=== PATIENT | male | born 1930 | race Caucasian/White ===

== ENCOUNTER → 2017-08-31 | Day surgery (SDC) | payer OTHER ==
[~2017-08-31] VITALS: Ht 167.6 cm; Wt 71.5 kg
[~2017-08-31] MED LIST: *ENALAPRILAT 1.25 MG/ML VIAL PERIprocedural Use ONLY ONE; ACETAMINOPHEN 1000 MG/100 ML 100 ML IV ONE; ASPI81TA23 PO; CEPH-459 PO; CHLORHEXIDINE GLUCONATE 2 % 1 PACK (2 CLOTHS) TOPICAL PRN; DO NOT ADM ANY ANTICOAGULANT DRUGS PRN; LACTATED RINGER'S 1000 ML IV PRN; LISI-515 PO; METF500T PO; METOPROLOL TARTRATE 25 MG TAB PO PRN; ONDANSETRON ODT 4 MG TAB SL PRN; PERC10TA27 PO; PERC5TAB12 PO; POVIDONE IODINE 5% (ANTISEPSIS KIT) 4 APPLICATIONS EACH NARE PRN; SODIUM CHLORID 0.9% 500 ML IV PRN; SODIUM CHLORIDE 0.9% INJ 100 ML ONE; ceFAZolin 2 GM/DEX PREMIX 50 ML IV SCH; ceFAZolin INJ 1,000 MG VIAL ONE; hydrALAZINE HCL 20 MG/ML VIAL IV PUSH ONE; hydrALAZINE HCL 20 MG/ML VIAL ONE; oxyCODONE/ACETAMINOPHEN 5 MG/325 MG TAB PO PRN
[2017-08-31 08:45] LABS: AUTOMATED NEUTROPHIL # 3.8 TH/MM3 (1.8-7.7); BASOPHIL % 0.5 % (0.0-2.0); EOSINOPHIL # 0.1 TH/MM3 (0-0.4); EOSINOPHIL % 1.7 % (0.0-4.0); HEMATOCRIT 42.5 % (39.0-51.0); HEMOGLOBIN 14.5 GM/DL (13.0-17.0); LYMPH % 27.4 % (9.0-44.0); LYMPHOCYTE # 1.6 TH/MM3 (1.0-4.8); MEAN CELL VOLUME 83.8 FL (80.0-100.0); MEAN CORPUSCULAR HEMOGLOBIN 28.6 PG (27.0-34.0); MEAN CORPUSCULAR HGB CONC 34.2 % (32.0-36.0); MEAN PLATELET VOLUME 7.4 FL (7.0-11.0); MONO % 6.6 % (0.0-8.0); MONOCYTE # 0.4 TH/MM3 (0-0.9); NEUT % 63.8 % (16.0-70.0); PLATELET COUNT 183 TH/MM3 (150-450); RED BLOOD COUNT 5.07 MIL/MM3 (4.50-5.90); RED CELL DISTRIBUTION WIDTH 13.5 % (11.6-17.2); WHITE BLOOD COUNT 5.9 TH/MM3 (4.0-11.0)
--- NOTE | 2017-08-31 11:48 | PD.OP ---
Operative Report Date of Surgery: Aug 31, 2017 Preoperative Diagnosis: (1) Bladder mass Postoperative Diagnosis: (1) Bladder mass Procedure: Cystoscopy and transurethral resection of bladder tumor Anesthesia: General Surgeon: Glenroy Bell Ice Handler(s): None Operation and Findings: Indication for procedures: Case of a pleasant 87-year-old gentleman who was recently discovered to have a large tumor mass extending from the dome towards the posterior bladder wall and presents now for transurethral resection. Operative procedure in detail: Patient was brought to the operating room suite and placed supine on the OR table. He was then placed under general anesthesia. He was then repositioned in the dorsolithotomy position and prepped and draped in normal sterile fashion. After an appropriate timeout was undertaken, I proceeded with cystoscopic evaluation utilizing the rigid cystoscope with the 20 Nepalese sheath and the 30 lens. Once again noted was a large tumor mass extending from the bladder dome down the upper posterior wall. The tumor was frondular in appearance. Both right and left ureteral orifice ease were correct anatomic position draining clear yellow urine. I exchanged the rigid cystoscope for the resectoscope with the 24 Nepalese Cutting Loop and proceeded with transurethral resection of this large bladder tumor. The tumor base was greater than 5 cm in size. The tumor itself did appear quite superficial nature. Once the tumor was fully resected the base was fulgurated for hemostasis. A 20 Nepalese 10 cc Floyd catheter was then placed and connected to gravity drainage. The patient tolerated the procedures without complications and was transferred to the PACU in satisfactory condition. Glenroy Bell MD Aug 31, 2017 11:48
[2017-08-31 13:57] VITALS: BP 164/52; PULSE 68; RESP 18; TEMP 97.4; O2SAT 97
--- NOTE | 2017-08-31 22:55 | EKG ---
Date Performed: 08/31/2017 Time Performed: 08:03:37 PTAGE: 87 years EKG: SINUS BRADYCARDIA WITH OCCASIONAL SUPRAVENTRICULAR PREMATURE COMPLEXES RIGHT BUNDLE BRANCH BLOCK ABNORMAL ECG PREVIOUS TRACING : 02/05/2014 12.59 DOCTOR: Nelsy Jules Interpretating Date/Time 08/31/2017 22:52:00
== END | disposition home or self-care (01) ==
LOC: HSDC 07:22
PROVIDERS: ATTEND Urology
DX: D49.4 Neoplasm of unspecified behavior of bladder (principal); I10 Essential (primary) hypertension; E11.9 Type 2 diabetes mellitus without complications; Z79.84 Long term (current) use of oral hypoglycemic drugs; Z79.82 Long term (current) use of aspirin
CPT/HCPCS: 00912; 52240; 85025; 88307; 93005; J0131; J0360; J0690; J3010; J7120

== ENCOUNTER 2017-12-30 13:26 | Inpatient (IN) ==
[2017-12-30] MEDS ORDERED: Morphine Inj 4 MG/ML Vial IV.PUSH ONE (14:29)
--- NOTE | 2017-12-30 14:32 | ED ---
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 He states the pain is currently a 10 out of 10. He denies any fevers, diarrhea, or other symptoms. They do not know of any exacerbating or alleviating factors. He denies any chest pains, shortness of breath, or other symptoms. Related Data Home Medications Medication Instructions Recorded Confirmed lisinopril 2.5 mg PO BID 12/30/17 12/30/17 metformin 1,000 mg PO BID 12/30/17 12/30/17 oxycodone 10 mg PO BID PRN 12/30/17 12/30/17 trazodone 25 mg PO HS 12/30/17 12/30/17 Allergies Allergy/AdvReac Type Severity Reaction Status Date / Time No Known Allergies Allergy Verified 12/30/17 13:38 Review of Systems ROS: all other systems reviewed are negative PMFSH History History Provided By: Patient Medical History Medical History Diabetes (Acute) Hx of bladder cancer (Acute) Hypertension (Acute) Surgical History Surgical History Hx of bladder repair surgery (Acute) Family History Family History Other No pertinent family history Social History Social History Substance History: No History of Abuse Smoking Status: Heavy tobacco smoker Tobacco Type: Cigars How Often Do You Have a Drink Containing Alcohol: Never Recent Travel in [facility] within the Last 8 Weeks: No Recent Out of Country Travel within the Last 8 Weeks: No Exam Narrative Exam Narrative: GENERAL: Well-developed elderly male patient currently in moderate distress. Awake, alert, oriented x3. SKIN: Focused skin assessment warm/dry. HEAD: Atraumatic. Normocephalic. EYES: Pupils equal and round. No scleral icterus. No injection or drainage. ENT: No nasal bleeding or discharge. Mucous membranes pink and moist. NECK: Trachea midline. No JVD. CARDIOVASCULAR: Regular rate and rhythm. No murmur appreciated. RESPIRATORY: No accessory muscle use. Clear to auscultation. Breath sounds equal bilaterally. GASTROINTESTINAL: Abdomen diffuse abdominal tenderness, moderately distended. Hepatic and splenic margins not palpable. MUSCULOSKELETAL: No obvious deformities. No clubbing. No cyanosis. No edema. NEUROLOGICAL: Awake and alert. No obvious cranial nerve deficits. Motor grossly within normal limits. Normal speech. PSYCHIATRIC: Appropriate mood and affect; insight and judgment normal. Course Initial Documented Vital Signs Temperature 97.8 F 12/30/17 13:35 Pulse Rate 92 H 12/30/17 13:35 Respiratory Rate 16 12/30/17 13:35 Blood Pressure 181/83 H 12/30/17 13:35 Pulse Oximetry 95 12/30/17 13:35 Last Documented Vital Signs Temperature 97.8 F 12/30/17 13:35 Pulse Rate 66 12/30/17 17:14 Respiratory Rate 18 12/30/17 17:14 Blood Pressure 208/75 H 12/30/17 17:14 Pulse Oximetry 96 12/30/17 17:14 Medical Decision Making MDM Narrative Medical decision making narrative: Lab work shows elevated BUN and creatinine and CAT scan had to be done without contrast. It shows significant ascites and left pleural effusion. There is also a notable small bowel obstruction. Patient's blood pressure is fairly elevated in the ER, likely secondary to pain. He was given multiple courses of pain medications. He will need to have this issue treated and observed as well. At this point, plan would be to admit the patient for further treatment. Case is discussed with Dr. Felipe for admission. Medical Screen Exam Complete: Yes Emergency Medical Condition: Yes Differential Diagnosis Differential Diagnosis: Obstruction versus perforation versus acute intra- abdominal processes versus gastroenteritis Lab Data Lab results reviewed: Yes I reviewed the patient's lab results. Result diagrams: 12/30/17 14:47 12/30/17 14:47 Lab Results 12/30/17 12/30/17 12/30/17 Range/Units 14:47 14:47 14:47 CBC w Diff Auto diff final WBC 8.9 (4.0-11.0) th/mm3 RBC 5.51 (4.50-5.90) mil/mm3 Hgb 15.7 (13.0-17.0) gm/dL Hct 47.1 (39.0-51.0) % MCV 85.4 (80.0-100.0) fL MCH 28.5 (27.0-34.0) pg MCHC 33.4 (32.0-36.0) % RDW 13.1 (11.6-17.2) % Plt Count 205 (150-450) th/mm3 MPV 7.2 (7.0-11.0) fL Neut % (Auto) 79.7 H (16.0-70.0) % Lymph % (Auto) 10.4 (9.0-44.0) % [place] % (Auto) 9.3 H (0.0-8.0) % Eos % (Auto) 0.2 (0.0-4.0) % Baso % (Auto) 0.4 (0.0-2.0) % Neut # (Auto) 7.2 (1.8-7.7) th/mm3 Lymph # (Auto) 0.9 L (1.0-4.8) th/mm3 [place] # (Auto) 0.8 (0.0-0.9) th/mm3 Eos # (Auto) 0.0 (0.0-0.4) th/mm3 Baso # (Auto) 0.0 (0.0-0.2) th/mm3 WBC Differential . Differential Comment . Sodium 140 (136-145) meq/L Potassium 4.6 (3.5-5.1) meq/L Chloride 103 (98-107) meq/L Carbon Dioxide 30.6 (21.0-32.0) meq/L Anion Gap 6 (5-15) meq/L BUN 40 H (7-18) mg/dL Creatinine 2.00 H (0.60-1.30) mg/dL Estimated GFR 32 L (>89) mL/min POC Glucose (68-110) mg/dl Random Glucose 164 H (74-106) mg/dL Lactic Acid 1.7 (0.4-2.0) mmol/L Calcium 8.8 (8.5-10.1) mg/dL Total Bilirubin 1.0 (0.2-1.0) mg/dL AST 16 (15-37) U/L ALT 12 (12-78) U/L Alkaline Phosphatase 73 (45-117) U/L Total Protein 6.9 (6.4-8.2) g/dL Albumin 2.9 L (3.4-5.0) g/dL Lipase 89 (73-393) U/L Urine Color (Yellw/Straw) Urine Clarity (Clear) Urine pH (5.0-8.5) Ur Specific [place] (1.002-1.035) Urine Protein (Neg-Trace) mg/dL Urine Glucose (UA) (Negative) mg/dL Urine Ketones (Negative) mg/dL Urine Occult Blood (Negative) Urine Nitrate (Negative) Urine Bilirubin (Negative) Urine Urobilinogen (Less than 2) mg/dL Ur Leukocyte Esterase (Negative) Urine RBC (0-3) /hpf Urine WBC (0-5) /hpf Ur Squamous Epith Cells (0-5) /hpf Urine Bacteria (None) /hpf Urine Mucus (Occasional) /lpf Micro UA Comment Ur Microscopic Review Urine Culture Comments 12/30/17 12/30/17 Range/Units 16:00 18:16 CBC w Diff WBC (4.0-11.0) th/mm3 RBC (4.50-5.90) mil/mm3 Hgb (13.0-17.0) gm/dL Hct (39.0-51.0) % MCV (80.0-100.0) fL MCH (27.0-34.0) pg MCHC (32.0-36.0) % RDW (11.6-17.2) % Plt Count (150-450) th/mm3 MPV (7.0-11.0) fL Neut % (Auto) (16.0-70.0) % Lymph % (Auto) (9.0-44.0) % [place] % (Auto) (0.0-8.0) % Eos % (Auto) (0.0-4.0) % Baso % (Auto) (0.0-2.0) % Neut # (Auto) (1.8-7.7) th/mm3 Lymph # (Auto) (1.0-4.8) th/mm3 [place] # (Auto) (0.0-0.9) th/mm3 Eos # (Auto) (0.0-0.4) th/mm3 Baso # (Auto) (0.0-0.2) th/mm3 WBC Differential Differential Comment Sodium (136-145) meq/L Potassium (3.5-5.1) meq/L Chloride (98-107) meq/L Carbon Dioxide (21.0-32.0) meq/L Anion Gap (5-15) meq/L BUN (7-18) mg/dL Creatinine (0.60-1.30) mg/dL Estimated GFR (>89) mL/min POC Glucose 137 H (68-110) mg/dl Random Glucose (74-106) mg/dL Lactic Acid (0.4-2.0) mmol/L Calcium (8.5-10.1) mg/dL Total Bilirubin (0.2-1.0) mg/dL AST (15-37) U/L ALT (12-78) U/L Alkaline Phosphatase (45-117) U/L Total Protein (6.4-8.2) g/dL Albumin (3.4-5.0) g/dL Lipase (73-393) U/L Urine Color Yellow (Yellw/Straw) Urine Clarity Clear (Clear) Urine pH 5.5 (5.0-8.5) Ur Specific [place] Greater/equal 1.030 (1.002-1.035) Urine Protein 100 H (Neg-Trace) mg/dL Urine Glucose (UA) Negative (Negative) mg/dL Urine Ketones Trace H (Negative) mg/dL Urine Occult Blood Large H (Negative) Urine Nitrate Negative (Negative) Urine Bilirubin Negative (Negative) Urine Urobilinogen 1.0 (Less than 2) mg/dL Ur Leukocyte Esterase Negative (Negative) Urine RBC 51-189 H (0-3) /hpf Urine WBC 0-5 (0-5) /hpf Ur Squamous Epith Cells 0-5 (0-5) /hpf Urine Bacteria Few H (None) /hpf Urine Mucus Few H (Occasional) /lpf Micro UA Comment Culture not ind Ur Microscopic Review Microscopic reviewed Urine Culture Comments Culture not ind Imaging Data Attestation: I personally reviewed and interpreted this imaging study as follows : Radiologist's impression: Abdomen/Pelvis CT 12/30/17 14:29 CONCLUSION: 1. Left lower lobe consolidation and left pleural effusion. 2. Ascites. 3. Atherosclerosis. 4. Severe diverticulosis. 5. Abnormal dilated loops of small intestine are identified with transition point in the central abdomen, imaging features characteristic of small bowel obstruction. ECG Data Attestation: I personally reviewed and interpreted this ECG as follows: Interpretation: EKG shows normal sinus rhythm with a rate of 76 bpm, there is a right bundle branch block pattern. No signs of acute ST elevations or depressions. Discharge Plan Discharge Disposition Patient Disposition: 30 Still Patient Discharge Condition Condition: Stable Discharge Details Anticipated Discharge Date: 12/30/17 Diagnosis: Small bowel obstruction Physicians Team ED Provider: Marie Javier Primary Care Provider: UNKNOWN, Attending Provider: Andres Wellington Other Providers: Stu Salazar Discharge Interventions Interventions: ED Discharge Assessment Last Done: 12/30/17 17:50 Vital Signs Last Done: 12/30/17 17:14 Status ED Status: Left Department Discharge Information Discharge Date/Time: 12/30/17 17:45
[2017-12-30 14:55] LABS: Baso % (Auto) 0.4 % (0.0-2.0); Eos % (Auto) 0.2 % (0.0-4.0); Hematocrit 47.1 % (39.0-51.0); Hemoglobin 15.7 gm/dL (13.0-17.0); Lymph # (Auto) 0.9 th/mm3 (1.0-4.8); Lymph % (Auto) 10.4 % (9.0-44.0); Mean Corpuscular HGB Conc 33.4 % (32.0-36.0); Mean Corpuscular Hemoglobin 28.5 pg (27.0-34.0); Mean Corpuscular Volume 85.4 fL (80.0-100.0); Mean Platelet Volume 7.2 fL (7.0-11.0); Mono # (Auto) 0.8 th/mm3 (0.0-0.9); Mono % (Auto) 9.3 % (0.0-8.0); Neut # (Auto) 7.2 th/mm3 (1.8-7.7); Neut % (Auto) 79.7 % (16.0-70.0); Platelet Count 205 th/mm3 (150-450); Red Blood Count 5.51 mil/mm3 (4.50-5.90); Red Cell Distribution Width 13.1 % (11.6-17.2); White Blood Count 8.9 th/mm3 (4.0-11.0)
[2017-12-30 15:21] LABS: Chloride 103 meq/L (98-107); Potassium 4.6 meq/L (3.5-5.1); Sodium 140 meq/L (136-145)
[2017-12-30 15:24] LABS: Calcium 8.8 mg/dL (8.5-10.1)
[2017-12-30 15:25] LABS: Albumin 2.9 g/dL (3.4-5.0); Anion Gap 6 meq/L (5-15); Blood Urea Nitrogen 40 mg/dL (7-18); Carbon Dioxide 30.6 meq/L (21.0-32.0); Glucose,Random 164 mg/dL (74-106); Lipase 89 U/L (73-393)
[2017-12-30 15:28] LABS: Alanine Aminotransferase 12 U/L (12-78); Aspartate Aminotransferase 16 U/L (15-37); Glomerular Filtration Rate 32 mL/min (>89)
[2017-12-30 15:30] LABS: Total Protein 6.9 g/dL (6.4-8.2)
[2017-12-30 15:31] LABS: Alkaline Phosphatase 73 U/L (45-117)
[2017-12-30 16:07] LABS: Bilirubin,Urine Negative (Negative); Clarity,Urine Clear (Clear); Color,Urine Yellow (Yellw/Straw); Glucose,Urine (UA) Negative (Negative); Leukocyte Esterase,Urine Negative (Negative); Nitrite,Urine Negative (Negative); PH,Urine 5.5 (5.0-8.5); Specific Gravity,Urine Greater/Equal 1.030 (1.002-1.035)
--- NOTE | 2017-12-30 16:13 | CT ---
EXAM DATE: 12/30/2017 2:29 PM EDT AGE/SEX: 87 years / Male INDICATIONS: Abdominal pain. Bloating. Nausea. Vomiting. CLINICAL DATA: This is the patient's initial encounter. Patient reports that signs and symptoms have been present for 1 day and indicates a pain score of 10/10. MEDICAL/SURGICAL HISTORY: Carcinoma, bladder. Diabetes. Hypertension. None. RADIATION DOSE: 20.72 CTDI (mGy) COMPARISON: POI, CT ABDOMEN AND PELVIS W/ CONTRAST, 03/12/2017. . TECHNIQUE: Multiple contiguous axial images were obtained through the abdomen. Images were obtained using multiple row detector helical technique. Using automated exposure control and adjustment of the mA and/or kV according to patient size, radiation dose was kept as low as reasonably achievable to o btain optimal diagnostic quality images. DICOM format image data is available electronically for rev iew and comparison. FINDINGS: There is a large left effusion and left lower lobe airspace disease. Atherosclerotic calcification of the aorta and coronary arteries noted. There is ascites identified greatest in the perihepatic regio n. There is severe diverticulosis of the sigmoid colon and descending colon identified without eviden ce of diverticulitis. The appendix is normal. Distal ileal loops are decompressed. There is a transit ion point in the central abdomen proximal to which there are moderately dilated loops of fluid and ai r-filled small bowel. Calcified splenic granulomas are noted. There are pancreatic calcifications alana racteristic of chronic pancreatitis. Adrenals are unremarkable. Bilateral renal vascular calcificatio ns are noted. There is mild distention of the gallbladder. There are degenerative changes of the spin e noted. 2 mm nonobstructing left lower pole renal calculus. CONCLUSION: 1. Left lower lobe consolidation and left pleural effusion. 2. Ascites. 3. Atherosclerosis. 4. Severe diverticulosis. 5. Abnormal dilated loops of small intestine are identified with transition point in the central abd omen, imaging features characteristic of small bowel obstruction. Electronically signed by: Rah Moore MD 12/30/2017 4:11 PM EDT
[2017-12-30] MEDS ORDERED: Morphine Sulfate Inj 2 MG/ML Vial IV.PUSH ONE (16:16)
[2017-12-30 16:17] LABS: Bacteria,Urine Few /hpf; Mucus,Urine Few /lpf (Occasional); RBC,Urine 51-189 /hpf (0-3); Squamous Epithelial Cell,Urine 0-5 /hpf (0-5); WBC,Urine 0-5 /hpf (0-5)
[2017-12-30] MEDS ORDERED: Dextrose 50% in Water 50 ML Vial IV.PUSH PRN (17:24)
--- NOTE | 2017-12-30 17:33 | P.HPIM ---
History of Present Illness Primary Care Physician: UNKNOWN Chief Complaint: abdominal pain History of Present Illness: patient is a 87 y/o male with history of bladder cancer,hypertension and diabetes who presented to ER with abdominal pain. he says that the pain started two days ago. pain is more or less generalized with no radiation. pain is moderate in intensity. pain was associated with nausea, emesis and some loose bowel movements yesterday. he denies any sob, cough or fever. Inpatient Certification: I certify that the inpatient services were ordered in accordance with Medicare regulations governing the order. This includes certification that hospital inpatient services are reasonable and necessary and in the case of services not specified as inpatient-only under 42 CFR 419.22(n), that they are appropriately provided as inpatient services in accordance to with the 2-midnight benchmark under 43 CFR 412.3(e) Estimated Total Length of Stay (Days): 2 Plans for Post Hospital Care: Home Review of Systems All other systems reviewed negative except as stated in HPI PMFSH - History History Provided By: Patient - Medical History Medical History: Medical History (Last Reviewed 12/30/17 @ 17:29 by Andres Wellington MD) Diabetes Hx of bladder cancer Hypertension - Surgical History Surgical History: Surgical History (Last Reviewed 12/30/17 @ 17:29 by Andres Wellington MD) Hx of bladder repair surgery - Family History Family History: Family History (Last Updated 12/30/17 @ 17:28 by Andres Wellington MD) Other No pertinent family history - Tobacco History Tobacco Use In Past 30 Days: Yes Smoking Status: Heavy tobacco smoker Tobacco Type: Cigars - Alcohol History How Often Do You Have a Drink Containing Alcohol: Never - Substance Use History Substance History: No History of Abuse - Travel History Recent Travel in the [place] Within the Last 8 Weeks: No Recent Travel Out of the Country Within the Last 8 Weeks: No - Immunization History Tetanus Immunization: Unsure Medications and Allergies Active Medications: Active Medications Sodium Chloride (Ns Flush) 2 ml IV.FLUSH PRN PRN PRN Reason: FLUSH AFTER USING IV ACCESS Last Admin: 12/30/17 14:53 Dose: 2 ml Allergies Allergy/AdvReac Type Severity Reaction Status Date / Time No Known Allergies Allergy Verified 12/30/17 13:38 Home Medications Medication Instructions Recorded Confirmed Type lisinopril 2.5 mg PO BID 12/30/17 12/30/17 History metformin 1,000 mg PO BID 12/30/17 12/30/17 History oxycodone 10 mg PO BID PRN 12/30/17 12/30/17 History trazodone 25 mg PO HS 12/30/17 12/30/17 History Exam Vital signs: Vital Signs 12/30/17 13:35 12/30/17 15:20 12/30/17 17:14 Temperature 97.8 F Pulse Rate 92 H 72 66 Respiratory Rate 18 Blood Pressure 181/83 H 200/77 H 208/75 H Pulse Oximetry 95 96 96 Intake & Output 12/29/17 12/30/17 12/30/17 18:59 06:59 18:59 Weight 74 kg - Constitutional no acute distress - Routine HEENT Exam Eye: Present: PERRL - Routine Neck Exam Present: supple - Routine Respiratory Exam Present: CTA bilaterally - Routine Cardiovascular Exam Present: RRR - Routine Abdominal Exam Present: soft, tenderness (mild generalized tenderness.), distended - Routine Extremities Exam Comments: mild bilateral pedal edema. - Routine Neurological Exam Present: alert, oriented X3 Results - Labs CBC & Chem 7: 12/30/17 14:47 12/30/17 14:47 Labs: Short CBC 12/30/17 Range/Units 14:47 WBC 8.9 (4.0-11.0) th/mm3 Hgb 15.7 (13.0-17.0) gm/dL Hct 47.1 (39.0-51.0) % Plt Count 205 (150-450) th/mm3 BMP 12/30/17 14:47 Sodium 140 Potassium 4.6 Chloride 103 Carbon Dioxide 30.6 BUN 40 H Creatinine 2.00 H Calcium 8.8 Liver Function 12/30/17 Range/Units 14:47 Total Bilirubin 1.0 (0.2-1.0) mg/dL AST 16 (15-37) U/L ALT 12 (12-78) U/L Alkaline Phosphatase 73 (45-117) U/L Albumin 2.9 L (3.4-5.0) g/dL Urine 12/30/17 Range/Units 16:00 Urine Color Yellow (Yellw/Straw) Urine Clarity Clear (Clear) Urine pH 5.5 (5.0-8.5) Ur Specific [place] Greater/equal 1.030 (1.002-1.035) Urine Protein 100 H (Neg-Trace) mg/dL Urine Glucose (UA) Negative (Negative) mg/dL - Imaging Impressions Abdomen/Pelvis CT 12/30/17 14:29 CONCLUSION: 1. Left lower lobe consolidation and left pleural effusion. 2. Ascites. 3. Atherosclerosis. 4. Severe diverticulosis. 5. Abnormal dilated loops of small intestine are identified with transition point in the central abdomen, imaging features characteristic of small bowel obstruction. Caprini VTE Risk Assessment Caprini VTE Risk Assessment: Moderate/High Risk (score >= 2) Caprini Risk Assessment Model: Point Value = 1 Point Value = 2 Point Value = 3 Point Value = 5 Age 41-60 Minor surgery BMI > 25 kg/m2 Swollen legs Varicose veins or History of unexplained or recurrent spontaneous Oral contraceptives or hormone replacement Sepsis (< 1 month) Serious lung disease, including pneumonia (< 1 month) Abnormal pulmonary function Acute myocardial infarction Congestive heart failure (< 1 month) History of inflammatory bowel disease Medical patient at bed rest Age 61-74 Arthroscopic surgery Major open surgery (> 45 min) Laparoscopic surgery (> 45 min) Malignancy Confined to bed (> 72 hours) Immobilizing plaster cast Central venous access Age >= 75 History of VTE Family history of VTE Factor V Leiden Prothrombin [id number] Lupus anticoagulant Anticardiolipin antibodies Elevated serum homocysteine Heparin-induced thrombocytopenia Other congenital or acquired thrombophilia Stroke (< 1 month) Elective arthroplasty Hip, pelvis, or leg fracture Acute spinal cord injury (< 1 month) Prophylaxis Regimen: Total Risk Factor Score Risk Level Prophylaxis Regimen 0-1 Low Early ambulation 2 Moderate Order ONE of the following: *Sequential Compression Device (SCD) *Heparin 5000 units SQ BID 3-4 Higher Order ONE of the following medications: *Heparin 5000 units SQ TID *Enoxaparin/Lovenox 40 mg SQ daily (WT < 150 kg, CrCl > 30 mL/min) *Enoxaparin/Lovenox 30 mg SQ daily (WT < 150 kg, CrCl > 10-29 mL/min) *Enoxaparin/Lovenox 30 mg SQ BID (WT < 150 kg, CrCl > 30 mL/min) AND/OR *Sequential Compression Device (SCD) 5 or more Highest Order ONE of the following medications: *Heparin 5000 units SQ TID (Preferred with Epidurals) *Enoxaparin/Lovenox 40 mg SQ daily (WT < 150 kg, CrCl > 30 mL/min) *Enoxaparin/Lovenox 30 mg SQ daily (WT < 150 kg, CrCl > 10-29 mL/min) *Enoxaparin/Lovenox 30 mg SQ BID (WT < 150 kg, CrCl > 30 mL/min) AND *Sequential Compression Device (SCD) Assessment and Plan - Plan A/P - small bowel obstruction keep NPO for now and continue with supportive care with IV fluid, pain control and antiemetics- KUB tomorrow and consult general surgery. -diabetes mellitus; start on accu-check with SSI -hypertension- IV Vasotec prn for now- continue to monitor and adjust the regimen as needed. -renal insufficiency with unknown duration- continue with IV fluid and monitor the renal function. -Ascites; check abdominal sonogram -left pleural effusion on abdominal CT; will check CXR -history of bladder cancer. -DVT prophylaxis with SCD's Discussed Condition With: ER physician and the patient.
--- NOTE | 2017-12-30 18:18 | P.CONGS ---
[facility] Gen Surgery Consult Note Consult date: 12/30/17 Reason for consult: abdominal pain Requesting physician: Andres Wellington Narrative: This is an 87 year old male with a past medical history of hypertension and bladder cancer s/p resection about [address] Bell. The patient states he was in his usual state of health until Thursday evening when he developed abdominal pain with associated nausea and vomiting. The patient does state that he has had loose bowel movements. A CT abdomen/pelvis was obtained which shows dilated loops of small bowel. The patient states he last had a vomiting episode yesterday. After talking with his daughter, she states that they just traveled back from [place] on Thursday to visit his terminally ill daughter. A family member at the bedside reports similar symptoms as patient that she developed yesterday. A General Surgery consultation has been requested. Review of Systems All other systems reviewed negative except as stated in [facility] PMF[facility] - History History Provided By: Patient - Medical History Medical History: Medical History (Last Reviewed 12/30/17 @ 18:27 by ASHLEY Gross) Diabetes Hx of bladder cancer Hypertension - Surgical History Surgical History: Surgical History (Last Reviewed 12/30/17 @ 18:27 by ASHLEY Gross) Hx of bladder repair surgery - Family History Family History: Family History (Last Updated 12/30/17 @ 17:28 by Andres Wellington MD) Other No pertinent family history - Tobacco History Tobacco Use In Past 30 Days: Yes Smoking Status: Heavy tobacco smoker Tobacco Type: Cigars - Alcohol History How Often Do You Have a Drink Containing Alcohol: Never - Substance Use History Substance History: No History of Abuse - Travel History Recent Travel in the [facility] Within the Last 8 Weeks: No Recent Travel Out of the Country Within the Last 8 Weeks: No - Immunization History Tetanus Immunization: Unsure Medications and Allergies Allergies Allergy/AdvReac Type Severity Reaction Status Date / Time No Known Allergies Allergy Verified 12/30/17 13:38 Home Medications Medication Instructions Recorded Confirmed Type metformin 1,000 mg PO BID 12/30/17 12/30/17 History oxycodone 10 mg PO BID PRN 12/30/17 12/30/17 History trazodone 25 mg PO HS 12/30/17 12/30/17 History lisinopril 20 mg PO BID 01/02/18 01/02/18 History Active Medications: Active Medications Dextrose (D50w Vial) 50 ml IV.PUSH UNSCH PRN PRN Reason: PER HYPOGLYCEMIA PROTOCOL Enalaprilat (Vasotec Inj) 2.5 mg IV.PUSH Q8H PRN PRN Reason: SBP > 180 or DBP > 100 Glucagon (Glucagon Inj) 1 mg OTHER PRN PRN PRN Reason: for Hypoglycemia Protocol Sodium Chloride (Ns Inj) 1,000 mls @ 84 mls/hr IV.CONT .[id number] OMID Insulin Aspart (Novolog Insulin Correctional Sugar Inj) 0 unit SQ ACHS OMID; Protocol Morphine Sulfate (Morphine Inj) 2 mg IV.PUSH Q4H PRN PRN Reason: acute pain Ondansetron HCl (Zofran Inj) 4 mg IV.PUSH Q8H PRN PRN Reason: nausea Sodium Chloride (Ns Flush) 2 ml IV.FLUSH PRN PRN PRN Reason: FLUSH AFTER USING IV ACCESS Last Admin: 12/30/17 14:53 Dose: 2 ml Exam Vital signs: Laboratory Results CBC w Diff Auto diff final 12/30/17 14:47 WBC 8.9 th/mm3 (4.0-11.0) 12/30/17 14:47 RBC 5.51 mil/mm3 (4.50-5.90) 12/30/17 14:47 Hgb 15.7 gm/dL (13.0-17.0) 12/30/17 14:47 Hct 47.1 % (39.0-51.0) 12/30/17 14:47 MCV 85.4 fL (80.0-100.0) 12/30/17 14:47 MCH 28.5 pg (27.0-34.0) 12/30/17 14:47 MCHC 33.4 % (32.0-36.0) 12/30/17 14:47 RDW 13.1 % (11.6-17.2) 12/30/17 14:47 Plt Count 205 th/mm3 (150-450) 12/30/17 14:47 MPV 7.2 fL (7.0-11.0) 12/30/17 14:47 Neut % (Auto) 79.7 % (16.0-70.0) H 12/30/17 14:47 Lymph % (Auto) 10.4 % (9.0-44.0) 12/30/17 14:47 Robeson % (Auto) 9.3 % (0.0-8.0) H 12/30/17 14:47 Eos % (Auto) 0.2 % (0.0-4.0) 12/30/17 14:47 Baso % (Auto) 0.4 % (0.0-2.0) 12/30/17 14:47 Neut # (Auto) 7.2 th/mm3 (1.8-7.7) 12/30/17 14:47 Lymph # (Auto) 0.9 th/mm3 (1.0-4.8) L 12/30/17 14:47 Robeson # (Auto) 0.8 th/mm3 (0.0-0.9) 12/30/17 14:47 Eos # (Auto) 0.0 th/mm3 (0.0-0.4) 12/30/17 14:47 Baso # (Auto) 0.0 th/mm3 (0.0-0.2) 12/30/17 14:47 WBC Differential . 12/30/17 14:47 Differential Comment . 12/30/17 14:47 Sodium 140 meq/L (136-145) 12/30/17 14:47 Potassium 4.6 meq/L (3.5-5.1) 12/30/17 14:47 Chloride 103 meq/L (98-107) 12/30/17 14:47 Carbon Dioxide 30.6 meq/L (21.0-32.0) 12/30/17 14:47 Anion Gap 6 meq/L (5-15) 12/30/17 14:47 BUN 40 mg/dL (7-18) H 12/30/17 14:47 Creatinine 2.00 mg/dL (0.60-1.30) H 12/30/17 14:47 Estimated GFR 32 mL/min (>89) L 12/30/17 14:47 POC Glucose 137 mg/dl (68-110) H 12/30/17 18:16 Random Glucose 164 mg/dL (74-106) H 12/30/17 14:47 Lactic Acid 1.7 mmol/L (0.4-2.0) 12/30/17 14:47 Calcium 8.8 mg/dL (8.5-10.1) 12/30/17 14:47 Total Bilirubin 1.0 mg/dL (0.2-1.0) 12/30/17 14:47 AST 16 U/L (15-37) 12/30/17 14:47 ALT 12 U/L (12-78) 12/30/17 14:47 Alkaline Phosphatase 73 U/L (45-117) 12/30/17 14:47 Total Protein 6.9 g/dL (6.4-8.2) 12/30/17 14:47 Albumin 2.9 g/dL (3.4-5.0) L 12/30/17 14:47 Lipase 89 U/L (73-393) 12/30/17 14:47 Urine Color Yellow (Yellw/Straw) 12/30/17 16:00 Urine Clarity Clear (Clear) 12/30/17 16:00 Urine pH 5.5 (5.0-8.5) 12/30/17 16:00 Ur Specific Curtis Greater/equal 1.030 (1.002-1.035) 12/30/17 16:00 Urine Protein 100 mg/dL (Neg-Trace) H 12/30/17 16:00 Urine Glucose (UA) Negative mg/dL (Negative) 12/30/17 16:00 Urine Ketones Trace mg/dL (Negative) H 12/30/17 16:00 Urine Occult Blood Large (Negative) H 12/30/17 16:00 Urine Nitrate Negative (Negative) 12/30/17 16:00 Urine Bilirubin Negative (Negative) 12/30/17 16:00 Urine Urobilinogen 1.0 mg/dL (Less than 2) 12/30/17 16:00 Ur Leukocyte Esterase Negative (Negative) 12/30/17 16:00 Urine RBC 51-189 /hpf (0-3) H 12/30/17 16:00 Urine WBC 0-5 /hpf (0-5) 12/30/17 16:00 Ur Squamous Epith Cells 0-5 /hpf (0-5) 12/30/17 16:00 Urine Bacteria Few /hpf (None) H 12/30/17 16:00 Urine Mucus Few /lpf (Occasional) H 12/30/17 16:00 Micro UA Comment Culture not ind 12/30/17 16:00 Ur Microscopic Review Microscopic reviewed 12/30/17 16:00 Urine Culture Comments Culture not ind 12/30/17 16:00 Impressions Abdomen/Pelvis CT 12/30/17 14:29 CONCLUSION: 1. Left lower lobe consolidation and left pleural effusion. 2. Ascites. 3. Atherosclerosis. 4. Severe diverticulosis. 5. Abnormal dilated loops of small intestine are identified with transition point in the central abdomen, imaging features characteristic of small bowel obstruction. Narrative: GENERAL: 87 year old male resting in bed is mild acute distress secondary to abdominal discomfort. SKIN: Warm and dry. HEAD: Atraumatic. Normocephalic. EYES: Pupils equal and round. No scleral icterus. No injection or drainage. ENT: No nasal bleeding or discharge. Mucous membranes pink and moist. NECK: Trachea midline. CARDIOVASCULAR: Regular rate and rhythm. RESPIRATORY: No accessory muscle use. Clear to auscultation. Breath sounds equal bilaterally. GASTROINTESTINAL: Abdomen soft, distended. Tender throughout abdomen. Faint hypoactive BS. No visible scars on abdomen. MUSCULOSKELETAL: Extremities without clubbing, cyanosis, or edema. No obvious deformities. NEUROLOGICAL: Awake and alert. No obvious cranial nerve deficits. Motor grossly within normal limits. Five out of 5 muscle strength in the arms and legs. Normal speech. PSYCHIATRIC: Appropriate mood and affect; insight and judgment normal. Results - Labs 01/05/18 04:50 01/05/18 04:50 Laboratory Results - last 24 hr 12/30/17 12/30/17 12/30/17 14:47 14:47 14:47 CBC w Diff Auto diff final WBC 8.9 RBC 5.51 Hgb 15.7 Hct 47.1 MCV 85.4 MCH 28.5 MCHC 33.4 RDW 13.1 Plt Count 205 MPV 7.2 Neut % (Auto) 79.7 H Lymph % (Auto) 10.4 Robeson % (Auto) 9.3 H Eos % (Auto) 0.2 Baso % (Auto) 0.4 Neut # (Auto) 7.2 Lymph # (Auto) 0.9 L Robeson # (Auto) 0.8 Eos # (Auto) 0.0 Baso # (Auto) 0.0 WBC Differential . Differential Comment . Sodium 140 Potassium 4.6 Chloride 103 Carbon Dioxide 30.6 Anion Gap 6 BUN 40 H Creatinine 2.00 H Estimated GFR 32 L Random Glucose 164 H Lactic Acid 1.7 Calcium 8.8 Total Bilirubin 1.0 AST 16 ALT 12 Alkaline Phosphatase 73 Total Protein 6.9 Albumin 2.9 L Lipase 89 Urine Color Urine Clarity Urine pH Ur Specific Curtis Urine Protein Urine Glucose (UA) Urine Ketones Urine Occult Blood Urine Nitrate Urine Bilirubin Urine Urobilinogen Ur Leukocyte Esterase Urine RBC Urine WBC Ur Squamous Epith Cells Urine Bacteria Urine Mucus Micro UA Comment Ur Microscopic Review Urine Culture Comments 12/30/17 16:00 CBC w Diff WBC RBC Hgb Hct MCV MCH MCHC RDW Plt Count MPV Neut % (Auto) Lymph % (Auto) Robeson % (Auto) Eos % (Auto) Baso % (Auto) Neut # (Auto) Lymph # (Auto) Robeson # (Auto) Eos # (Auto) Baso # (Auto) WBC Differential Differential Comment Sodium Potassium Chloride Carbon Dioxide Anion Gap BUN Creatinine Estimated GFR Random Glucose Lactic Acid Calcium Total Bilirubin AST ALT Alkaline Phosphatase Total Protein Albumin Lipase Urine Color Yellow Urine Clarity Clear Urine pH 5.5 Ur Specific Curtis Greater/equal 1.030 Urine Protein 100 H Urine Glucose (UA) Negative Urine Ketones Trace H Urine Occult Blood Large H Urine Nitrate Negative Urine Bilirubin Negative Urine Urobilinogen 1.0 Ur Leukocyte Esterase Negative Urine RBC 51-189 H Urine WBC 0-5 Ur Squamous Epith Cells 0-5 Urine Bacteria Few H Urine Mucus Few H Micro UA Comment Culture not ind Ur Microscopic Review Microscopic reviewed Urine Culture Comments Culture not ind - Imaging Imaging: ITS Impressions Abdomen/Pelvis CT 12/30/17 14:29 CONCLUSION: 1. Left lower lobe consolidation and left pleural effusion. 2. Ascites. 3. Atherosclerosis. 4. Severe diverticulosis. 5. Abnormal dilated loops of small intestine are identified with transition point in the central abdomen, imaging features characteristic of small bowel obstruction. CT scan - abdomen: image reviewed Assessment and Plan - Assessment (1) Small bowel obstruction Code(s): K56.609 - Unspecified intestinal obstruction, unspecified as to partial versus complete obstruction Status: Acute Plan: 87 year old male with abdominal pain; SBO -Plan for KUB in AM -IVF -NPO -Recommend inserting NGT if nausea/vomiting occur -Discussed management of SBO with operative vs non operative measures with both the patient and his daughter -Thank you for this consult; We will continue to follow - Plan Discussed Condition With: Dr. Wilfrid Oglesby RN Mr. Fraire and Natacha (daughter) at bedside - Attending Attestation patient seen at bedside sbo no hx of abdominal surgery prior The exam, history, and the medical decision-making described in the above note were completed with the assistance of the mid-level provider. I reviewed and agree with the findings presented. I attest that I had a [id number] encounter with the patient on the same day, and personally performed and documented my assessment and findings in the medical record. bowel obstruction await radiologic work up will likely need ng correct lytes transfer to main if no improvement in 24 hours
[2017-12-30] MEDS: Sod Chloride 0.9% Inj 1,000 ML IV.CONT SCH (18:26)
[2017-12-30] MEDS: Morphine Sulfate Inj 2 MG/ML Vial IV.PUSH PRN (18:26)
--- NOTE | 2017-12-30 18:45 | XR ---
EXAM DATE: 12/30/2017 12:00 AM EDT AGE/SEX: 87 years / Male INDICATIONS: Pleural effusion. CLINICAL DATA: This is the patient's initial encounter. Patient reports that signs and symptoms have been present for 1 day and indicates a pain score of 0/10. MEDICAL/SURGICAL HISTORY: Carcinoma, bladder. Diabetes. Hypertension. None. COMPARISON: [facility], CT ABDOMEN & PELVIS W/O CONTRAST, 12/30/2017. . FINDINGS: Compare June 2015. Development of left effusion with left basilar airspace disease. Right lung relat ively clear. No pneumothorax. Tortuous aorta. No acute bony abnormality. Peribronchial thickening. Mo derate osteoarthritis of the shoulders with calcified loose body in the left axillary recess. CONCLUSION: Small to moderate left pleural effusion with left basilar airspace disease. Right lung relatively vandana ar. Electronically signed by: Reinaldo Morrison MD 12/30/2017 6:44 PM EDT
[2017-12-30] MEDS: Insulin NovoLOG Aspart Correctional Sugar Inj SQ SCH (21:51)
[2017-12-30] MEDS ORDERED: hydrALAZINE HCl Inj 20 MG/ML Vial IV.PUSH ONE (22:00)
[2017-12-31] MEDS ORDERED: hydrALAZINE HCl Inj 20 MG/ML Vial IV.PUSH ONE (04:39)
[2017-12-31] MEDS ORDERED: Sodium Chloride 0.9% 2 ML Flush PRN IV.FLUSH (04:52)
[2017-12-31] MEDS: Sod Chloride 0.9% Inj 1,000 ML IV.CONT SCH ×2 (06:11→20:28)
--- NOTE | 2017-12-31 06:34 | XR ---
EXAM DATE: 12/31/2017 12:00 AM EDT AGE/SEX: 87 years / Male INDICATIONS: Obstruction. CLINICAL DATA: This is the patient's subsequent encounter. Patient reports that signs and symptoms h ave been present for 3 days and indicates a pain score of 0/10. MEDICAL/SURGICAL HISTORY: Carcinoma, bladder. Diabetes. Hypertension. None. COMPARISON: No prior exams available for comparison. FINDINGS: There is distention of small bowel loops centrally in the abdomen suspicious for obstruction. No cindy e air is identified. No organomegaly is evident. Osseous structures the lumbar spine are consistent with ankylosing spondylitis CONCLUSION: Findings suspicious for small bowel obstruction. CT scan is recommended if clinically indicated. Electronically signed by: Stu Armenta MD 12/31/2017 6:32 AM EDT
--- NOTE | 2017-12-31 07:05 | P.PNGS ---
Subjective Interval history: Had uneventful night Pain better Daughter at bedside Physical Exam Vital signs: Vital Signs 12/30/17 13:35 12/30/17 15:20 12/30/17 17:14 Temperature 97.8 F Pulse Rate 92 H 72 66 Respiratory Rate 16 18 18 Blood Pressure 181/83 H 200/77 H 208/75 H Pulse Oximetry 95 96 96 12/30/17 18:00 12/30/17 18:28 12/30/17 18:39 Temperature Pulse Rate 66 64 64 Respiratory Rate 33 H 33 H Blood Pressure 203/78 H 200/76 H Pulse Oximetry 92 L 90 L 12/30/17 18:42 12/30/17 19:00 12/30/17 20:00 Temperature Pulse Rate 66 64 58 L Respiratory Rate 30 H 31 H Blood Pressure 220/77 H Pulse Oximetry 93 L 12/30/17 20:17 12/30/17 22:00 12/30/17 22:17 Temperature 98 F Pulse Rate 62 60 Respiratory Rate 22 26 H Blood Pressure 185/64 H 200/67 H Pulse Oximetry 91 L 97 12/30/17 22:24 12/30/17 23:00 12/30/17 23:45 Temperature Pulse Rate 64 Respiratory Rate 57 H Blood Pressure 168/55 H Pulse Oximetry 97 96 12/31/17 00:00 12/31/17 02:24 12/31/17 04:00 Temperature 98 F Pulse Rate 70 78 64 Respiratory Rate 24 24 20 Blood Pressure 192/84 H Pulse Oximetry 95 12/31/17 04:21 12/31/17 05:00 12/31/17 06:00 Temperature 98 F Pulse Rate 62 60 70 Respiratory Rate 24 24 24 Blood Pressure 204/75 H 199/76 H 179/63 H Pulse Oximetry Intake & Output 12/30/17 12/31/17 12/31/17 18:59 06:59 18:59 Intake Total 1000 / 1000 Output Total 850 / 850 Balance 150 / 150 Weight 74 kg 68.9 kg Intake: IV 1000 / 1000 NS Inj 1,000 ML @ 84 mls/hr IV. 1000 / 1000 CONT .[id number] OMID Rx#: [id number] Output: Urine 850 / 850 Other: # Voids 1 Date of Last Bowel Movement 12/28/17 Weight On Admission 63.7 kg Narrative: Alert and awake Abd: non tender; soft; mildly distended Results - Labs 10/23/18 04:50 01/05/18 04:50 Laboratory Results - last 24 hr 12/30/17 12/30/17 12/30/17 14:47 14:47 14:47 CBC w Diff Auto diff final WBC 8.9 RBC 5.51 Hgb 15.7 Hct 47.1 MCV 85.4 MCH 28.5 MCHC 33.4 RDW 13.1 Plt Count 205 MPV 7.2 Neut % (Auto) 79.7 H Lymph % (Auto) 10.4 Mcdowell % (Auto) 9.3 H Eos % (Auto) 0.2 Baso % (Auto) 0.4 Neut # (Auto) 7.2 Lymph # (Auto) 0.9 L Mcdowell # (Auto) 0.8 Eos # (Auto) 0.0 Baso # (Auto) 0.0 WBC Differential . Differential Comment . Sodium 140 Potassium 4.6 Chloride 103 Carbon Dioxide 30.6 Anion Gap 6 BUN 40 H Creatinine 2.00 H Estimated GFR 32 L POC Glucose Random Glucose 164 H Lactic Acid 1.7 Calcium 8.8 Total Bilirubin 1.0 AST 16 ALT 12 Alkaline Phosphatase 73 Total Protein 6.9 Albumin 2.9 L Lipase 89 Urine Color Urine Clarity Urine pH Ur Specific [place] Urine Protein Urine Glucose (UA) Urine Ketones Urine Occult Blood Urine Nitrate Urine Bilirubin Urine Urobilinogen Ur Leukocyte Esterase Urine RBC Urine WBC Ur Squamous Epith Cells Urine Bacteria Urine Mucus Micro UA Comment Ur Microscopic Review Urine Culture Comments 12/30/17 12/30/17 12/30/17 16:00 18:16 21:51 CBC w Diff WBC RBC Hgb Hct MCV MCH MCHC RDW Plt Count MPV Neut % (Auto) Lymph % (Auto) Mcdowell % (Auto) Eos % (Auto) Baso % (Auto) Neut # (Auto) Lymph # (Auto) Mcdowell # (Auto) Eos # (Auto) Baso # (Auto) WBC Differential Differential Comment Sodium Potassium Chloride Carbon Dioxide Anion Gap BUN Creatinine Estimated GFR POC Glucose 137 H 128 H Random Glucose Lactic Acid Calcium Total Bilirubin AST ALT Alkaline Phosphatase Total Protein Albumin Lipase Urine Color Yellow Urine Clarity Clear Urine pH 5.5 Ur Specific [place] Greater/equal 1.030 Urine Protein 100 H Urine Glucose (UA) Negative Urine Ketones Trace H Urine Occult Blood Large H Urine Nitrate Negative Urine Bilirubin Negative Urine Urobilinogen 1.0 Ur Leukocyte Esterase Negative Urine RBC 51-189 H Urine WBC 0-5 Ur Squamous Epith Cells 0-5 Urine Bacteria Few H Urine Mucus Few H Micro UA Comment Culture not ind Ur Microscopic Review Microscopic reviewed Urine Culture Comments Culture not ind - Imaging Imaging: ITS Impressions Chest X-Ray 12/30/17 00:00 CONCLUSION: Small to moderate left pleural effusion with left basilar airspace disease. Right lung relatively clear. Abdomen/Pelvis CT 12/30/17 14:29 CONCLUSION: 1. Left lower lobe consolidation and left pleural effusion. 2. Ascites. 3. Atherosclerosis. 4. Severe diverticulosis. 5. Abnormal dilated loops of small intestine are identified with transition point in the central abdomen, imaging features characteristic of small bowel obstruction. Abdomen X-Ray 12/31/17 00:00 CONCLUSION: Findings suspicious for small bowel obstruction. CT scan is recommended if clinically indicated. Abdominal x-ray: image reviewed Assessment and Plan - Assessment (1) Small bowel obstruction Code(s): K56.609 - Unspecified intestinal obstruction, unspecified as to partial versus complete obstruction Status: Acute Plan: 87 year old male with abdominal pain; SBO -KUB continues to show dilated small bowel -Exam improved -Okay for some ice chips -SBFT today -Recommend inserting NGT if nausea/vomiting occur -Continue non operative treatment - Attending Attestation patient seen at bedside severe distension contrast not passing place ng transfer to [place] main surgical planning The exam, history, and the medical decision-making described in the above note were completed with the assistance of the mid-level provider. I reviewed and agree with the findings presented. I attest that I had a [id number] encounter with the patient on the same day, and personally performed and documented my assessment and findings in the medical record.
[2017-12-31] MEDS ORDERED: Diatrizoate Meglum/Diatrizoate Sod Liq 120 ML Bottle (for RAD diag) PO ONE (09:30)
[2017-12-31] MEDS: Insulin NovoLOG Aspart Correctional Sugar Inj SQ SCH ×5 (10:32→20:32)
[2017-12-31] MEDS: Sodium Chloride 0.9% 2 ML Flush BID IV.FLUSH SCH ×2 (10:33→20:33)
--- NOTE | 2017-12-31 11:25 | US ---
EXAM DATE: 12/31/2017 12:00 AM EDT AGE/SEX: 87 years / Male INDICATIONS: Abdominal pain. Ascites. CLINICAL DATA: This is the patient's initial encounter. Patient reports that signs and symptoms have been present for 1 day and indicates a pain score of 0/10. MEDICAL/SURGICAL HISTORY: Diabetes. Carcinoma, bladder. Hypertension. . Bladder repair surger y. COMPARISON: [facility], CT ABDOMEN & PELVIS W/O CONTRAST, 12/30/2017. . MEASUREMENTS: Liver:__ 17.8 cm. Common Bile Duct:__ 4mm. Right Kidney:__ 10.4 x 4.5 x 5.0 cm. FINDINGS: Liver: Increased echotexture without focal lesion or ductal dilation. Trace ascites with fluid primar catina in the right upper quadrant along the hepatic margin. Portal Vein: Hepatopedal flow seen in portal vein. Common Duct: No intraluminal mass or stone visualized. Gallbladder: Mildly distended with echogenic sludge. Borderline wall thickness measuring up to 3 mm. Pancreas: Not well visualized. Right Kidney: Increased echotexture. No mass or hydronephrosis. Other: Spleen is enlarged measuring up to 15.4 cm. Left pleural effusion. Dilated fluid-filled bowel loops in the lower abdomen. CONCLUSION: 1. Gallbladder sludge without definitive sonographic findings for acute cholecystitis. 2. Increased hepatic echogenicity and hepatosplenomegaly with trace ascites. 3. Redemonstration of dilated fluid-filled loops of small bowel in the lower abdomen similar to CT e xam. 4. Left pleural effusion. 5. Echogenic right kidney consistent with medical renal disease. Electronically signed by: Jonatan Farr MD 12/31/2017 11:23 AM EDT
--- NOTE | 2017-12-31 11:27 | P.PNIM ---
Subjective Interval history: f/u; small bowel obstruction in no acute distress. but uncomfortable with abdominal pain. has some nausea but with no emesis. no BM. d/w the RN at the bedside. Physical Exam Vital signs: Vital Signs 12/30/17 13:35 12/30/17 15:20 12/30/17 17:14 Temperature 97.8 F Pulse Rate 92 H 72 66 Respiratory Rate 16 18 18 Blood Pressure 181/83 H 200/77 H 208/75 H Pulse Oximetry 95 96 96 12/30/17 18:00 12/30/17 18:28 12/30/17 18:39 Temperature Pulse Rate 66 64 64 Respiratory Rate 33 H 33 H Blood Pressure 203/78 H 200/76 H Pulse Oximetry 92 L 90 L 12/30/17 18:42 12/30/17 19:00 12/30/17 20:00 Temperature Pulse Rate 66 64 58 L Respiratory Rate 30 H 31 H Blood Pressure 220/77 H Pulse Oximetry 93 L 12/30/17 20:17 12/30/17 22:00 12/30/17 22:17 Temperature 98 F Pulse Rate 62 60 Respiratory Rate 22 26 H Blood Pressure 185/64 H 200/67 H Pulse Oximetry 91 L 97 12/30/17 22:24 12/30/17 23:00 12/30/17 23:45 Temperature Pulse Rate 64 Respiratory Rate 57 H Blood Pressure 168/55 H Pulse Oximetry 97 96 12/31/17 00:00 12/31/17 02:24 12/31/17 04:00 Temperature 98 F Pulse Rate 70 78 64 Respiratory Rate 24 24 20 Blood Pressure 192/84 H Pulse Oximetry 95 12/31/17 04:21 12/31/17 05:00 12/31/17 06:00 Temperature 98 F Pulse Rate 62 60 70 Respiratory Rate 24 24 24 Blood Pressure 204/75 H 199/76 H 179/63 H Pulse Oximetry 12/31/17 08:00 Temperature Pulse Rate Respiratory Rate Blood Pressure Pulse Oximetry 92 L Intake & Output 12/30/17 12/31/17 12/31/17 18:59 06:59 18:59 Intake Total 1000 / 1000 Output Total 850 / 850 Balance 150 / 150 Weight 74 kg 68.9 kg Intake: IV 1000 / 1000 NS Inj 1,000 ML @ 84 mls/hr IV. 1000 / 1000 CONT .[id number] [facility] Rx#: [id number] Output: Urine 850 / 850 Other: # Voids 1 Date of Last Bowel Movement 12/28/17 Weight On Admission 63.7 kg - Constitutional no acute distress - Routine Respiratory Exam Present: CTA bilaterally - Routine Cardiovascular Exam Present: RRR - Routine Abdominal Exam Present: soft, tenderness (generalized tenderness.), distended - Routine Extremities Exam Comments: no pedal edema. - Routine Neurological Exam Present: alert, oriented X3 Results - Labs CBC & Chem 7: 12/30/17 14:47 12/30/17 14:47 Laboratory Results - last 24 hr 12/30/17 12/30/17 12/30/17 14:47 14:47 14:47 CBC w Diff Auto diff final WBC 8.9 RBC 5.51 Hgb 15.7 Hct 47.1 MCV 85.4 MCH 28.5 MCHC 33.4 RDW 13.1 Plt Count 205 MPV 7.2 Neut % (Auto) 79.7 H Lymph % (Auto) 10.4 Dolores % (Auto) 9.3 H Eos % (Auto) 0.2 Baso % (Auto) 0.4 Neut # (Auto) 7.2 Lymph # (Auto) 0.9 L Dolores # (Auto) 0.8 Eos # (Auto) 0.0 Baso # (Auto) 0.0 WBC Differential . Differential Comment . Sodium 140 Potassium 4.6 Chloride 103 Carbon Dioxide 30.6 Anion Gap 6 BUN 40 H Creatinine 2.00 H Estimated GFR 32 L POC Glucose Random Glucose 164 H Lactic Acid 1.7 Calcium 8.8 Total Bilirubin 1.0 AST 16 ALT 12 Alkaline Phosphatase 73 Total Protein 6.9 Albumin 2.9 L Lipase 89 Urine Color Urine Clarity Urine pH Ur Specific [place] Urine Protein Urine Glucose (UA) Urine Ketones Urine Occult Blood Urine Nitrate Urine Bilirubin Urine Urobilinogen Ur Leukocyte Esterase Urine RBC Urine WBC Ur Squamous Epith Cells Urine Bacteria Urine Mucus Micro UA Comment Ur Microscopic Review Urine Culture Comments 12/30/17 12/30/17 12/30/17 16:00 18:16 21:51 CBC w Diff WBC RBC Hgb Hct MCV MCH MCHC RDW Plt Count MPV Neut % (Auto) Lymph % (Auto) Dolores % (Auto) Eos % (Auto) Baso % (Auto) Neut # (Auto) Lymph # (Auto) Dolores # (Auto) Eos # (Auto) Baso # (Auto) WBC Differential Differential Comment Sodium Potassium Chloride Carbon Dioxide Anion Gap BUN Creatinine Estimated GFR POC Glucose 137 H 128 H Random Glucose Lactic Acid Calcium Total Bilirubin AST ALT Alkaline Phosphatase Total Protein Albumin Lipase Urine Color Yellow Urine Clarity Clear Urine pH 5.5 Ur Specific [place] Greater/equal 1.030 Urine Protein 100 H Urine Glucose (UA) Negative Urine Ketones Trace H Urine Occult Blood Large H Urine Nitrate Negative Urine Bilirubin Negative Urine Urobilinogen 1.0 Ur Leukocyte Esterase Negative Urine RBC 51-189 H Urine WBC 0-5 Ur Squamous Epith Cells 0-5 Urine Bacteria Few H Urine Mucus Few H Micro UA Comment Culture not ind Ur Microscopic Review Microscopic reviewed Urine Culture Comments Culture not ind 12/31/17 08:09 CBC w Diff WBC RBC Hgb Hct MCV MCH MCHC RDW Plt Count MPV Neut % (Auto) Lymph % (Auto) Dolores % (Auto) Eos % (Auto) Baso % (Auto) Neut # (Auto) Lymph # (Auto) Dolores # (Auto) Eos # (Auto) Baso # (Auto) WBC Differential Differential Comment Sodium Potassium Chloride Carbon Dioxide Anion Gap BUN Creatinine Estimated GFR POC Glucose 141 H Random Glucose Lactic Acid Calcium Total Bilirubin AST ALT Alkaline Phosphatase Total Protein Albumin Lipase Urine Color Urine Clarity Urine pH Ur Specific [place] Urine Protein Urine Glucose (UA) Urine Ketones Urine Occult Blood Urine Nitrate Urine Bilirubin Urine Urobilinogen Ur Leukocyte Esterase Urine RBC Urine WBC Ur Squamous Epith Cells Urine Bacteria Urine Mucus Micro UA Comment Ur Microscopic Review Urine Culture Comments - Imaging Impressions Chest X-Ray 12/30/17 00:00 CONCLUSION: Small to moderate left pleural effusion with left basilar airspace disease. Right lung relatively clear. Abdomen/Pelvis CT 12/30/17 14:29 CONCLUSION: 1. Left lower lobe consolidation and left pleural effusion. 2. Ascites. 3. Atherosclerosis. 4. Severe diverticulosis. 5. Abnormal dilated loops of small intestine are identified with transition point in the central abdomen, imaging features characteristic of small bowel obstruction. Abdomen X-Ray 12/31/17 00:00 CONCLUSION: Findings suspicious for small bowel obstruction. CT scan is recommended if clinically indicated. Assessment and Plan - Plan A/P - small bowel obstruction keep NPO for now and continue with supportive care with IV fluid, pain control and antiemetics- general surgery consulted- conservative treatment at this point. -diabetes mellitus; start on accu-check with SSI -hypertension- IV Vasotec prn for now- continue to monitor and adjust the regimen as needed. -renal insufficiency with unknown duration- continue with IV fluid and monitor the renal function. -Ascites; abdominal sonogram pending. -possible LLL pneumonia with pleural effusion- start on antibiotic and neb treatment as needed. -history of bladder cancer. -DVT prophylaxis with SCD's Discharge Planning: not ready for discharge.
[2017-12-31] MEDS: Morphine Sulfate Inj 2 MG/ML Vial IV.PUSH PRN (11:28)
[2017-12-31] MEDS ORDERED: Levofloxacin 500 mg Premix Inj 500 MG/100 ML PIGGYBACK IV.SIG SCH (12:00)
[2017-12-31] MEDS: hydrALAZINE HCl Inj 20 MG/ML Vial IV.PUSH PRN ×2 (13:25→23:45)
[2017-12-31 13:38] LABS: Calcium 8.9 mg/dL (8.5-10.1)
[2017-12-31 13:39] LABS: Carbon Dioxide 30.5 meq/L (21.0-32.0)
[2017-12-31] MEDS: Morphine Inj 4 MG/ML Vial IV.PUSH PRN ×2 (14:12→18:13)
--- NOTE | 2017-12-31 14:37 | FL ---
EXAM DATE: 12/31/2017 12:00 AM EDT AGE/SEX: 87 years / Male INDICATIONS: Small bowel obstruction, nausea, vomiting, abdominal pain. CLINICAL DATA: This is the patient's subsequent encounter. Patient reports that signs and symptoms h ave been present for 2 days and indicates a pain score of 10/10. MEDICAL/SURGICAL HISTORY: Diabetes. Hypertension. Carcinoma, bladder. . Bladder repair sx. COMPARISON: [facility], ABDOMEN 1V KUB, 12/31/2017. . FLUORO TIME: 0 IMAGE COUNT: 18 CONTRAST: Gastrografin FINDINGS: Preliminary film shows grossly dilated loops of gas-filled small bowel throughout the abdomen. No angel ss pneumoperitoneum.. The patient had a very difficult time ingesting the Gastrografin. He was only able to ingest a small volume. The stomach is grossly unremarkable. Examination of the small bowel demonstrate a normal caliber duodenum. The jejunum and ileum are gross ly dilated. Despite delayed imaging out to 3 1/2 hours there is limited opacification of the dilated loops. The delusional affect the Gastrografin limits the opacification of these loops that do contain Gastrografin. No focal transition point is able to be identified. CONCLUSION: Findings consistent with distal small bowel obstruction. There is very limited opacification of the b owel loops due to the obstruction. No focal transition point is able to be identified. Electronically signed by: Bradly Rascon MD 12/31/2017 2:36 PM EDT
--- NOTE | 2017-12-31 18:48 | XR ---
EXAM DATE: 12/31/2017 5:43 PM EDT AGE/SEX: 87 years / Male INDICATIONS: Post NG tube placement. CLINICAL DATA: This is the patient's subsequent encounter. Patient reports that signs and symptoms h ave been present for 1 day and indicates a pain score of 5/10. MEDICAL/SURGICAL HISTORY: . Diabetes. Hypertension. Carcinoma, bladder. . Bladder repair sx. COMPARISON: [facility], SMALL BOWEL W GASTROGRAFIN, 12/31/2017. . FINDINGS: There is diffuse gaseous distention of small bowel which is similar to exam performed earlier today. There is some residual contrast present. NG tip is in the distal stomach. CONCLUSION: Persistent diffuse gaseous distention of small bowel similar to the earlier examination. Small left e ffusion. Electronically signed by: Reinaldo Morrison MD 12/31/2017 6:47 PM EDT
--- NOTE | 2017-12-31 20:34 | ECG ---
Date Performed: 12/30/2017 Time Performed: 14:39:33 PTAGE: 87 years EKG: Sinus rhythm RIGHT BUNDLE BRANCH BLOCK ABNORMAL ECG PREVIOUS TRACING : 08/31/2017 08.03 Since the previous tracing, no significant change noted DOCTOR: Rosas Dey Interpretating Date/Time 12/31/2017 20:33:25
[2018-01-01 04:57] LABS: Potassium 4.4 meq/L (3.5-5.1)
[2018-01-01 04:58] LABS: INR 1.1 Ratio; Prothrombin Time 10.9 sec (9.8-11.6)
[2018-01-01 04:59] LABS: Calcium 8.5 mg/dL (8.5-10.1)
--- NOTE | 2018-01-01 06:13 | XR ---
EXAM DATE: 01/01/2018 6:00 AM EDT AGE/SEX: 87 years / Male INDICATIONS: Abdomen distention. Follow up small bowel obstruction. CLINICAL DATA: This is the patient's subsequent encounter. Patient reports that signs and symptoms h ave been present for 2 days and indicates a pain score of 0/10. MEDICAL/SURGICAL HISTORY: . Diabetes. Hypertension. Carcinoma, bladder. . Bladder repair sx. COMPARISON: [facility], ABDOMEN 1V KUB, 12/31/2017. . FINDINGS: There is dilatation of the small bowel in the upper and mid abdomen. The colon is not distended. Pelon e air is not seen. There is increased density at the left base with silhouetting the left hemidiaphra gm. CONCLUSION: Dilated small bowel concerning for some degree of obstruction. Electronically signed by: Bobby Munguia MD 01/01/2018 6:11 AM EDT
[2018-01-01] MEDS: Sod Chloride 0.9% Inj 1,000 ML IV.CONT SCH ×3 (06:48→17:33)
[2018-01-01] MEDS: Insulin NovoLOG Aspart Correctional Sugar Inj SQ SCH ×4 (08:16→22:06)
[2018-01-01] MEDS: hydrALAZINE HCl Inj 20 MG/ML Vial IV.PUSH PRN ×2 (08:17→19:30)
--- NOTE | 2018-01-01 08:28 | P.PNGS ---
Subjective Patient reports: pain is less (ng placed 2500 out from tube, no flatus) Physical Exam Vital signs: Vital Signs 12/31/17 11:15 12/31/17 11:57 12/31/17 12:00 Temperature 97.6 F Pulse Rate 92 H 84 Respiratory Rate 25 H 25 H 17 Blood Pressure 211/92 H 229/141 H Pulse Oximetry 95 12/31/17 12:29 12/31/17 13:20 12/31/17 13:22 Temperature Pulse Rate 84 98 H 96 H Respiratory Rate 20 36 H 41 H Blood Pressure 206/90 H 198/88 H 198/88 H Pulse Oximetry 12/31/17 13:45 12/31/17 14:00 12/31/17 14:01 Temperature Pulse Rate 102 H 102 H 104 H Respiratory Rate 32 H 44 H Blood Pressure 205/92 H Pulse Oximetry 12/31/17 14:48 12/31/17 15:00 12/31/17 16:00 Temperature 98.2 F Pulse Rate 92 H 90 Respiratory Rate 26 H 32 H 34 H Blood Pressure 181/78 H 207/84 H Pulse Oximetry 12/31/17 17:29 12/31/17 18:00 12/31/17 19:20 Temperature Pulse Rate 94 H 86 Respiratory Rate 31 H 34 H Blood Pressure 179/84 H 186/78 H Pulse Oximetry 92 L 12/31/17 20:00 12/31/17 23:44 01/01/18 00:12 Temperature 97.6 F Pulse Rate 80 72 72 Respiratory Rate 22 24 24 Blood Pressure 159/61 H 217/81 H 151/48 H Pulse Oximetry 92 L 92 L 01/01/18 04:00 Temperature 97.7 F Pulse Rate 68 Respiratory Rate 24 Blood Pressure 180/58 H Pulse Oximetry Intake & Output 12/31/17 01/01/18 01/01/18 18:59 06:59 18:59 Intake Total 1100 / 1100 1000 / 1000 Output Total 1450 / 1450 1700 / 1700 Balance -350 / -350 -700 / -700 Weight 67.9 kg Intake: IV 1100 / 1100 1000 / 1000 NS Inj 1,000 ML @ 84 mls/hr IV. 1000 / 1000 1000 / 1000 CONT .[id number] [facility] Rx#: [id number] Levaquin 500 mg Premix Inj 500 100 / 100 mg In 100 ml @ 100 mls/hr IV. SIG Q24H [facility] Rx#:[id number] Output: Urine 300 / 300 200 / 200 Emesis 150 / 150 Gastric Drainage 1000 / 1000 1500 / 1500 Right Nare Nasogastric Tube 1000 / 1000 1500 / 1500 Other: # Incontinent Voids 1 # Bowel Movements 0 - Routine HEENT Exam Head: Present: normocephalic - Routine Respiratory Exam Present: CTA bilaterally - Routine Cardiovascular Exam Present: RRR - Routine Abdominal Exam Present: soft, distended Results - Labs 12/30/17 14:47 01/01/18 04:05 Laboratory Results - last 24 hr 12/31/17 12/31/17 12/31/17 11:52 13:20 17:36 PT INR Sodium 144 Potassium 4.0 Chloride 106 Carbon Dioxide 30.5 Anion Gap 8 BUN 38 H Creatinine 1.70 H Estimated GFR 38 L POC Glucose 163 H 173 H Random Glucose 191 H Calcium 8.9 12/31/17 01/01/18 01/01/18 20:32 04:05 04:05 PT 10.9 INR 1.1 Sodium 148 H Potassium 4.4 Chloride 108 H Carbon Dioxide 32.0 Anion Gap 8 BUN 43 H Creatinine 1.60 H Estimated GFR 41 L POC Glucose 155 H Random Glucose 138 H Calcium 8.5 - Imaging Imaging: ITS Impressions Chest X-Ray 12/30/17 00:00 CONCLUSION: Small to moderate left pleural effusion with left basilar airspace disease. Right lung relatively clear. Abdomen/Pelvis CT 12/30/17 14:29 CONCLUSION: 1. Left lower lobe consolidation and left pleural effusion. 2. Ascites. 3. Atherosclerosis. 4. Severe diverticulosis. 5. Abnormal dilated loops of small intestine are identified with transition point in the central abdomen, imaging features characteristic of small bowel obstruction. Liver Ultrasound 12/31/17 00:00 CONCLUSION: 1. Gallbladder sludge without definitive sonographic findings for acute cholecystitis. 2. Increased hepatic echogenicity and hepatosplenomegaly with trace ascites. 3. Redemonstration of dilated fluid-filled loops of small bowel in the lower abdomen similar to CT exam. 4. Left pleural effusion. 5. Echogenic right kidney consistent with medical renal disease. Small Bowel X-Ray 12/31/17 00:00 CONCLUSION: Findings consistent with distal small bowel obstruction. There is very limited opacification of the bowel loops due to the obstruction. No focal transition point is able to be identified. Abdomen X-Ray 01/01/18 06:00 CONCLUSION: Dilated small bowel concerning for some degree of obstruction. Assessment and Plan - Assessment (1) Small bowel obstruction Code(s): K56.609 - Unspecified intestinal obstruction, unspecified as to partial versus complete obstruction Status: Acute Plan: 87 year old male with abdominal pain; SBO0- persistent obstruction -KUB continues to show dilated small bowel -Exam similar to yesterday -transfer to main - plan for dx lap LUPE,possible bowel resection
[2018-01-01] MEDS: Sodium Chloride 0.9% 2 ML Flush BID IV.FLUSH SCH ×2 (10:18→20:03)
--- NOTE | 2018-01-01 10:30 | P.PNIM ---
Subjective Interval history: f/u ; small bowel obstruction in no acute distress. NG tube in place. abdominal pain is better. no nausea. still with no BM/ and abdominal distention. daughter at the bedside. d/w the RN. Physical Exam Vital signs: Vital Signs 12/31/17 11:15 12/31/17 11:57 12/31/17 12:00 Temperature 97.6 F Pulse Rate 92 H 84 Respiratory Rate 25 H 25 H 17 Blood Pressure 211/92 H 229/141 H Pulse Oximetry 95 12/31/17 12:29 12/31/17 13:20 12/31/17 13:22 Temperature Pulse Rate 84 98 H 96 H Respiratory Rate 20 36 H 41 H Blood Pressure 206/90 H 198/88 H 198/88 H Pulse Oximetry 12/31/17 13:45 12/31/17 14:00 12/31/17 14:01 Temperature Pulse Rate 102 H 102 H 104 H Respiratory Rate 32 H 44 H Blood Pressure 205/92 H Pulse Oximetry 12/31/17 14:48 12/31/17 15:00 12/31/17 16:00 Temperature 98.2 F Pulse Rate 92 H 90 Respiratory Rate 26 H 32 H 34 H Blood Pressure 181/78 H 207/84 H Pulse Oximetry 12/31/17 17:29 12/31/17 18:00 12/31/17 19:20 Temperature Pulse Rate 94 H 86 Respiratory Rate 31 H 34 H Blood Pressure 179/84 H 186/78 H Pulse Oximetry 92 L 12/31/17 20:00 12/31/17 23:44 01/01/18 00:12 Temperature 97.6 F Pulse Rate 80 72 72 Respiratory Rate 22 24 24 Blood Pressure 159/61 H 217/81 H 151/48 H Pulse Oximetry 92 L 92 L 01/01/18 04:00 01/01/18 07:47 01/01/18 08:00 Temperature 97.7 F Pulse Rate 68 76 72 Respiratory Rate 24 33 H 26 H Blood Pressure 180/58 H 224/69 H 215/73 H Pulse Oximetry 92 L 01/01/18 10:00 Temperature Pulse Rate 80 Respiratory Rate 36 H Blood Pressure 204/71 H Pulse Oximetry Intake & Output 12/31/17 01/01/18 01/01/18 18:59 06:59 18:59 Intake Total 1100 / 1100 1000 / 1000 Output Total 1450 / 1450 1700 / 1700 Balance -350 / -350 -700 / -700 Weight 67.9 kg Intake: IV 1100 / 1100 1000 / 1000 NS Inj 1,000 ML @ 84 mls/hr IV. 1000 / 1000 1000 / 1000 CONT .[id number] [facility] Rx#: [id number] Levaquin 500 mg Premix Inj 500 100 / 100 mg In 100 ml @ 100 mls/hr IV. SIG Q24H [facility] Rx#:[id number] Output: Urine 300 / 300 200 / 200 Emesis 150 / 150 Gastric Drainage 1000 / 1000 1500 / 1500 Right Nare Nasogastric Tube 1000 / 1000 1500 / 1500 Other: # Incontinent Voids 1 # Bowel Movements 0 - Constitutional no acute distress - Routine Respiratory Exam Present: CTA bilaterally - Routine Cardiovascular Exam Present: RRR - Routine Abdominal Exam Present: soft, distended - Routine Extremities Exam Comments: no pedal edema. - Routine Neurological Exam Present: alert, oriented X3 Results - Labs CBC & Chem 7: 12/30/17 14:47 01/01/18 04:05 Laboratory Results - last 24 hr 12/31/17 12/31/17 12/31/17 11:52 13:20 17:36 PT INR Sodium 144 Potassium 4.0 Chloride 106 Carbon Dioxide 30.5 Anion Gap 8 BUN 38 H Creatinine 1.70 H Estimated GFR 38 L POC Glucose 163 H 173 H Random Glucose 191 H Calcium 8.9 12/31/17 01/01/18 01/01/18 20:32 04:05 04:05 PT 10.9 INR 1.1 Sodium 148 H Potassium 4.4 Chloride 108 H Carbon Dioxide 32.0 Anion Gap 8 BUN 43 H Creatinine 1.60 H Estimated GFR 41 L POC Glucose 155 H Random Glucose 138 H Calcium 8.5 01/01/18 08:16 PT INR Sodium Potassium Chloride Carbon Dioxide Anion Gap BUN Creatinine Estimated GFR POC Glucose 133 H Random Glucose Calcium - Imaging Impressions Liver Ultrasound 12/31/17 00:00 CONCLUSION: 1. Gallbladder sludge without definitive sonographic findings for acute cholecystitis. 2. Increased hepatic echogenicity and hepatosplenomegaly with trace ascites. 3. Redemonstration of dilated fluid-filled loops of small bowel in the lower abdomen similar to CT exam. 4. Left pleural effusion. 5. Echogenic right kidney consistent with medical renal disease. Small Bowel X-Ray 12/31/17 00:00 CONCLUSION: Findings consistent with distal small bowel obstruction. There is very limited opacification of the bowel loops due to the obstruction. No focal transition point is able to be identified. Abdomen X-Ray 12/31/17 17:43 CONCLUSION: Persistent diffuse gaseous distention of small bowel similar to the earlier examination. Small left effusion. Abdomen X-Ray 01/01/18 06:00 CONCLUSION: Dilated small bowel concerning for some degree of obstruction. Assessment and Plan - Plan A/P - small bowel obstruction keep NPO for now and continue with supportive care with IV fluid, pain control and antiemetics- NG tube in place. general surgery consulted- d/w today and the plan for OR- possible bowel resection. -diabetes mellitus; started on accu-check with SSI -hypertension- IV Vasotec/Hydralazine prn for now- continue to monitor and adjust the regimen as needed. -renal insufficiency with unknown duration- continue with IV fluid and monitor the renal function. -Ascites; abdominal sonogram with trace ascites. -possible LLL pneumonia with pleural effusion- started on antibiotic and neb treatment as needed. -history of bladder cancer. -DVT prophylaxis with SCD's Discussed Condition With: the patient and his daughter- RN and . Discharge Planning: for transfer to [facility] for surgical intervention.
[2018-01-01] MEDS ORDERED: hydrALAZINE HCl Inj 20 MG/ML Vial IV.PUSH ONE ×2 (10:45→21:03)
[2018-01-01] MEDS: Levofloxacin 250 mg Premix Inj 250 MG/50 ML PIGGYBACK IV.SIG SCH (13:13)
[2018-01-01] MEDS ORDERED: Bupivacaine/Epinephrine Inj 0.25% 50 ML Vial ONE (14:52)
[2018-01-01] MEDS ORDERED: Succinylcholine Inj 100 MG/5 ML Syringe IV.PUSH ONE (15:29)
[2018-01-01] MEDS ORDERED: Lidocaine PF 1% Inj 5 ML Syringe OTHER ONE (15:29)
[2018-01-01] MEDS ORDERED: Phenylephrine/NS 1000 MCG/10ML Syringe IV.PUSH ONE (15:29)
[2018-01-01] MEDS ORDERED: Normosol-R pH 7.4 Inj 1,000 ML IV.CONT ONE (15:29)
--- NOTE | 2018-01-01 15:51 | P.OP ---
- Preoperative Diagnosis (1) Small bowel obstruction - Postoperative Diagnosis (1) Small bowel obstruction Date of procedure: 01/01/18 Procedure: dx lap, lap ruthy Anesthesia: GETA Surgeon: Niranjan Yuen MD Tourniquet time (min): 5 Pathology: none sent Operation and Findings: dilated small bowel, bowel obstruction
[2018-01-01] MEDS ORDERED: Sugammadex Inj 200 MG/2 ML Vial IV.PUSH ONE (16:31)
[2018-01-01] MEDS ORDERED: *Labetalol HCl Inj 100 MG/20 ML Vial PERIprocedural Use ONLY IV.PUSH ONE (17:04)
[2018-01-01] MEDS ORDERED: *Enalaprilat Inj 1.25 MG/ML Vial IV.PUSH ONE (17:12)
[2018-01-01] MEDS ORDERED: *morphine SULFATE 4 MG/ML PERIprocedure ONLY ONE ×2 (17:28→17:48)
--- NOTE | 2018-01-01 18:52 | MP ---
cc: Niranjan Yuen MD DATE OF OPERATION: 01/01/2018 PREOPERATIVE DIAGNOSIS: Bowel obstruction. POSTOPERATIVE DIAGNOSES: Bowel obstruction, adhesions. PROCEDURE PERFORMED: 1. Diagnostic laparoscopy. 2. Laparoscopic lysis of adhesions. SURGEON: Niranjan Yuen MD SENIOR ANALYTIC CONSULTANT: Radha ANESTHESIA: GETA. INTRAVENOUS FLUIDS: Per anesthesia. ESTIMATED BLOOD LOSS: 5 mL. DRAINS: None. COMPLICATIONS: None. WOUND CLASSIFICATION: Clean. SPECIMENS: None. FINDINGS: Adhesive omental band crossing the distal portion of small bowel with decompressed loops of distal small bowel and dilated proximal bowel. INDICATIONS FOR PROCEDURE: The patient is an 87-year-old male who presents with an acute onset of abdominal pain, nausea and vomiting. He had CT scan findings with a concern for a small-bowel obstruction. An NG tube was placed with 2.5 liters output. The patient did not improve after a small bowel series. A decision was made for operative intervention including a diagnostic laparoscopy. DETAILS OF PROCEDURE: The patient was taken to the operating suite, placed in supine position and he was prepped and draped in the usual sterile fashion after induction of general endotracheal anesthesia. A brief timeout was done, stating correct patient, procedure and surgical site. We were all in agreement with this. Attention was first directed to the left upper quadrant where a small stab ariana incision was made after injection of local anesthetic. The 5 mm Optiview Visiport was done to enter the abdomen safely. The abdomen was insufflated to 15 mm pneumoperitoneum. On cursory inspection, no evidence of injury. There was noted to be very severely dilated small bowel loops with hyperemia without evidence of necrosis. Three other ports were placed with 1 in the left lower quadrant, 1 in the left mid quadrant and 1 in the umbilicus. The terminal ileum was identified and the ileum was grasped and noted to be completely decompressed. It was locked proximally until a point of obstruction was noted. There was an adhesive band that was noted to be across the small bowel causing an acute obstruction and significant proximal dilation. A small little necrosis of mesenteric fat was also noted too. Harmonic scalpel was used to transect the adhesive band. After doing this, the rest of the bowel was run to the ligament of Treitz. This was done very gently as, again, the bowel was noted to be very dilated and somewhat hyperemic. No evidence of further mass, lesion or issue. The patient was then placed back flat and the pneumoperitoneum was removed. The ports were removed. The patient tolerated the procedure well. The ports were closed with 4-0 Monocryl and sterile dressings including Mastisol and Steri-Strips were placed. No intraoperative complications. All lap and instrument counts were correct at the end of procedure. The patient was extubated and taken stable to the PACU. MD GIOVANY Marcos/tammie , 05:09 PM , 05:18 PM
[2018-01-01] MEDS: Morphine Inj 4 MG/ML Vial IV.PUSH PRN ×2 (20:38→23:17)
[2018-01-02] MEDS: Morphine Inj 4 MG/ML Vial IV.PUSH PRN (02:05)
[2018-01-02] MEDS ORDERED: hydrALAZINE HCl Inj 20 MG/ML Vial IV.PUSH ONE (02:42)
[2018-01-02] MEDS: Sod Chloride 0.9% Inj 1,000 ML IV.CONT SCH ×2 (04:56→17:21)
[2018-01-02 05:09] LABS: Baso % (Auto) 0.1 % (0.0-2.0); Eos % (Auto) 0.1 % (0.0-4.0); Hemoglobin 14.6 gm/dL (13.0-17.0); Lymph # (Auto) 0.8 th/mm3 (1.0-4.8); Lymph % (Auto) 13.1 % (9.0-44.0); Mean Corpuscular HGB Conc 33.2 % (32.0-36.0); Mean Corpuscular Hemoglobin 28.5 pg (27.0-34.0); Mean Platelet Volume 7.8 fL (7.0-11.0); Mono # (Auto) 0.6 th/mm3 (0.0-0.9); Mono % (Auto) 9.6 % (0.0-8.0); Neut # (Auto) 4.6 th/mm3 (1.8-7.7); Neut % (Auto) 77.1 % (16.0-70.0); Platelet Count 169 th/mm3 (150-450); Red Blood Count 5.12 mil/mm3 (4.50-5.90); Red Cell Distribution Width 14.4 % (11.6-17.2)
[2018-01-02 05:32] LABS: Albumin 2.6 g/dL (3.4-5.0); Anion Gap 8 meq/L (5-15); Aspartate Aminotransferase 13 U/L (15-37); Blood Urea Nitrogen 44 mg/dL (7-18); Calcium 8.2 mg/dL (8.5-10.1); Carbon Dioxide 33.8 meq/L (21.0-32.0); Chloride 111 meq/L (98-107); Glomerular Filtration Rate 48 mL/min (>89); Glucose,Random 125 mg/dL (74-106); Potassium 3.8 meq/L (3.5-5.1); Sodium 153 meq/L (136-145)
[2018-01-02 05:33] LABS: Alanine Aminotransferase 9 U/L (12-78)
[2018-01-02 05:35] LABS: Alkaline Phosphatase 62 U/L (45-117); Total Protein 6.2 g/dL (6.4-8.2)
[2018-01-02] MEDS: Insulin NovoLOG Aspart Correctional Sugar Inj SQ SCH ×4 (09:04→20:15)
[2018-01-02] MEDS: Sodium Chloride 0.9% 2 ML Flush BID IV.FLUSH SCH ×2 (09:06→20:15)
--- NOTE | 2018-01-02 09:22 | P.PNGS ---
Subjective Patient reports: feels better (HTN this), flatus Physical Exam Vital signs: Vital Signs 01/01/18 10:00 01/01/18 12:00 01/01/18 13:00 Temperature 97.6 F Pulse Rate 80 82 84 Respiratory Rate 36 H 31 H 32 H Blood Pressure 204/71 H 196/65 H 196/65 H Pulse Oximetry 91 L 01/01/18 14:59 01/01/18 15:28 01/01/18 16:47 Temperature 98.3 F 98.3 F 96.3 F L Pulse Rate 80 80 81 Respiratory Rate 18 18 24 Blood Pressure 214/90 H 214/90 H Pulse Oximetry 92 L 92 L 100 01/01/18 16:48 01/01/18 16:49 01/01/18 16:50 Temperature Pulse Rate 77 77 81 Respiratory Rate 12 15 21 Blood Pressure 201/81 H 183/123 H 209/82 H Pulse Oximetry 100 99 99 01/01/18 16:55 01/01/18 17:00 01/01/18 17:10 Temperature Pulse Rate 79 78 67 Respiratory Rate 22 18 Blood Pressure 187/75 H 209/84 H 202/81 H Pulse Oximetry 94 L 99 96 01/01/18 17:15 01/01/18 17:20 01/01/18 17:30 Temperature Pulse Rate 66 66 68 Respiratory Rate 24 20 18 Blood Pressure 200/83 H 196/84 H Pulse Oximetry 96 98 97 01/01/18 17:40 01/01/18 17:45 01/01/18 17:50 Temperature Pulse Rate 70 72 61 Respiratory Rate 22 28 H 26 H Blood Pressure 179/77 H 201/85 H Pulse Oximetry 96 96 96 01/01/18 17:59 01/01/18 18:00 01/01/18 18:10 Temperature 97.6 F Pulse Rate 63 63 64 Respiratory Rate 22 22 18 Blood Pressure 172/73 H Pulse Oximetry 96 96 96 01/01/18 18:19 01/01/18 18:27 01/01/18 18:28 Temperature Pulse Rate 65 Respiratory Rate Blood Pressure 182/76 H 194/79 H Pulse Oximetry 96 01/01/18 18:30 01/01/18 19:00 01/01/18 20:00 Temperature 98.2 F 98.6 F Pulse Rate 68 70 74 Respiratory Rate 29 H 33 H Blood Pressure 180/77 H 175/77 H Pulse Oximetry 93 L 96 01/01/18 23:29 01/02/18 00:00 01/02/18 04:00 Temperature 98.9 F 98.7 F Pulse Rate 69 79 Respiratory Rate 24 19 Blood Pressure 194/77 H 177/94 H Pulse Oximetry 96 91 L 96 01/02/18 08:00 01/02/18 08:17 Temperature 96.6 F L Pulse Rate 75 Respiratory Rate 21 Blood Pressure 210/84 H Pulse Oximetry 93 L 94 L Intake & Output 01/01/18 01/02/18 01/02/18 18:59 06:59 18:59 Intake Total 2365 / 2365 Output Total 1735 / 1735 1390 / 1390 Balance 630 / 630 -1390 / -1390 Weight 71.2 kg Intake: IV 765 / 765 NS Inj 1,000 ML @ 84 mls/hr IV. 715 / 715 CONT .[id number] [facility] Rx#: [id number] Levaquin 250 mg Premix Inj 250 50 / 50 mg In 50 ml @ 100 mls/hr IV.SIG Q24H [facility] Rx#:[id number] Anesthesia Amount 1600 / 1600 Output: Urine 650 / 650 Estimated Blood Loss 5 / 5 5 / 5 Urine Amount (Catheter) 80 / 80 585 / 585 Indwelling Urethral Catheter 80 / 80 585 / 585 Gastric Drainage 1000 / 1000 800 / 800 Right Nare Nasogastric Tube 1000 / 1000 800 / 800 Other: Date of Last Bowel Movement 12/28/17 12/28/17 # Bowel Movements 0 - Routine Respiratory Exam Present: CTA bilaterally - Routine Cardiovascular Exam Present: RRR - Routine Abdominal Exam Present: soft (mild distension, incisional tenderness) - Urinary Catheter Management Indwelling Urethral Catheter Cath placed during this visit: yes Reason for continuing: Hourly intake/output Insertion date: 01/01/18 Results - Labs 01/02/18 02:39 01/02/18 02:39 Laboratory Results - last 24 hr 01/01/18 01/01/18 01/01/18 12:07 12:38 17:25 WBC RBC Hgb Hct MCV MCH MCHC RDW Plt Count MPV Neut % (Auto) Lymph % (Auto) [place] % (Auto) Eos % (Auto) Baso % (Auto) Neut # (Auto) Lymph # (Auto) [place] # (Auto) Eos # (Auto) Baso # (Auto) WBC Differential Differential Comment Sodium Potassium Chloride Carbon Dioxide Anion Gap BUN Creatinine Estimated GFR POC Glucose 139 H 133 H Random Glucose Calcium Total Bilirubin AST ALT Alkaline Phosphatase Total Protein Albumin Nasal Screen MRSA (PCR) Not detected 01/01/18 01/02/18 01/02/18 22:00 02:39 02:39 WBC 6.0 RBC 5.12 Hgb 14.6 Hct 44.0 MCV 86.0 MCH 28.5 MCHC 33.2 RDW 14.4 Plt Count 169 MPV 7.8 Neut % (Auto) 77.1 H Lymph % (Auto) 13.1 [place] % (Auto) 9.6 H Eos % (Auto) 0.1 Baso % (Auto) 0.1 Neut # (Auto) 4.6 Lymph # (Auto) 0.8 L [place] # (Auto) 0.6 Eos # (Auto) 0.0 Baso # (Auto) 0.0 WBC Differential . Differential Comment Auto diff final Sodium 153 H Potassium 3.8 Chloride 111 H Carbon Dioxide 33.8 H Anion Gap 8 BUN 44 H Creatinine 1.41 H Estimated GFR 48 L POC Glucose 159 H Random Glucose 125 H Calcium 8.2 L Total Bilirubin 0.6 AST 13 L ALT 9 L Alkaline Phosphatase 62 Total Protein 6.2 L D Albumin 2.6 L Nasal Screen MRSA (PCR) 01/02/18 08:17 WBC RBC Hgb Hct MCV MCH MCHC RDW Plt Count MPV Neut % (Auto) Lymph % (Auto) [place] % (Auto) Eos % (Auto) Baso % (Auto) Neut # (Auto) Lymph # (Auto) [place] # (Auto) Eos # (Auto) Baso # (Auto) WBC Differential Differential Comment Sodium Potassium Chloride Carbon Dioxide Anion Gap BUN Creatinine Estimated GFR POC Glucose 129 H Random Glucose Calcium Total Bilirubin AST ALT Alkaline Phosphatase Total Protein Albumin Nasal Screen MRSA (PCR) - Imaging Imaging: ITS Impressions Chest X-Ray 12/30/17 00:00 CONCLUSION: Small to moderate left pleural effusion with left basilar airspace disease. Right lung relatively clear. Abdomen/Pelvis CT 12/30/17 14:29 CONCLUSION: 1. Left lower lobe consolidation and left pleural effusion. 2. Ascites. 3. Atherosclerosis. 4. Severe diverticulosis. 5. Abnormal dilated loops of small intestine are identified with transition point in the central abdomen, imaging features characteristic of small bowel obstruction. Liver Ultrasound 12/31/17 00:00 CONCLUSION: 1. Gallbladder sludge without definitive sonographic findings for acute cholecystitis. 2. Increased hepatic echogenicity and hepatosplenomegaly with trace ascites. 3. Redemonstration of dilated fluid-filled loops of small bowel in the lower abdomen similar to CT exam. 4. Left pleural effusion. 5. Echogenic right kidney consistent with medical renal disease. Small Bowel X-Ray 12/31/17 00:00 CONCLUSION: Findings consistent with distal small bowel obstruction. There is very limited opacification of the bowel loops due to the obstruction. No focal transition point is able to be identified. Abdomen X-Ray 01/01/18 06:00 CONCLUSION: Dilated small bowel concerning for some degree of obstruction. Assessment and Plan - Assessment (1) Small bowel obstruction Code(s): K56.609 - Unspecified intestinal obstruction, unspecified as to partial versus complete obstruction Status: Acute Plan: 87 year old male with abdominal pain; SBO0- POD 1 Dx lap lap ruthy+bowel sounds and flatus -dc ng - npo execpt ice chips and sips and po meds - encourage ambulation - lovenox tomorrow - IS - defer to medicine for aggressive bp control - keep in icu
[2018-01-02] MEDS: niCARdipine Inj 25 MG in Sodium Chlor 0.9% Inj 240 ML IV.CONT PRN ×6 (09:58→23:29)
--- NOTE | 2018-01-02 11:49 | P.PN ---
Subjective Interval history: Follow-up small bowel obstruction status post ex lap with LUPE/benign labile hypertension January 02, 2018-patient seen and examined, denies any significant abdominal pain; NG tube overnight with 800 cc however none since this morning. Labile BP. Physical Exam Vital signs: Vital Signs 01/01/18 12:00 01/01/18 13:00 01/01/18 14:59 Temperature 97.6 F 98.3 F Pulse Rate 82 84 80 Respiratory Rate 31 H 32 H 18 Blood Pressure 196/65 H 196/65 H 214/90 H Pulse Oximetry 91 L 92 L 01/01/18 15:28 01/01/18 16:47 01/01/18 16:48 Temperature 98.3 F 96.3 F L Pulse Rate 80 81 77 Respiratory Rate 18 24 12 Blood Pressure 214/90 H 201/81 H Pulse Oximetry 92 L 100 100 01/01/18 16:49 01/01/18 16:50 01/01/18 16:55 Temperature Pulse Rate 77 81 79 Respiratory Rate 15 21 22 Blood Pressure 183/123 H 209/82 H 187/75 H Pulse Oximetry 99 99 94 L 01/01/18 17:00 01/01/18 17:10 01/01/18 17:15 Temperature Pulse Rate 78 67 66 Respiratory Rate 18 24 Blood Pressure 209/84 H 202/81 H 200/83 H Pulse Oximetry 99 96 96 01/01/18 17:20 01/01/18 17:30 01/01/18 17:40 Temperature Pulse Rate 66 68 70 Respiratory Rate 20 18 22 Blood Pressure 196/84 H 179/77 H Pulse Oximetry 98 97 96 01/01/18 17:45 01/01/18 17:50 01/01/18 17:59 Temperature Pulse Rate 72 61 63 Respiratory Rate 28 H 26 H 22 Blood Pressure 201/85 H 172/73 H Pulse Oximetry 96 96 96 01/01/18 18:00 01/01/18 18:10 01/01/18 18:19 Temperature 97.6 F Pulse Rate 63 64 65 Respiratory Rate 22 18 Blood Pressure Pulse Oximetry 96 96 96 01/01/18 18:27 01/01/18 18:28 01/01/18 18:30 Temperature 98.2 F Pulse Rate 68 Respiratory Rate 29 H Blood Pressure 182/76 H 194/79 H 180/77 H Pulse Oximetry 93 L 01/01/18 19:00 01/01/18 20:00 01/01/18 23:29 Temperature 98.6 F Pulse Rate 70 74 Respiratory Rate 33 H Blood Pressure 175/77 H Pulse Oximetry 96 96 01/02/18 00:00 01/02/18 04:00 01/02/18 08:00 Temperature 98.9 F 98.7 F 96.6 F L Pulse Rate 69 79 75 Respiratory Rate 24 19 21 Blood Pressure 194/77 H 177/94 H 210/84 H Pulse Oximetry 91 L 96 93 L 01/02/18 08:17 Temperature Pulse Rate Respiratory Rate Blood Pressure Pulse Oximetry 94 L Intake & Output 01/01/18 01/02/18 01/02/18 18:59 06:59 18:59 Intake Total 2365 / 2365 950 / 950 Output Total 1735 / 1735 1390 / 1390 Balance 630 / 630 -1390 / -1390 950 / 950 Weight 71.2 kg Intake: IV 765 / 765 950 / 950 NS Inj 1,000 ML @ 80 mls/hr IV. 715 / 715 950 / 950 CONT .[id number] [facility] Rx#: [id number] Levaquin 250 mg Premix Inj 250 50 / 50 mg In 50 ml @ 100 mls/hr IV.SIG Q24H [facility] Rx#:[id number] Anesthesia Amount 1600 / 1600 Output: Urine 650 / 650 Estimated Blood Loss 5 / 5 5 / 5 Urine Amount (Catheter) 80 / 80 585 / 585 Indwelling Urethral Catheter 80 / 80 585 / 585 Gastric Drainage 1000 / 1000 800 / 800 Right Nare Nasogastric Tube 1000 / 1000 800 / 800 Other: Date of Last Bowel Movement 12/28/17 12/28/17 # Bowel Movements 0 Narrative: GENERAL: NAD SKIN: Warm and dry. HEAD: Normocephalic. EYES: No scleral icterus. No injection or drainage. NECK: Supple, trachea midline. No JVD or lymphadenopathy. CARDIOVASCULAR: Regular rate and rhythm without murmurs, gallops, or rubs. RESPIRATORY: Breath sounds equal bilaterally. No accessory muscle use. GASTROINTESTINAL: Abdomen soft, non-tender, nondistended. Abdominal binder in place MUSCULOSKELETAL: No cyanosis, or edema. BACK: Nontender without obvious deformity. No CVA tenderness. - Urinary Catheter Management Indwelling Urethral Catheter Cath placed during this visit: yes Reason for continuing: Hourly intake/output Insertion date: 01/01/18 Results - Labs CBC & Chem 7: 01/02/18 02:39 01/02/18 02:39 Laboratory Results - last 24 hr 01/01/18 01/01/18 01/01/18 12:07 12:38 17:25 WBC RBC Hgb Hct MCV MCH MCHC RDW Plt Count MPV Neut % (Auto) Lymph % (Auto) [place] % (Auto) Eos % (Auto) Baso % (Auto) Neut # (Auto) Lymph # (Auto) [place] # (Auto) Eos # (Auto) Baso # (Auto) WBC Differential Differential Comment Sodium Potassium Chloride Carbon Dioxide Anion Gap BUN Creatinine Estimated GFR POC Glucose 139 H 133 H Random Glucose Calcium Total Bilirubin AST ALT Alkaline Phosphatase Total Protein Albumin Nasal Screen MRSA (PCR) Not detected 01/01/18 01/02/18 01/02/18 22:00 02:39 02:39 WBC 6.0 RBC 5.12 Hgb 14.6 Hct 44.0 MCV 86.0 MCH 28.5 MCHC 33.2 RDW 14.4 Plt Count 169 MPV 7.8 Neut % (Auto) 77.1 H Lymph % (Auto) 13.1 [place] % (Auto) 9.6 H Eos % (Auto) 0.1 Baso % (Auto) 0.1 Neut # (Auto) 4.6 Lymph # (Auto) 0.8 L [place] # (Auto) 0.6 Eos # (Auto) 0.0 Baso # (Auto) 0.0 WBC Differential . Differential Comment Auto diff final Sodium 153 H Potassium 3.8 Chloride 111 H Carbon Dioxide 33.8 H Anion Gap 8 BUN 44 H Creatinine 1.41 H Estimated GFR 48 L POC Glucose 159 H Random Glucose 125 H Calcium 8.2 L Total Bilirubin 0.6 AST 13 L ALT 9 L Alkaline Phosphatase 62 Total Protein 6.2 L D Albumin 2.6 L Nasal Screen MRSA (PCR) 01/02/18 08:17 WBC RBC Hgb Hct MCV MCH MCHC RDW Plt Count MPV Neut % (Auto) Lymph % (Auto) [place] % (Auto) Eos % (Auto) Baso % (Auto) Neut # (Auto) Lymph # (Auto) [place] # (Auto) Eos # (Auto) Baso # (Auto) WBC Differential Differential Comment Sodium Potassium Chloride Carbon Dioxide Anion Gap BUN Creatinine Estimated GFR POC Glucose 129 H Random Glucose Calcium Total Bilirubin AST ALT Alkaline Phosphatase Total Protein Albumin Nasal Screen MRSA (PCR) - Procedures s/p Ex lap with LUPE January 01, 2018 Assessment and Plan - Assessment (1) Small bowel obstruction Code(s): K56.609 - Unspecified intestinal obstruction, unspecified as to partial versus complete obstruction Status: Acute - Plan 87-year-old man with - Small bowel obstruction Status post ex lap with LUPE Management per general surgery, continue with NG tube, n.p.o., IV fluid hydration and pain management accordingly - Diabetes mellitus on accu-check with SSI -Hypertension Labile BP Start Cardene drip and resume oral antihypertensive agents accordingly -Renal insufficiency with unknown duration- continue with IV fluid and monitor the renal function. -Ascites abdominal sonogram with trace ascites. -Possible LLL pneumonia with pleural effusion- Currently on IV Levaquin and neb treatment as needed. -History of bladder cancer. -DVT prophylaxis with SCD's
[2018-01-02] MEDS: Levofloxacin 250 mg Premix Inj 250 MG/50 ML PIGGYBACK IV.SIG SCH (13:22)
[2018-01-02] MEDS: Lisinopril 20 MG Tablet PO SCH (17:17)
[2018-01-03] MEDS: niCARdipine Inj 50 MG in Sodium Chlor 0.9% Inj 480 ML IV.CONT PRN ×6 (01:28→22:54)
[2018-01-03] MEDS: Lisinopril 20 MG Tablet PO SCH ×2 (05:19→17:14)
[2018-01-03] MEDS: Sod Chloride 0.9% Inj 1,000 ML IV.CONT SCH ×2 (05:20→17:46)
[2018-01-03 06:22] LABS: Albumin 2.5 g/dL (3.4-5.0); Anion Gap 12 meq/L (5-15); Aspartate Aminotransferase 11 U/L (15-37); Blood Urea Nitrogen 45 mg/dL (7-18); Calcium 7.6 mg/dL (8.5-10.1); Carbon Dioxide 25.4 meq/L (21.0-32.0); Chloride 111 meq/L (98-107); Glomerular Filtration Rate 50 mL/min (>89); Glucose,Random 137 mg/dL (74-106); Potassium 3.2 meq/L (3.5-5.1); Sodium 148 meq/L (136-145)
[2018-01-03 06:24] LABS: Alanine Aminotransferase 11 U/L (12-78)
[2018-01-03 06:26] LABS: Alkaline Phosphatase 62 U/L (45-117); Total Protein 5.9 g/dL (6.4-8.2)
[2018-01-03] MEDS: Sodium Chloride 0.9% 2 ML Flush BID IV.FLUSH SCH ×2 (08:02→20:18)
[2018-01-03] MEDS: Insulin NovoLOG Aspart Correctional Sugar Inj SQ SCH ×4 (08:02→20:15)
--- NOTE | 2018-01-03 08:47 | P.PN ---
Subjective Interval history: This is a patient with Follow-up small bowel obstruction status post ex lap with LUPE/benign labile hypertension 01/03: Seen in his bedroom, discussed with patient and his nurse in the room Miss Hough, giving flatus but no bowel movements, recommended by General Surgery for Liquid diet, encourage ambulation, Lovenox, continue Intensive Care management, no nausea or vomit. Physical Exam Vital signs: Vital Signs 01/02/18 12:00 01/02/18 16:00 01/02/18 20:00 Temperature 98.5 F 96.6 F L 97.9 F Pulse Rate 82 78 70 Respiratory Rate 33 H 28 H Blood Pressure 164/69 H 158/68 H 156/69 H Pulse Oximetry 93 L 93 L 93 L 01/03/18 00:00 01/03/18 04:00 01/03/18 07:51 Temperature 98.4 F 98.5 F Pulse Rate 73 76 Respiratory Rate 21 27 H Blood Pressure 155/70 H 174/76 H Pulse Oximetry 92 L 94 L Intake & Output 01/02/18 01/03/18 01/03/18 18:59 06:59 18:59 Intake Total 1600 / 1600 3460 / 3460 Output Total 350 / 350 380 / 380 Balance 1250 / 1250 3080 / 3080 Weight 71.2 kg Intake: IV 1250 / 1250 2500 / 2500 NS Inj 1,000 ML @ 80 mls/hr IV. 950 / 950 1000 / 1000 CONT .[id number] [facility] Rx#: [id number] Cardene Inj 50 MG In NS Inj 480 250 / 250 1500 / 1500 ML @ 5 MG/HR 50 mls/hr IV.CONT TITRATE PRN Rx#:[id number] Levaquin 250 mg Premix Inj 250 50 / 50 mg In 50 ml @ 100 mls/hr IV.SIG Q24H [facility] Rx#:[id number] Oral 350 / 350 960 / 960 Output: Urine Amount (Catheter) 350 / 350 380 / 380 Indwelling Urethral Catheter 350 / 350 380 / 380 Other: Date of Last Bowel Movement 12/28/17 12/28/17 # Bowel Movements 0 Narrative: GENERAL: NAD SKIN: Warm and dry. HEAD: Normocephalic. EYES: No scleral icterus. No injection or drainage. NECK: Supple, trachea midline. No JVD or lymphadenopathy. CARDIOVASCULAR: Regular rate and rhythm, Systolic murmur RESPIRATORY: Breath sounds equal bilaterally. No accessory muscle use. GASTROINTESTINAL: Abdomen soft, non-tender, nondistended. Abdominal binder in place MUSCULOSKELETAL: No cyanosis, or edema. BACK: Nontender without obvious deformity. No CVA tenderness. - Urinary Catheter Management Indwelling Urethral Catheter Cath placed during this visit: yes Reason for continuing: Hourly intake/output Insertion date: 01/01/18 Results - Labs CBC & Chem 7: 01/02/18 02:39 01/03/18 05:20 Laboratory Results - last 24 hr 01/02/18 01/02/18 01/02/18 13:28 14:00 16:36 Sodium Potassium Chloride Carbon Dioxide Anion Gap BUN Creatinine Estimated GFR POC Glucose 147 H 159 H 155 H Random Glucose Calcium Total Bilirubin AST ALT Alkaline Phosphatase Total Protein Albumin 01/02/18 01/03/18 01/03/18 20:14 05:20 08:00 Sodium 148 H Potassium 3.2 L Chloride 111 H Carbon Dioxide 25.4 Anion Gap 12 BUN 45 H Creatinine 1.36 H Estimated GFR 50 L POC Glucose 126 H 132 H Random Glucose 137 H Calcium 7.6 L Total Bilirubin 0.7 AST 11 L ALT 11 L Alkaline Phosphatase 62 Total Protein 5.9 L Albumin 2.5 L - Procedures s/p Ex lap with LUPE January 01, 2018 Assessment and Plan - Assessment (1) Small bowel obstruction Code(s): K56.609 - Unspecified intestinal obstruction, unspecified as to partial versus complete obstruction Status: Acute - Plan 87-year-old man with - Small bowel obstruction Status post ex lap with LUPE Management per general surgery, at this time giving flatus, started on liquid diet and encourage ambulation - Diabetes mellitus on accu-check with SSI -Hypertension Labile BP Start Cardene drip, added Amlodipine 10 mg daily and following. -Renal insufficiency with unknown duration- Improving. Today's Creatinine 1.36 continue with IV fluid and monitor the renal function. -Ascites abdominal sonogram with trace ascites. -Possible LLL pneumonia with pleural effusion- Currently on IV Levaquin and neb treatment as needed. -History of bladder cancer. -Hypokalemia replaced and following. -DVT prophylaxis with SCD's and heparin Subcutaneous Code Status: Full code. Discussed Condition With: Patient and Nurse Miss Hough. Discharge Planning: Once cleared by General Surgery.
[2018-01-03] MEDS ORDERED: amLODIPine 5 MG Tablet PO SCH (09:00)
[2018-01-03] MEDS: Levofloxacin 250 mg Premix Inj 250 MG/50 ML PIGGYBACK IV.SIG SCH (11:29)
[2018-01-03] MEDS ORDERED: amLODIPine 5 MG Tablet PO ONE (12:00)
--- NOTE | 2018-01-03 14:06 | P.PNGS ---
Subjective Patient reports: no new complaints, feels better, flatus Physical Exam Vital signs: Vital Signs 01/02/18 16:00 01/02/18 20:00 01/03/18 00:00 Temperature 96.6 F L 97.9 F 98.4 F Pulse Rate 78 70 73 Respiratory Rate 28 H 21 Blood Pressure 158/68 H 156/69 H 155/70 H Pulse Oximetry 93 L 93 L 92 L 01/03/18 04:00 01/03/18 07:51 01/03/18 08:00 Temperature 98.5 F 98.1 F Pulse Rate 76 73 Respiratory Rate 27 H 23 Blood Pressure 174/76 H 140/62 Pulse Oximetry 94 L Intake & Output 01/02/18 01/03/18 01/03/18 18:59 06:59 18:59 Intake Total 1600 / 1600 3460 / 3460 550 / 550 Output Total 350 / 350 380 / 380 Balance 1250 / 1250 3080 / 3080 550 / 550 Weight 71.2 kg Intake: IV 1250 / 1250 2500 / 2500 550 / 550 NS Inj 1,000 ML @ 80 mls/hr IV. 950 / 950 1000 / [id number] [facility] Rx#: [id number] Cardene Inj 50 MG In NS Inj 480 250 / 250 1500 / 1500 ML @ 5 MG/HR 50 mls/hr IV.CONT TITRATE PRN Rx#:[id number] Cardene Inj 50 MG In NS Inj 480 500 / 500 ML @ 5 MG/HR 50 mls/hr IV.CONT TITRATE PRN Rx#:[id number] Levaquin 250 mg Premix Inj 250 50 / 50 50 / 50 mg In 50 ml @ 100 mls/hr IV.SIG Q24H [facility] Rx#:[id number] Oral 350 / 350 960 / 960 Output: Urine Amount (Catheter) 350 / 350 380 / 380 Indwelling Urethral Catheter 350 / 350 380 / 380 Other: Date of Last Bowel Movement 12/28/17 12/28/17 12/28/17 # Bowel Movements 0 - Routine Abdominal Exam Present: soft (non tender, incision c/d/i) - Urinary Catheter Management Indwelling Urethral Catheter Cath placed during this visit: yes Reason for continuing: Hourly intake/output Insertion date: 01/01/18 Results - Labs 01/02/18 02:39 01/03/18 05:20 Laboratory Results - last 24 hr 01/02/18 01/02/18 01/03/18 16:36 20:14 05:20 Sodium 148 H Potassium 3.2 L Chloride 111 H Carbon Dioxide 25.4 Anion Gap 12 BUN 45 H Creatinine 1.36 H Estimated GFR 50 L POC Glucose 155 H 126 H Random Glucose 137 H Calcium 7.6 L Total Bilirubin 0.7 AST 11 L ALT 11 L Alkaline Phosphatase 62 Total Protein 5.9 L Albumin 2.5 L 01/03/18 01/03/18 08:00 11:34 Sodium Potassium Chloride Carbon Dioxide Anion Gap BUN Creatinine Estimated GFR POC Glucose 132 H 129 H Random Glucose Calcium Total Bilirubin AST ALT Alkaline Phosphatase Total Protein Albumin - Imaging Imaging: ITS Impressions Chest X-Ray 12/30/17 00:00 CONCLUSION: Small to moderate left pleural effusion with left basilar airspace disease. Right lung relatively clear. Abdomen/Pelvis CT 12/30/17 14:29 CONCLUSION: 1. Left lower lobe consolidation and left pleural effusion. 2. Ascites. 3. Atherosclerosis. 4. Severe diverticulosis. 5. Abnormal dilated loops of small intestine are identified with transition point in the central abdomen, imaging features characteristic of small bowel obstruction. Liver Ultrasound 12/31/17 00:00 CONCLUSION: 1. Gallbladder sludge without definitive sonographic findings for acute cholecystitis. 2. Increased hepatic echogenicity and hepatosplenomegaly with trace ascites. 3. Redemonstration of dilated fluid-filled loops of small bowel in the lower abdomen similar to CT exam. 4. Left pleural effusion. 5. Echogenic right kidney consistent with medical renal disease. Small Bowel X-Ray 12/31/17 00:00 CONCLUSION: Findings consistent with distal small bowel obstruction. There is very limited opacification of the bowel loops due to the obstruction. No focal transition point is able to be identified. Abdomen X-Ray 01/01/18 06:00 CONCLUSION: Dilated small bowel concerning for some degree of obstruction. Assessment and Plan - Assessment (1) Small bowel obstruction Code(s): K56.609 - Unspecified intestinal obstruction, unspecified as to partial versus complete obstruction Status: Acute Plan: 87 year old male with abdominal pain; SBO0- POD 2 Dx lap lap ruthy+bowel sounds and flatus -full liq diet - encourage ambulation - lovenox - IS - defer to medicine for aggressive bp control, - keep in icu
[2018-01-03] MEDS: Heparin - SQ 10,000 UNITS/ML Vial SQ SCH (20:11)
[2018-01-04] MEDS: Sod Chloride 0.9% Inj 1,000 ML IV.CONT SCH ×3 (03:44→21:05)
[2018-01-04] MEDS: niCARdipine Inj 50 MG in Sodium Chlor 0.9% Inj 480 ML IV.CONT PRN ×2 (03:44→08:38)
[2018-01-04 05:06] LABS: Hematocrit 39.8 % (39.0-51.0); Hemoglobin 13.2 gm/dL (13.0-17.0); Mean Corpuscular HGB Conc 33.3 % (32.0-36.0); Mean Corpuscular Hemoglobin 28.6 pg (27.0-34.0); Mean Platelet Volume 7.8 fL (7.0-11.0); Platelet Count 178 th/mm3 (150-450); Red Blood Count 4.62 mil/mm3 (4.50-5.90); Red Cell Distribution Width 13.9 % (11.6-17.2)
[2018-01-04 05:35] LABS: Calcium 7.2 mg/dL (8.5-10.1); Carbon Dioxide 22.8 meq/L (21.0-32.0)
[2018-01-04] MEDS: Lisinopril 20 MG Tablet PO SCH ×2 (05:58→17:05)
[2018-01-04 06:01] LABS: Total Protein 5.3 g/dL (6.4-8.2)
[2018-01-04] MEDS: Heparin - SQ 10,000 UNITS/ML Vial SQ SCH ×2 (09:06→21:04)
[2018-01-04] MEDS: amLODIPine 10 MG Tablet PO SCH (09:06)
[2018-01-04] MEDS: Sodium Chloride 0.9% 2 ML Flush BID IV.FLUSH SCH ×2 (09:06→21:11)
[2018-01-04] MEDS: Insulin NovoLOG Aspart Correctional Sugar Inj SQ SCH ×4 (09:28→21:11)
--- NOTE | 2018-01-04 10:54 | P.PNGS ---
Subjective Patient reports: no new complaints, feels better, flatus Physical Exam Vital signs: Vital Signs 01/03/18 12:00 01/03/18 16:00 01/03/18 20:00 Temperature 98.1 F 98.7 F Pulse Rate 64 68 75 Respiratory Rate 28 H 30 H 25 H Blood Pressure 147/64 H 157/70 H 170/72 H Pulse Oximetry 91 L 91 L 87 L 01/03/18 23:52 01/04/18 00:00 01/04/18 04:00 Temperature 98.4 F 98.4 F Pulse Rate 74 72 Respiratory Rate 22 26 H Blood Pressure 139/65 159/67 H Pulse Oximetry 94 L 91 L 90 L 01/04/18 08:40 Temperature Pulse Rate Respiratory Rate Blood Pressure Pulse Oximetry 91 L Intake & Output 01/03/18 01/04/18 01/04/18 18:59 06:59 18:59 Intake Total 2480 / 2480 2800 / 2800 500 / 500 Output Total 150 / 150 480 / 480 Balance 2330 / 2330 2320 / 2320 500 / 500 Weight 71.2 kg Intake: IV 2000 / 2000 2000 / 2000 500 / 500 NS Inj 1,000 ML @ 80 mls/hr IV. 950 / 950 1000 / 1000 CONT .[id number] [facility] Rx#: [id number] Cardene Inj 50 MG In NS Inj 480 1000 / 1000 1000 / 1000 500 / 500 ML @ 5 MG/HR 50 mls/hr IV.CONT TITRATE PRN Rx#:[id number] Levaquin 250 mg Premix Inj 250 50 / 50 mg In 50 ml @ 100 mls/hr IV.SIG Q24H [facility] Rx#:[id number] Oral 480 / 480 800 / 800 Output: Urine 0 / 0 480 / 480 Urine Amount (Catheter) 150 / 150 Indwelling Urethral Catheter 150 / 150 Other: # Voids 2 Date of Last Bowel Movement 12/28/17 12/28/17 # Bowel Movements 0 - Routine Abdominal Exam Present: soft (non tender, non distended) - Urinary Catheter Management Indwelling Urethral Catheter Cath placed during this visit: yes Reason for continuing: Hourly intake/output Insertion date: 01/01/18 Results - Labs 01/04/18 04:11 01/04/18 04:11 Laboratory Results - last 24 hr 01/03/18 01/03/18 01/03/18 11:34 17:06 20:14 WBC RBC Hgb Hct MCV MCH MCHC RDW Plt Count MPV Sodium Potassium Chloride Carbon Dioxide Anion Gap BUN Creatinine Estimated GFR POC Glucose 129 H 175 H 160 H Random Glucose Calcium Prot Corrected Calcium Phosphorus Magnesium Total Protein 01/04/18 01/04/18 01/04/18 04:11 04:11 09:17 WBC 9.0 RBC 4.62 Hgb 13.2 Hct 39.8 MCV 86.0 MCH 28.6 MCHC 33.3 RDW 13.9 Plt Count 178 MPV 7.8 Sodium 147 H Potassium 4.0 D Chloride 116 H Carbon Dioxide 22.8 Anion Gap 8 BUN 45 H Creatinine 1.28 Estimated GFR 53 L POC Glucose 154 H Random Glucose 141 H Calcium 7.2 L* Prot Corrected Calcium 8.2 L Phosphorus 2.0 L Magnesium 2.0 Total Protein 5.3 L D - Imaging Imaging: ITS Impressions Chest X-Ray 12/30/17 00:00 CONCLUSION: Small to moderate left pleural effusion with left basilar airspace disease. Right lung relatively clear. Abdomen/Pelvis CT 12/30/17 14:29 CONCLUSION: 1. Left lower lobe consolidation and left pleural effusion. 2. Ascites. 3. Atherosclerosis. 4. Severe diverticulosis. 5. Abnormal dilated loops of small intestine are identified with transition point in the central abdomen, imaging features characteristic of small bowel obstruction. Liver Ultrasound 12/31/17 00:00 CONCLUSION: 1. Gallbladder sludge without definitive sonographic findings for acute cholecystitis. 2. Increased hepatic echogenicity and hepatosplenomegaly with trace ascites. 3. Redemonstration of dilated fluid-filled loops of small bowel in the lower abdomen similar to CT exam. 4. Left pleural effusion. 5. Echogenic right kidney consistent with medical renal disease. Small Bowel X-Ray 12/31/17 00:00 CONCLUSION: Findings consistent with distal small bowel obstruction. There is very limited opacification of the bowel loops due to the obstruction. No focal transition point is able to be identified. Abdomen X-Ray 01/01/18 06:00 CONCLUSION: Dilated small bowel concerning for some degree of obstruction. Assessment and Plan - Assessment (1) Small bowel obstruction Code(s): K56.609 - Unspecified intestinal obstruction, unspecified as to partial versus complete obstruction Status: Acute Plan: 87 year old male with abdominal pain; SBO0- s/p Dx lap lap ruthy+bowel sounds and flatus -reg diet - encourage ambulation, PT - lovenox - IS - defer to medicine for aggressive bp control, - RUE us
--- NOTE | 2018-01-04 13:55 | P.PNIM ---
Subjective Interval history: Chief Complaint: abdominal pain History of Present Illness: patient is a 87 y/o male with history of bladder cancer,hypertension and diabetes who presented to ER with abdominal pain. he says that the pain started two days ago. pain is more or less generalized with no radiation. pain is moderate in intensity. pain was associated with nausea, emesis and some loose bowel movements yesterday. he denies any sob, cough or fever. 10- f/u; small bowel obstruction in no acute distress. but uncomfortable with abdominal pain. has some nausea but with no emesis. no BM. d/w the RN at the bedside. 01-01 f/u ; small bowel obstruction in no acute distress. NG tube in place. abdominal pain is better. no nausea. still with no BM/ and abdominal distention. daughter at the bedside. d/w the RN. 01-02 Follow-up small bowel obstruction status post ex lap with LUPE/benign labile hypertension January 02, 2018-patient seen and examined, denies any significant abdominal pain; NG tube overnight with 800 cc however none since this morning. Labile BP. 01-03 This is a patient with Follow-up small bowel obstruction status post ex lap with LUPE/benign labile hypertension 01/03: Seen in his bedroom, discussed with patient and his nurse in the room Miss Hough, giving flatus but no bowel movements, recommended by General Surgery for Liquid diet, encourage ambulation, Lovenox, continue Intensive Care management, no nausea or vomit. 01-04 DIET BEING ADVANCED BY SURGERY TAKING PO MEDS HAVING BM/DIARRHEA TODAY DW RN AND PT PT AND OT AM LABS TRY TO WEAN OFF CARDENE DRIP Physical Exam Vital signs: Vital Signs 01/03/18 16:00 01/03/18 20:00 01/03/18 23:52 Temperature 98.7 F Pulse Rate 68 75 Respiratory Rate 30 H 25 H Blood Pressure 157/70 H 170/72 H Pulse Oximetry 91 L 87 L 94 L 01/04/18 00:00 01/04/18 04:00 01/04/18 08:40 Temperature 98.4 F 98.4 F Pulse Rate 74 72 Respiratory Rate 22 26 H Blood Pressure 139/65 159/67 H Pulse Oximetry 91 L 90 L 91 L Intake & Output 01/03/18 01/04/18 01/04/18 18:59 06:59 18:59 Intake Total 2480 / 2480 2800 / 2800 500 / 500 Output Total 150 / 150 480 / 480 Balance 2330 / 2330 2320 / 2320 500 / 500 Weight 71.2 kg Intake: IV 1999 / 1999 1999 / 1999 500 / 500 NS Inj 1,000 ML @ 80 mls/hr IV. 950 / 950 1000 / 1000 CONT .[id number] [facility] Rx#: [id number] Cardene Inj 50 MG In NS Inj 480 1000 / 1000 1000 / 1000 500 / 500 ML @ 5 MG/HR 50 mls/hr IV.CONT TITRATE PRN Rx#:[id number] Levaquin 250 mg Premix Inj 250 50 / 50 mg In 50 ml @ 100 mls/hr IV.SIG Q24H [facility] Rx#:[id number] Oral 480 / 480 800 / 800 Output: Urine 0 / 0 480 / 480 Urine Amount (Catheter) 150 / 150 Indwelling Urethral Catheter 150 / 150 Other: # Voids 2 Date of Last Bowel Movement 12/28/17 12/28/17 12/28/17 # Bowel Movements 0 Narrative: GENERAL: NAD SKIN: Warm and dry. HEAD: Normocephalic. EYES: No scleral icterus. No injection or drainage. NECK: Supple, trachea midline. No JVD or lymphadenopathy. CARDIOVASCULAR: Regular rate and rhythm, Systolic murmur RESPIRATORY: Breath sounds equal bilaterally. No accessory muscle use. GASTROINTESTINAL: Abdomen soft, non-tender, nondistended. Abdominal binder in place MUSCULOSKELETAL: No cyanosis, or edema. BACK: Nontender without obvious deformity. No CVA tenderness. - Urinary Catheter Management Indwelling Urethral Catheter Cath placed during this visit: yes Reason for continuing: Hourly intake/output Insertion date: 01/01/18 Results - Labs CBC & Chem 7: 01/04/18 04:11 01/04/18 04:11 Laboratory Results - last 24 hr 01/03/18 01/03/18 01/04/18 17:06 20:14 04:11 WBC RBC Hgb Hct MCV MCH MCHC RDW Plt Count MPV Sodium 147 H Potassium 4.0 D Chloride 116 H Carbon Dioxide 22.8 Anion Gap 8 BUN 45 H Creatinine 1.28 Estimated GFR 53 L POC Glucose 175 H 160 H Random Glucose 141 H Calcium 7.2 L* Prot Corrected Calcium 8.2 L Phosphorus 2.0 L Magnesium 2.0 Total Protein 5.3 L D 01/04/18 01/04/18 04:11 09:17 WBC 9.0 RBC 4.62 Hgb 13.2 Hct 39.8 MCV 86.0 MCH 28.6 MCHC 33.3 RDW 13.9 Plt Count 178 MPV 7.8 Sodium Potassium Chloride Carbon Dioxide Anion Gap BUN Creatinine Estimated GFR POC Glucose 154 H Random Glucose Calcium Prot Corrected Calcium Phosphorus Magnesium Total Protein - Imaging ITS Impressions Chest X-Ray 12/30/17 00:00 CONCLUSION: Small to moderate left pleural effusion with left basilar airspace disease. Right lung relatively clear. Abdomen/Pelvis CT 12/30/17 14:29 CONCLUSION: 1. Left lower lobe consolidation and left pleural effusion. 2. Ascites. 3. Atherosclerosis. 4. Severe diverticulosis. 5. Abnormal dilated loops of small intestine are identified with transition point in the central abdomen, imaging features characteristic of small bowel obstruction. Liver Ultrasound 12/31/17 00:00 CONCLUSION: 1. Gallbladder sludge without definitive sonographic findings for acute cholecystitis. 2. Increased hepatic echogenicity and hepatosplenomegaly with trace ascites. 3. Redemonstration of dilated fluid-filled loops of small bowel in the lower abdomen similar to CT exam. 4. Left pleural effusion. 5. Echogenic right kidney consistent with medical renal disease. Small Bowel X-Ray 12/31/17 00:00 CONCLUSION: Findings consistent with distal small bowel obstruction. There is very limited opacification of the bowel loops due to the obstruction. No focal transition point is able to be identified. Abdomen X-Ray 01/01/18 06:00 CONCLUSION: Dilated small bowel concerning for some degree of obstruction. - Procedures s/p Ex lap with LUPE January 01, 2018 Assessment and Plan - Assessment (1) Small bowel obstruction Code(s): K56.609 - Unspecified intestinal obstruction, unspecified as to partial versus complete obstruction Status: Acute - Plan 87-year-old man with - Small bowel obstruction Status post ex lap with LUPE Management per general surgery, at this time giving flatus, started on liquid diet and encourage ambulation - Diabetes mellitus on accu-check with SSI -Hypertension Labile BP Start Cardene drip, added Amlodipine 10 mg daily and following. LISINOPRIL 20MG PO BID ADD HYDRALAZINE 25MG PO TID PRN CATAPRES 0.1MG PO Q6H PRN -Renal insufficiency with unknown duration- Improving. Today's Creatinine 1.36 continue with IV fluid and monitor the renal function. -Ascites abdominal sonogram with trace ascites. -Possible LLL pneumonia with pleural effusion- Currently on IV Levaquin and neb treatment as needed. -History of bladder cancer. -Hypokalemia replaced and following. -DVT prophylaxis with SCD's and heparin Subcutaneous Code Status: FULL CODE Discussed Condition With: RN AND PT Discharge Planning: PENDING TOLERATING A DIET AND BLOOD PRESSURE UNDER CONTROL
[2018-01-04] MEDS: hydrALAZINE 25 MG Tablet PO SCH ×2 (14:38→17:05)
[2018-01-04] MEDS: guaiFENesin 600 MG ER Tablet PO SCH ×2 (14:38→21:04)
[2018-01-04] MEDS: Levofloxacin 250 mg Premix Inj 250 MG/50 ML PIGGYBACK IV.SIG SCH ×3 (14:38→16:20)
[2018-01-04] MEDS: Senna/Docusate Sodium 8.6/50 MG Tablet PO SCH ×2 (14:39→21:12)
--- NOTE | 2018-01-04 15:39 | US ---
EXAM DATE: 01/04/2018 12:00 AM EDT AGE/SEX: 87 years / Male INDICATIONS: Right arm swelling. CLINICAL DATA: This is the patient's initial encounter. Patient reports that signs and symptoms have been present for 1 day and indicates a pain score of 0/10. MEDICAL/SURGICAL HISTORY: Diabetes. Hypertension. Bladder cancer. Small bowel obstruction. . Bladder surgery. Urethral catheter. COMPARISON: No prior exams available for comparison. FINDINGS: The vessels are compressible and augmentation response is documented. No filling defects a re seen. The flow is phasic with respiration. Other: None. CONCLUSION: 1. No sonographic evidence for right upper extremity DVT. Electronically signed by: Jonatan Farr MD 01/04/2018 3:37 PM EDT
--- NOTE | 2018-01-04 18:52 | ECHRPT ---
Indication: hypertensive heart disease CONCLUSIONS Normal left ventricular size. Mild concentric left ventricular hypertrophy. The left ventricular systolic function is low normal with an estimated ejection fraction in the rang e of 50- 55%. Trileaflet valve with partially fused commissure. Mild to moderate aortic valve stenosis. Mean gradient 23 mmhg. The estimated pulmonary arterial pressure is 40 mmHg. There is mild tricuspid valve regurgitation. Mild pulmonary valve stenosis, peak gradient 35 mmHg. A moderate left sided pleural effusion is noted. BP: / HR: Rhythm: MEASUREMENTS (Male / Female) Normal Values Technical Quality: 2D ECHO LV Diastolic Diameter PLAX 4.2 cm 4.2 - 5.9 / 3.9 - 5.3 cm LV Systolic Diameter PLAX 2.8 cm IVS Diastolic Thickness 1.3 cm 0.6 - 1.0 / 0.6 - 0.9 cm LVPW Diastolic Thickness 1.2 cm 0.6 - 1.0 / 0.6 - 0.9 cm LV Relative Wall Thickness 0.6 RV Internal Dim ED PLAX 3.3 cm LVOT Diameter 1.8 cm Aortic Root Diameter 3.1 cm LA Systolic Diameter LX 4.0 cm 3.0 - 4.0 / 2.7 - 3.8 cm LV Ejection Fraction MOD 4C 50.0 % LV Ejection Fraction 4C AL 54.4 % M-MODE Aortic Root Diameter MM 2.6 cm LA Systolic Diameter MM 5.1 cm LA Ao Ratio MM 2.0 AV Cusp Separation MM 1.5 cm DOPPLER AV Peak Velocity 206.6 cm/s AV Peak Gradient 17.1 mmHg AV Mean Gradient 23.3 mmHg AV Velocity Time Integral 79.1 cm LVOT Peak Velocity 143.0 cm/s LVOT Peak Gradient 8.2 mmHg LVOT Velocity Time Integral 38.5 cm AV Area Cont Eq vti 1.3 cm AV Area Cont Eq pk 1.9 cm Mitral E Point Velocity 72.0 cm/s Mitral A Point Velocity 74.7 cm/s Mitral E to A Ratio 1.0 TR Peak Velocity 273.0 cm/s TR Peak Gradient 29.8 mmHg Right Atrial Pressure 10.0 mmHg Pulmonary Artery Systolic Pressu 39.8 mmHg Right Ventricular Systolic Press 39.8 mmHg PV Peak Velocity 228.3 cm/s PV Peak Gradient 20.8 mmHg FINDINGS LEFT VENTRICLE Normal left ventricular size. Mild concentric left ventricular hypertrophy. The left ventricular systolic function is low normal with an estimated ejection fraction in the rang e of 50- 55%. RIGHT VENTRICLE Normal right ventricular size and systolic function. LEFT ATRIUM The left atrial size is normal. RIGHT ATRIUM The right atrial size is normal. ATRIAL SEPTUM Normal atrial septal thickness without atrial level shunting by limited color doppler interrogation. AORTA The aortic root and proximal ascending aorta are normal in size on limited imaging. MITRAL VALVE Structurally normal mitral valve. No mitral valve stenosis or regurgitation. AORTIC VALVE trileaflet valve with partially fused commissure. Mild to moderate aortic valve stenosis. Mean gradient 23 mmhg. Aortic valve area is 1.3 cm. TRICUSPID VALVE The estimated pulmonary arterial pressure is 40 mmHg. There is mild tricuspid valve regurgitation. PULMONARY VALVE Mild pulmonary valve stenosis, peak gradient 35 mmHg. VESSELS The inferior vena cava is normal in size. PERICARDIUM A moderate left sided pleural effusion is noted. Carlitos Prasad MD, FACC (Electronically Signed) Final Date:04 January 2018 18:49
[2018-01-04] MEDS: Budesonide-Formoterol 160/4.5 MCG 6 GM Inhaler INH SCH (21:05)
[2018-01-05] MEDS: Lisinopril 20 MG Tablet PO SCH ×2 (05:00→18:10)
[2018-01-05 05:43] LABS: Baso % (Auto) 0.2 % (0.0-2.0); Eos # (Auto) 0.1 th/mm3 (0.0-0.4); Eos % (Auto) 1.3 % (0.0-4.0); Hematocrit 42.5 % (39.0-51.0); Hemoglobin 14.5 gm/dL (13.0-17.0); Lymph % (Auto) 11.7 % (9.0-44.0); Mean Corpuscular Hemoglobin 28.8 pg (27.0-34.0); Mean Corpuscular Volume 84.6 fL (80.0-100.0); Mean Platelet Volume 7.9 fL (7.0-11.0); Mono # (Auto) 0.7 th/mm3 (0.0-0.9); Mono % (Auto) 7.3 % (0.0-8.0); Neut # (Auto) 7.1 th/mm3 (1.8-7.7); Neut % (Auto) 79.5 % (16.0-70.0); Platelet Count 172 th/mm3 (150-450); Red Blood Count 5.02 mil/mm3 (4.50-5.90); Red Cell Distribution Width 13.9 % (11.6-17.2); White Blood Count 8.9 th/mm3 (4.0-11.0)
[2018-01-05 06:09] LABS: Albumin 2.3 g/dL (3.4-5.0); Anion Gap 11 meq/L (5-15); Blood Urea Nitrogen 35 mg/dL (7-18); Calcium 7.8 mg/dL (8.5-10.1); Chloride 117 meq/L (98-107); Glomerular Filtration Rate 63 mL/min (>89); Glucose,Random 126 mg/dL (74-106); Magnesium 2.1 mg/dL (1.5-2.5); Potassium 4.1 meq/L (3.5-5.1); Sodium 150 meq/L (136-145)
[2018-01-05 06:10] LABS: Aspartate Aminotransferase 17 U/L (15-37)
[2018-01-05 06:20] LABS: Alanine Aminotransferase 11 U/L (12-78); Alkaline Phosphatase 59 U/L (45-117); Free T4 (Free Thyroxine) 1.23 ng/dL (0.76-1.46); Phosphorus 2.3 mg/dL (2.5-4.9); Thyroid Stimulating Hormone 0.777 uIU/mL (0.358-3.740); Total Protein 5.7 g/dL (6.4-8.2)
[2018-01-05] MEDS: Budesonide-Formoterol 160/4.5 MCG 6 GM Inhaler INH SCH ×2 (08:51→23:05)
[2018-01-05] MEDS: amLODIPine 10 MG Tablet PO SCH (08:51)
[2018-01-05] MEDS: guaiFENesin 600 MG ER Tablet PO SCH ×2 (08:51→23:06)
[2018-01-05] MEDS: hydrALAZINE 25 MG Tablet PO SCH ×4 (08:51→18:10)
[2018-01-05] MEDS: Heparin - SQ 10,000 UNITS/ML Vial SQ SCH ×2 (08:51→23:06)
[2018-01-05] MEDS: Sodium Chloride 0.9% 2 ML Flush BID IV.FLUSH SCH ×2 (08:52→23:06)
[2018-01-05] MEDS: Sod Chloride 0.9% Inj 1,000 ML IV.CONT SCH ×2 (08:52→23:05)
[2018-01-05] MEDS: Senna/Docusate Sodium 8.6/50 MG Tablet PO SCH ×2 (08:53→23:06)
[2018-01-05] MEDS: Insulin NovoLOG Aspart Correctional Sugar Inj SQ SCH ×4 (09:41→23:06)
[2018-01-05] MEDS: Levofloxacin 250 mg Premix Inj 250 MG/50 ML PIGGYBACK IV.SIG SCH (12:03)
--- NOTE | 2018-01-05 12:58 | P.PNIM ---
Subjective Interval history: Chief Complaint: abdominal pain History of Present Illness: patient is a 87 y/o male with history of bladder cancer,hypertension and diabetes who presented to ER with abdominal pain. he says that the pain started two days ago. pain is more or less generalized with no radiation. pain is moderate in intensity. pain was associated with nausea, emesis and some loose bowel movements yesterday. he denies any sob, cough or fever. 10 f/u; small bowel obstruction in no acute distress. but uncomfortable with abdominal pain. has some nausea but with no emesis. no BM. d/w the RN at the bedside. 01-01 f/u ; small bowel obstruction in no acute distress. NG tube in place. abdominal pain is better. no nausea. still with no BM/ and abdominal distention. daughter at the bedside. d/w the RN. 01-02 Follow-up small bowel obstruction status post ex lap with LUPE/benign labile hypertension January 02, 2018-patient seen and examined, denies any significant abdominal pain; NG tube overnight with 800 cc however none since this morning. Labile BP. 01-03 This is a patient with Follow-up small bowel obstruction status post ex lap with LUPE/benign labile hypertension 01/03: Seen in his bedroom, discussed with patient and his nurse in the room Miss Hough, giving flatus but no bowel movements, recommended by General Surgery for Liquid diet, encourage ambulation, Lovenox, continue Intensive Care management, no nausea or vomit. 01-04 DIET BEING ADVANCED BY SURGERY TAKING PO MEDS HAVING BM/DIARRHEA TODAY DW RN AND PT PT AND OT AM LABS TRY TO WEAN OFF CARDENE DRIP 01-05 INCREASE BLOOD PRESSURE MEDS INCREASE HYDRALAZINE DW RN AND PT OFF CARDENE DRIP AM LABS PT AND OT Physical Exam Vital signs: Vital Signs 01/04/18 16:00 01/04/18 20:00 01/04/18 20:25 Temperature 98.8 F 98.3 F Pulse Rate 90 71 74 Respiratory Rate 30 H 27 H 18 Blood Pressure 149/65 H Pulse Oximetry 90 L 90 L 92 L 01/05/18 00:00 01/05/18 04:00 01/05/18 08:00 Temperature 98.4 F 99.0 F 97.7 F Pulse Rate 76 76 64 Respiratory Rate 23 23 20 Blood Pressure 146/62 H 170/74 H 188/79 H Pulse Oximetry 90 L 90 L 93 L 01/05/18 08:02 01/05/18 12:11 Temperature Pulse Rate 75 67 Respiratory Rate 19 18 Blood Pressure Pulse Oximetry 94 L Intake & Output 01/04/18 01/05/18 01/05/18 18:59 06:59 18:59 Intake Total 1030 / 1030 1000 / 1000 600 / 600 Output Total 675 / 675 Balance 1030 / 1030 325 / 325 600 / 600 Weight 71.2 kg Intake: IV 550 / 550 600 / 600 NS Inj 1,000 ML @ 80 mls/hr IV. 600 / 600 CONT .[id number] [facility] Rx#: [id number] Cardene Inj 50 MG In NS Inj 480 500 / 500 ML @ 5 MG/HR 50 mls/hr IV.CONT TITRATE PRN Rx#:[id number] Levaquin 250 mg Premix Inj 250 50 / 50 mg In 50 ml @ 100 mls/hr IV.SIG Q24H [facility] Rx#:[id number] Oral 480 / 480 1000 / 1000 Output: Urine 675 / 675 Other: # Voids 3 4 Date of Last Bowel Movement 01/04/18 01/05/18 # Bowel Movements 2 2 Narrative: GENERAL: NAD SKIN: Warm and dry. HEAD: Normocephalic. EYES: No scleral icterus. No injection or drainage. NECK: Supple, trachea midline. No JVD or lymphadenopathy. CARDIOVASCULAR: Regular rate and rhythm, Systolic murmur RESPIRATORY: Breath sounds equal bilaterally. No accessory muscle use. GASTROINTESTINAL: Abdomen soft, non-tender, nondistended. Abdominal binder in place MUSCULOSKELETAL: No cyanosis, or edema. BACK: Nontender without obvious deformity. No CVA tenderness. - Urinary Catheter Management Indwelling Urethral Catheter Cath placed during this visit: yes Reason for continuing: Hourly intake/output Insertion date: 01/01/18 Results - Labs CBC & Chem 7: 01/05/18 04:50 01/05/18 04:50 Laboratory Results - last 24 hr 01/04/18 01/04/18 01/05/18 15:36 21:09 04:50 WBC 8.9 RBC 5.02 Hgb 14.5 Hct 42.5 MCV 84.6 MCH 28.8 MCHC 34.0 RDW 13.9 Plt Count 172 MPV 7.9 Prelim Diff (Auto) Slide review pending Neut % (Auto) 79.5 H Lymph % (Auto) 11.7 [place] % (Auto) 7.3 Eos % (Auto) 1.3 Baso % (Auto) 0.2 Neut # (Auto) 7.1 Lymph # (Auto) 1.0 [place] # (Auto) 0.7 Eos # (Auto) 0.1 Baso # (Auto) 0.0 WBC Differential . Diff Scan Auto diff confirmed Differential Comment . Sodium Potassium Chloride Carbon Dioxide Anion Gap BUN Creatinine Estimated GFR POC Glucose 111 H 120 H Random Glucose Calcium Phosphorus Magnesium Total Bilirubin AST ALT Alkaline Phosphatase Total Protein Albumin TSH Free T4 01/05/18 01/05/18 01/05/18 04:50 08:55 12:28 WBC RBC Hgb Hct MCV MCH MCHC RDW Plt Count MPV Prelim Diff (Auto) Neut % (Auto) Lymph % (Auto) [place] % (Auto) Eos % (Auto) Baso % (Auto) Neut # (Auto) Lymph # (Auto) [place] # (Auto) Eos # (Auto) Baso # (Auto) WBC Differential Diff Scan Differential Comment Sodium 150 H Potassium 4.1 Chloride 117 H Carbon Dioxide 22.0 Anion Gap 11 BUN 35 H Creatinine 1.10 Estimated GFR 63 L POC Glucose 125 H 160 H Random Glucose 126 H Calcium 7.8 L Phosphorus 2.3 L Magnesium 2.1 Total Bilirubin 0.8 AST 17 ALT 11 L Alkaline Phosphatase 59 Total Protein 5.7 L Albumin 2.3 L TSH 0.777 Free T4 1.23 - Imaging Impressions Venous Doppler Study 01/04/18 00:00 CONCLUSION: 1. No sonographic evidence for right upper extremity DVT. - Procedures s/p Ex lap with LUPE January 01, 2018 Assessment and Plan - Assessment (1) Small bowel obstruction Code(s): K56.609 - Unspecified intestinal obstruction, unspecified as to partial versus complete obstruction Status: Acute - Plan 87-year-old man with - Small bowel obstruction Status post ex lap with LUPE Management per general surgery, at this time giving flatus, started on REGULAR CARDIAC DM DIET - Diabetes mellitus on accu-check with SSI -Hypertension Labile BP Start Cardene drip, added Amlodipine 10 mg daily and following. LISINOPRIL 20MG PO BID ADD HYDRALAZINE 50MG PO TID PRN CATAPRES 0.1MG PO Q6H PRN SCHEDULE TRIAMTERENE/HCTZ -Renal insufficiency with unknown duration- Improving. Today's Creatinine 1.10 continue with IV fluid and monitor the renal function. -Ascites abdominal sonogram with trace ascites. -Possible LLL pneumonia with pleural effusion- Currently on IV Levaquin and neb treatment as needed. -History of bladder cancer. -Hypokalemia replaced and following. -DVT prophylaxis with SCD's and heparin Subcutaneous CHANGE DIET TO DM CARDIAC DIET Code Status: FULL CODE Discussed Condition With: RN AND PT Discharge Planning: PENDING TOLERATING A DIET AND BLOOD PRESSURE UNDER CONTROL
[2018-01-05] MEDS: Triamterene/HCTZ 37.5 MG/25 MG Tablet PO SCH (16:51)
[2018-01-05 17:03] LABS: Hemoglobin A1c 6.4 % (4.3-6.0)
--- NOTE | 2018-01-05 18:59 | P.PNGS ---
Subjective Patient reports: no new complaints, feels better, flatus (still with htn), bowel movement Physical Exam Vital signs: Vital Signs 01/04/18 20:00 01/04/18 20:25 01/05/18 00:00 Temperature 98.3 F 98.4 F Pulse Rate 71 74 76 Respiratory Rate 27 H 18 23 Blood Pressure 146/62 H Pulse Oximetry 90 L 92 L 90 L 01/05/18 04:00 01/05/18 08:00 01/05/18 08:02 Temperature 99.0 F 97.7 F Pulse Rate 76 64 75 Respiratory Rate 23 20 19 Blood Pressure 170/74 H 188/79 H Pulse Oximetry 90 L 93 L 94 L 01/05/18 12:00 01/05/18 12:11 01/05/18 16:00 Temperature 97.9 F 98.0 F Pulse Rate 67 67 74 Respiratory Rate 26 H 18 22 Blood Pressure 194/81 H 188/82 H Pulse Oximetry 88 L 86 L Intake & Output 01/04/18 01/05/18 01/05/18 18:59 06:59 18:59 Intake Total 1030 / 1030 1000 / 1000 650 / 650 Output Total 675 / 675 500 / 500 Balance 1030 / 1030 325 / 325 150 / 150 Weight 71.2 kg Intake: IV 550 / 550 650 / 650 NS Inj 1,000 ML @ 80 mls/hr IV. 600 / 600 CONT .[id number] [facility] Rx#: [id number] Cardene Inj 50 MG In NS Inj 480 500 / 500 ML @ 5 MG/HR 50 mls/hr IV.CONT TITRATE PRN Rx#:[id number] Levaquin 250 mg Premix Inj 250 50 / 50 50 / 50 mg In 50 ml @ 100 mls/hr IV.SIG Q24H [facility] Rx#:[id number] Oral 480 / 480 1000 / 1000 Output: Urine 675 / 675 500 / 500 Other: # Voids 3 4 Date of Last Bowel Movement 01/04/18 01/05/18 01/05/18 # Bowel Movements 2 2 2 - Routine Abdominal Exam Present: soft (well healing incisions) - Urinary Catheter Management Indwelling Urethral Catheter Cath placed during this visit: yes Reason for continuing: Hourly intake/output Insertion date: 01/01/18 Results - Labs 01/05/18 04:50 01/05/18 04:50 Laboratory Results - last 24 hr 01/04/18 01/05/18 01/05/18 21:09 04:50 04:50 WBC 8.9 RBC 5.02 Hgb 14.5 Hct 42.5 MCV 84.6 MCH 28.8 MCHC 34.0 RDW 13.9 Plt Count 172 MPV 7.9 Prelim Diff (Auto) Slide review pending Neut % (Auto) 79.5 H Lymph % (Auto) 11.7 [place] % (Auto) 7.3 Eos % (Auto) 1.3 Baso % (Auto) 0.2 Neut # (Auto) 7.1 Lymph # (Auto) 1.0 [place] # (Auto) 0.7 Eos # (Auto) 0.1 Baso # (Auto) 0.0 WBC Differential . Diff Scan Auto diff confirmed Differential Comment . Sodium 150 H Potassium 4.1 Chloride 117 H Carbon Dioxide 22.0 Anion Gap 11 BUN 35 H Creatinine 1.10 Estimated GFR 63 L POC Glucose 120 H Random Glucose 126 H Calcium 7.8 L Phosphorus 2.3 L Magnesium 2.1 Total Bilirubin 0.8 AST 17 ALT 11 L Alkaline Phosphatase 59 Total Protein 5.7 L Albumin 2.3 L TSH 0.777 Free T4 1.23 01/05/18 01/05/18 01/05/18 08:55 12:28 17:04 WBC RBC Hgb Hct MCV MCH MCHC RDW Plt Count MPV Prelim Diff (Auto) Neut % (Auto) Lymph % (Auto) [place] % (Auto) Eos % (Auto) Baso % (Auto) Neut # (Auto) Lymph # (Auto) [place] # (Auto) Eos # (Auto) Baso # (Auto) WBC Differential Diff Scan Differential Comment Sodium Potassium Chloride Carbon Dioxide Anion Gap BUN Creatinine Estimated GFR POC Glucose 125 H 160 H 170 H Random Glucose Calcium Phosphorus Magnesium Total Bilirubin AST ALT Alkaline Phosphatase Total Protein Albumin TSH Free T4 - Imaging Imaging: ITS Impressions Chest X-Ray 12/30/17 00:00 CONCLUSION: Small to moderate left pleural effusion with left basilar airspace disease. Right lung relatively clear. Abdomen/Pelvis CT 12/30/17 14:29 CONCLUSION: 1. Left lower lobe consolidation and left pleural effusion. 2. Ascites. 3. Atherosclerosis. 4. Severe diverticulosis. 5. Abnormal dilated loops of small intestine are identified with transition point in the central abdomen, imaging features characteristic of small bowel obstruction. Liver Ultrasound 12/31/17 00:00 CONCLUSION: 1. Gallbladder sludge without definitive sonographic findings for acute cholecystitis. 2. Increased hepatic echogenicity and hepatosplenomegaly with trace ascites. 3. Redemonstration of dilated fluid-filled loops of small bowel in the lower abdomen similar to CT exam. 4. Left pleural effusion. 5. Echogenic right kidney consistent with medical renal disease. Small Bowel X-Ray 12/31/17 00:00 CONCLUSION: Findings consistent with distal small bowel obstruction. There is very limited opacification of the bowel loops due to the obstruction. No focal transition point is able to be identified. Abdomen X-Ray 01/01/18 06:00 CONCLUSION: Dilated small bowel concerning for some degree of obstruction. Venous Doppler Study 01/04/18 00:00 CONCLUSION: 1. No sonographic evidence for right upper extremity DVT. Assessment and Plan - Assessment (1) Small bowel obstruction Code(s): K56.609 - Unspecified intestinal obstruction, unspecified as to partial versus complete obstruction Status: Acute Plan: 87 year old male with abdominal pain; SBO0- s/p Dx lap lap ruthy+bowel sounds and flatus -reg diet - encourage ambulation, PT - lovenox - IS - defer to medicine for aggressive bp control, - will follow peripherally, ok to d/c when bp controlled
[2018-01-05] MEDS: traZODone 50 MG Tablet PO SCH (23:06)
[2018-01-06] MEDS: Lisinopril 20 MG Tablet PO SCH ×2 (05:44→17:54)
[2018-01-06 07:14] LABS: Baso % (Auto) 0.3 % (0.0-2.0); Eos # (Auto) 0.1 th/mm3 (0.0-0.4); Eos % (Auto) 1.2 % (0.0-4.0); Hematocrit 39.8 % (39.0-51.0); Hemoglobin 13.7 gm/dL (13.0-17.0); Lymph # (Auto) 1.1 th/mm3 (1.0-4.8); Mean Corpuscular HGB Conc 34.5 % (32.0-36.0); Mean Corpuscular Hemoglobin 28.9 pg (27.0-34.0); Mean Corpuscular Volume 83.7 fL (80.0-100.0); Mean Platelet Volume 8.1 fL (7.0-11.0); Mono # (Auto) 0.7 th/mm3 (0.0-0.9); Mono % (Auto) 8.1 % (0.0-8.0); Neut # (Auto) 6.6 th/mm3 (1.8-7.7); Neut % (Auto) 77.4 % (16.0-70.0); Platelet Count 154 th/mm3 (150-450); Red Blood Count 4.75 mil/mm3 (4.50-5.90); Red Cell Distribution Width 13.7 % (11.6-17.2); White Blood Count 8.5 th/mm3 (4.0-11.0)
[2018-01-06 07:42] LABS: Alanine Aminotransferase 10 U/L (12-78); Albumin 2.2 g/dL (3.4-5.0); Alkaline Phosphatase 51 U/L (45-117); Anion Gap 9 meq/L (5-15); Aspartate Aminotransferase 14 U/L (15-37); Blood Urea Nitrogen 25 mg/dL (7-18); Calcium 7.7 mg/dL (8.5-10.1); Carbon Dioxide 23.4 meq/L (21.0-32.0); Chloride 115 meq/L (98-107); Glomerular Filtration Rate 75 mL/min (>89); Glucose,Random 128 mg/dL (74-106); Phosphorus 2.1 mg/dL (2.5-4.9); Potassium 3.8 meq/L (3.5-5.1); Sodium 147 meq/L (136-145); Total Protein 5.2 g/dL (6.4-8.2)
[2018-01-06] MEDS: Insulin NovoLOG Aspart Correctional Sugar Inj SQ SCH ×4 (08:00→21:34)
[2018-01-06] MEDS: amLODIPine 10 MG Tablet PO SCH (08:22)
[2018-01-06] MEDS: Senna/Docusate Sodium 8.6/50 MG Tablet PO SCH ×3 (08:22→20:14)
[2018-01-06] MEDS: guaiFENesin 600 MG ER Tablet PO SCH ×2 (08:22→20:14)
[2018-01-06] MEDS: Triamterene/HCTZ 37.5 MG/25 MG Tablet PO SCH (08:22)
[2018-01-06] MEDS: hydrALAZINE 25 MG Tablet PO SCH ×3 (08:23→17:55)
[2018-01-06] MEDS: Heparin - SQ 10,000 UNITS/ML Vial SQ SCH ×2 (08:23→20:14)
[2018-01-06] MEDS: Sodium Chloride 0.9% 2 ML Flush BID IV.FLUSH SCH ×2 (08:24→20:15)
[2018-01-06] MEDS: Sod Chloride 0.9% Inj 1,000 ML IV.CONT SCH ×2 (09:04→23:35)
[2018-01-06 09:18] LABS: Eosinophils 1 % (0-4); Lymphocytes 16 % (9-44); Metamyelocytes 2 % (0-1); Monocytes 3 % (0-8); Myelocytes 3 % (0-0)
[2018-01-06 09:19] LABS: Platelet Estimate Normal (Normal); Platelet Morphology Normal (Normal); RBC Morphology Normal (Normal)
--- NOTE | 2018-01-06 12:25 | P.PNIM ---
Subjective Interval history: Chief Complaint: abdominal pain History of Present Illness: patient is a 87 y/o male with history of bladder cancer,hypertension and diabetes who presented to ER with abdominal pain. he says that the pain started two days ago. pain is more or less generalized with no radiation. pain is moderate in intensity. pain was associated with nausea, emesis and some loose bowel movements yesterday. he denies any sob, cough or fever. 10 f/u; small bowel obstruction in no acute distress. but uncomfortable with abdominal pain. has some nausea but with no emesis. no BM. d/w the RN at the bedside. 01-01 f/u ; small bowel obstruction in no acute distress. NG tube in place. abdominal pain is better. no nausea. still with no BM/ and abdominal distention. daughter at the bedside. d/w the RN. 01-02 Follow-up small bowel obstruction status post ex lap with LUPE/benign labile hypertension January 02, 2018-patient seen and examined, denies any significant abdominal pain; NG tube overnight with 800 cc however none since this morning. Labile BP. 01-03 This is a patient with Follow-up small bowel obstruction status post ex lap with LUPE/benign labile hypertension 01/03: Seen in his bedroom, discussed with patient and his nurse in the room Miss Hough, giving flatus but no bowel movements, recommended by General Surgery for Liquid diet, encourage ambulation, Lovenox, continue Intensive Care management, no nausea or vomit. 01-04 DIET BEING ADVANCED BY SURGERY TAKING PO MEDS HAVING BM/DIARRHEA TODAY DW RN AND PT PT AND OT AM LABS TRY TO WEAN OFF CARDENE DRIP 01-05 INCREASE BLOOD PRESSURE MEDS INCREASE HYDRALAZINE DW RN AND PT OFF CARDENE DRIP AM LABS PT AND OT 01-06 BLOOD PRESSURE HAS STILL BEEN VERY HIGH WILL INCREASE HYDRALAZINE AGAIN TRY TO KEEP OFF CARDENE DRIP AM LABS PT AND OT DW RN AND PT Physical Exam Vital signs: Vital Signs 01/05/18 16:00 01/05/18 19:56 01/05/18 20:00 Temperature 98.0 F 98.8 F Pulse Rate 74 74 81 Respiratory Rate 22 18 24 Blood Pressure 188/82 H 164/70 H Pulse Oximetry 86 L 98 94 L 01/06/18 00:00 01/06/18 04:00 01/06/18 04:15 Temperature 98.7 F 98.7 F Pulse Rate 82 75 74 Respiratory Rate 31 H 35 H 34 H Blood Pressure 163/77 H 185/81 H 199/81 H Pulse Oximetry 94 L 91 L 92 L 01/06/18 04:21 01/06/18 04:30 01/06/18 04:45 Temperature Pulse Rate 71 70 73 Respiratory Rate 31 H 31 H 30 H Blood Pressure 183/78 H 195/82 H 192/80 H Pulse Oximetry 93 L 93 L 93 L 01/06/18 05:00 01/06/18 05:14 01/06/18 05:15 Temperature Pulse Rate 75 71 79 Respiratory Rate 34 H 29 H 39 H Blood Pressure 212/88 H 191/85 H 231/93 H Pulse Oximetry 93 L 94 L 93 L 01/06/18 05:17 01/06/18 05:30 01/06/18 05:45 Temperature Pulse Rate 78 67 59 L Respiratory Rate 37 H 30 H 28 H Blood Pressure 191/80 H 184/88 H 193/84 H Pulse Oximetry 93 L 95 95 01/06/18 06:00 01/06/18 06:15 01/06/18 06:30 Temperature Pulse Rate 63 64 63 Respiratory Rate 28 H 28 H 27 H Blood Pressure 198/88 H 192/85 H 193/84 H Pulse Oximetry 96 95 96 01/06/18 06:45 01/06/18 07:00 01/06/18 07:15 Temperature Pulse Rate 59 L 61 68 Respiratory Rate 28 H 30 H 32 H Blood Pressure 191/83 H 190/84 H 192/87 H Pulse Oximetry 96 95 94 L 01/06/18 07:30 01/06/18 07:52 01/06/18 08:00 Temperature 98.6 F Pulse Rate 67 67 67 Respiratory Rate 28 H 30 H 29 H Blood Pressure 186/73 H 196/91 H 197/85 H Pulse Oximetry 95 93 L 93 L 01/06/18 08:15 01/06/18 08:30 01/06/18 08:39 Temperature Pulse Rate 65 76 84 Respiratory Rate 29 H 33 H 38 H Blood Pressure 190/86 H 210/117 H 180/100 H Pulse Oximetry 93 L 95 94 L 01/06/18 08:45 01/06/18 09:00 01/06/18 09:12 Temperature Pulse Rate 87 82 81 Respiratory Rate 36 H 45 H 17 Blood Pressure 196/88 H 208/86 H Pulse Oximetry 89 L 95 95 Intake & Output 01/05/18 01/06/18 01/06/18 18:59 06:59 18:59 Intake Total 650 / 650 1420 / 1420 Output Total 500 / 500 Balance 150 / 150 1420 / 1420 Intake: IV 650 / 650 1000 / 1000 NS Inj 1,000 ML @ 80 mls/hr IV. 600 / 600 1000 / 1000 CONT .[id number] [facility] Rx#: [id number] Levaquin 250 mg Premix Inj 250 50 / 50 mg In 50 ml @ 100 mls/hr IV.SIG Q24H [facility] Rx#:[id number] Oral 420 / 420 Output: Urine 500 / 500 Other: # Voids 2 Date of Last Bowel Movement 01/05/18 01/05/18 # Bowel Movements 2 # Incontinent Bowel Movements 2 Narrative: GENERAL: NAD SKIN: Warm and dry. HEAD: Normocephalic. EYES: No scleral icterus. No injection or drainage. NECK: Supple, trachea midline. No JVD or lymphadenopathy. CARDIOVASCULAR: Regular rate and rhythm, Systolic murmur RESPIRATORY: Breath sounds equal bilaterally. No accessory muscle use. GASTROINTESTINAL: Abdomen soft, non-tender, nondistended. Abdominal binder in place MUSCULOSKELETAL: No cyanosis, or edema. BACK: Nontender without obvious deformity. No CVA tenderness. - Urinary Catheter Management Indwelling Urethral Catheter Cath placed during this visit: yes Reason for continuing: Hourly intake/output Insertion date: 01/01/18 Results - Labs CBC & Chem 7: 01/06/18 05:44 01/06/18 05:44 Laboratory Results - last 24 hr 01/05/18 01/05/18 01/05/18 04:50 12:28 17:04 WBC RBC Hgb Hct MCV MCH MCHC RDW Plt Count MPV Prelim Diff (Auto) Neut % (Auto) Lymph % (Auto) [place] % (Auto) Eos % (Auto) Baso % (Auto) Neut # (Auto) Lymph # (Auto) [place] # (Auto) Eos # (Auto) Baso # (Auto) WBC Differential Seg Neuts % (Manual) Band Neuts % (Manual) Lymphocytes % (Manual) Monocytes % (Manual) Eosinophils % (Manual) Metamyelocytes % (Man) Myelocytes % (Man) Abs Neuts (Manual) Differential Comment Platelet Estimate Platelet Morphology RBC Morphology Sodium Potassium Chloride Carbon Dioxide Anion Gap BUN Creatinine Estimated GFR POC Glucose 160 H 170 H Random Glucose Hemoglobin A1c 6.4 H Calcium Phosphorus Magnesium Total Bilirubin AST ALT Alkaline Phosphatase Total Protein Albumin 01/05/18 01/06/18 01/06/18 23:00 05:44 05:44 WBC 8.5 RBC 4.75 Hgb 13.7 Hct 39.8 MCV 83.7 MCH 28.9 MCHC 34.5 RDW 13.7 Plt Count 154 MPV 8.1 Prelim Diff (Auto) Slide review pending Neut % (Auto) 77.4 H Lymph % (Auto) 13.0 [place] % (Auto) 8.1 H Eos % (Auto) 1.2 Baso % (Auto) 0.3 Neut # (Auto) 6.6 Lymph # (Auto) 1.1 [place] # (Auto) 0.7 Eos # (Auto) 0.1 Baso # (Auto) 0.0 WBC Differential Manual diff final Seg Neuts % (Manual) 68 Band Neuts % (Manual) 7 H Lymphocytes % (Manual) 16 Monocytes % (Manual) 3 Eosinophils % (Manual) 1 Metamyelocytes % (Man) 2 H Myelocytes % (Man) 3 H Abs Neuts (Manual) 6.8 Differential Comment . Platelet Estimate Normal Platelet Morphology Normal RBC Morphology Normal Sodium 147 H Potassium 3.8 Chloride 115 H Carbon Dioxide 23.4 Anion Gap 9 BUN 25 H Creatinine 0.95 Estimated GFR 75 L POC Glucose 120 H Random Glucose 128 H Hemoglobin A1c Calcium 7.7 L Phosphorus 2.1 L Magnesium 2.0 Total Bilirubin 0.7 AST 14 L ALT 10 L Alkaline Phosphatase 51 Total Protein 5.2 L Albumin 2.2 L 01/06/18 07:52 WBC RBC Hgb Hct MCV MCH MCHC RDW Plt Count MPV Prelim Diff (Auto) Neut % (Auto) Lymph % (Auto) [place] % (Auto) Eos % (Auto) Baso % (Auto) Neut # (Auto) Lymph # (Auto) [place] # (Auto) Eos # (Auto) Baso # (Auto) WBC Differential Seg Neuts % (Manual) Band Neuts % (Manual) Lymphocytes % (Manual) Monocytes % (Manual) Eosinophils % (Manual) Metamyelocytes % (Man) Myelocytes % (Man) Abs Neuts (Manual) Differential Comment Platelet Estimate Platelet Morphology RBC Morphology Sodium Potassium Chloride Carbon Dioxide Anion Gap BUN Creatinine Estimated GFR POC Glucose 122 H Random Glucose Hemoglobin A1c Calcium Phosphorus Magnesium Total Bilirubin AST ALT Alkaline Phosphatase Total Protein Albumin - Imaging ITS Impressions Chest X-Ray 12/30/17 00:00 CONCLUSION: Small to moderate left pleural effusion with left basilar airspace disease. Right lung relatively clear. Abdomen/Pelvis CT 12/30/17 14:29 CONCLUSION: 1. Left lower lobe consolidation and left pleural effusion. 2. Ascites. 3. Atherosclerosis. 4. Severe diverticulosis. 5. Abnormal dilated loops of small intestine are identified with transition point in the central abdomen, imaging features characteristic of small bowel obstruction. Liver Ultrasound 12/31/17 00:00 CONCLUSION: 1. Gallbladder sludge without definitive sonographic findings for acute cholecystitis. 2. Increased hepatic echogenicity and hepatosplenomegaly with trace ascites. 3. Redemonstration of dilated fluid-filled loops of small bowel in the lower abdomen similar to CT exam. 4. Left pleural effusion. 5. Echogenic right kidney consistent with medical renal disease. Small Bowel X-Ray 12/31/17 00:00 CONCLUSION: Findings consistent with distal small bowel obstruction. There is very limited opacification of the bowel loops due to the obstruction. No focal transition point is able to be identified. Abdomen X-Ray 01/01/18 06:00 CONCLUSION: Dilated small bowel concerning for some degree of obstruction. Venous Doppler Study 01/04/18 00:00 CONCLUSION: 1. No sonographic evidence for right upper extremity DVT. - Procedures s/p Ex lap with LUPE January 01, 2018 Assessment and Plan - Assessment (1) Small bowel obstruction Code(s): K56.609 - Unspecified intestinal obstruction, unspecified as to partial versus complete obstruction Status: Acute - Plan 87-year-old man with - Small bowel obstruction Status post ex lap with LUPE Management per general surgery, at this time giving flatus, started on REGULAR CARDIAC DM DIET - Diabetes mellitus on accu-check with SSI -Hypertension Labile BP Start Cardene drip, added Amlodipine 10 mg daily and following. LISINOPRIL 20MG PO BID INCREASE HYDRALAZINE 75MG PO TID PRN CATAPRES 0.1MG PO Q6H PRN SCHEDULE TRIAMTERENE/HCTZ -Renal insufficiency with unknown duration- Improving. Today's Creatinine 1.10 continue with IV fluid and monitor the renal function. -Ascites abdominal sonogram with trace ascites. -Possible LLL pneumonia with pleural effusion- Currently on IV Levaquin and neb treatment as needed. -History of bladder cancer. -Hypokalemia replaced and following. -DVT prophylaxis with SCD's and heparin Subcutaneous CHANGE DIET TO DM CARDIAC DIET Code Status: FULL CODE Discussed Condition With: RN AND PT Discharge Planning: PENDING TOLERATING A DIET AND BLOOD PRESSURE UNDER CONTROL
[2018-01-06] MEDS: Levofloxacin 250 mg Premix Inj 250 MG/50 ML PIGGYBACK IV.SIG SCH (13:24)
[2018-01-06] MEDS: hydrALAZINE HCl Inj 20 MG/ML Vial IV.PUSH PRN (20:13)
[2018-01-06] MEDS: traZODone 50 MG Tablet PO SCH (20:14)
[2018-01-06] MEDS: Budesonide-Formoterol 160/4.5 MCG 6 GM Inhaler INH SCH (21:34)
[2018-01-07] MEDS: niCARdipine Inj 50 MG in Sodium Chlor 0.9% Inj 480 ML IV.CONT PRN ×2 (01:43→03:43)
[2018-01-07 05:17] LABS: Eos # (Auto) 0.1 th/mm3 (0.0-0.4); Eos % (Auto) 1.1 % (0.0-4.0); Hematocrit 41.1 % (39.0-51.0); Hemoglobin 14.1 gm/dL (13.0-17.0); Lymph # (Auto) 1.1 th/mm3 (1.0-4.8); Lymph % (Auto) 13.7 % (9.0-44.0); Mean Corpuscular HGB Conc 34.2 % (32.0-36.0); Mean Corpuscular Hemoglobin 28.7 pg (27.0-34.0); Mean Corpuscular Volume 83.8 fL (80.0-100.0); Mean Platelet Volume 8.1 fL (7.0-11.0); Mono # (Auto) 0.7 th/mm3 (0.0-0.9); Mono % (Auto) 8.5 % (0.0-8.0); Neut # (Auto) 6.3 th/mm3 (1.8-7.7); Neut % (Auto) 76.7 % (16.0-70.0); Platelet Count 157 th/mm3 (150-450); Red Cell Distribution Width 14.1 % (11.6-17.2); White Blood Count 8.3 th/mm3 (4.0-11.0)
[2018-01-07 05:38] LABS: Albumin 2.3 g/dL (3.4-5.0); Anion Gap 10 meq/L (5-15); Blood Urea Nitrogen 20 mg/dL (7-18); Calcium 7.7 mg/dL (8.5-10.1); Carbon Dioxide 22.1 meq/L (21.0-32.0); Chloride 113 meq/L (98-107); Glomerular Filtration Rate 73 mL/min (>89); Glucose,Random 138 mg/dL (74-106); Potassium 3.9 meq/L (3.5-5.1); Sodium 145 meq/L (136-145)
[2018-01-07 05:39] LABS: Alanine Aminotransferase 10 U/L (12-78); Phosphorus 2.2 mg/dL (2.5-4.9)
[2018-01-07 05:43] LABS: Alkaline Phosphatase 51 U/L (45-117); Aspartate Aminotransferase 12 U/L (15-37); Total Protein 5.6 g/dL (6.4-8.2)
[2018-01-07] MEDS: Lisinopril 20 MG Tablet PO SCH ×2 (06:29→17:01)
[2018-01-07] MEDS: Triamterene/HCTZ 37.5 MG/25 MG Tablet PO SCH (08:54)
[2018-01-07] MEDS: hydrALAZINE 25 MG Tablet PO SCH (08:54)
[2018-01-07] MEDS: Budesonide-Formoterol 160/4.5 MCG 6 GM Inhaler INH SCH ×2 (08:54→20:11)
[2018-01-07] MEDS: Sodium Chloride 0.9% 2 ML Flush BID IV.FLUSH SCH ×2 (08:54→20:14)
[2018-01-07] MEDS: amLODIPine 10 MG Tablet PO SCH (08:54)
[2018-01-07] MEDS: Heparin - SQ 10,000 UNITS/ML Vial SQ SCH ×2 (08:54→20:12)
[2018-01-07] MEDS: guaiFENesin 600 MG ER Tablet PO SCH ×2 (08:54→20:12)
[2018-01-07] MEDS: Senna/Docusate Sodium 8.6/50 MG Tablet PO SCH ×2 (08:54→20:14)
[2018-01-07] MEDS: Insulin NovoLOG Aspart Correctional Sugar Inj SQ SCH ×4 (09:10→20:11)
[2018-01-07 10:12] LABS: Eosinophils 1 % (0-4); Lymphocytes 7 % (9-44); Metamyelocytes 2 % (0-1); Monocytes 5 % (0-8); Myelocytes 7 % (0-0); Platelet Estimate Normal (Normal); Platelet Morphology Normal (Normal); RBC Morphology Normal (Normal)
--- NOTE | 2018-01-07 11:28 | P.PNIM ---
Subjective Interval history: Chief Complaint: abdominal pain History of Present Illness: patient is a 87 y/o male with history of bladder cancer,hypertension and diabetes who presented to ER with abdominal pain. he says that the pain started two days ago. pain is more or less generalized with no radiation. pain is moderate in intensity. pain was associated with nausea, emesis and some loose bowel movements yesterday. he denies any sob, cough or fever. 10- f/u; small bowel obstruction in no acute distress. but uncomfortable with abdominal pain. has some nausea but with no emesis. no BM. d/w the RN at the bedside. 01-01 f/u ; small bowel obstruction in no acute distress. NG tube in place. abdominal pain is better. no nausea. still with no BM/ and abdominal distention. daughter at the bedside. d/w the RN. 01-02 Follow-up small bowel obstruction status post ex lap with LUPE/benign labile hypertension January 02, 2018-patient seen and examined, denies any significant abdominal pain; NG tube overnight with 800 cc however none since this morning. Labile BP. 01-03 This is a patient with Follow-up small bowel obstruction status post ex lap with LUPE/benign labile hypertension 01/03: Seen in his bedroom, discussed with patient and his nurse in the room Miss Hough, giving flatus but no bowel movements, recommended by General Surgery for Liquid diet, encourage ambulation, Lovenox, continue Intensive Care management, no nausea or vomit. 01-04 DIET BEING ADVANCED BY SURGERY TAKING PO MEDS HAVING BM/DIARRHEA TODAY DW RN AND PT PT AND OT AM LABS TRY TO WEAN OFF CARDENE DRIP 01-05 INCREASE BLOOD PRESSURE MEDS INCREASE HYDRALAZINE DW RN AND PT OFF CARDENE DRIP AM LABS PT AND OT 01-06 BLOOD PRESSURE HAS STILL BEEN VERY HIGH WILL INCREASE HYDRALAZINE AGAIN TRY TO KEEP OFF CARDENE DRIP AM LABS PT AND OT DW RN AND PT 01-07 BEING WEANED OFF CARDENE DRIP STABLE SBP FOR HIM IS UNDER 160 HYDRALAZINE INCREASED TO 100MG PO TID HE STATES HIS BLOOD PRESSURE RUNS 180S AT HOME DW RN AND PT TRANSFER OUT OF ICU Physical Exam Vital signs: Vital Signs 01/06/18 11:43 01/06/18 12:00 01/06/18 13:00 Temperature 98.5 F Pulse Rate 78 60 69 Respiratory Rate 38 H 30 H 32 H Blood Pressure 140/65 Pulse Oximetry 89 L 94 L 91 L 01/06/18 13:03 01/06/18 13:30 01/06/18 14:00 Temperature Pulse Rate 68 63 84 Respiratory Rate 34 H 28 H 43 H Blood Pressure 192/80 H 178/77 H 191/81 H Pulse Oximetry 91 L 92 L 89 L 01/06/18 14:30 01/06/18 15:00 01/06/18 15:30 Temperature Pulse Rate 85 90 84 Respiratory Rate 42 H 41 H 42 H Blood Pressure 150/97 H 149/72 H 162/68 H Pulse Oximetry 91 L 94 L 95 01/06/18 16:00 01/06/18 16:30 01/06/18 17:00 Temperature 98.7 F Pulse Rate 80 70 68 Respiratory Rate 35 H 31 H 30 H Blood Pressure 188/81 H 187/91 H 207/86 H Pulse Oximetry 93 L 93 L 92 L 01/06/18 19:47 01/06/18 20:00 01/07/18 00:00 Temperature 98.5 F 98.1 F Pulse Rate 71 71 68 Respiratory Rate 18 37 H 26 H Blood Pressure 194/77 H 203/88 H Pulse Oximetry 94 L 96 01/07/18 04:00 01/07/18 08:00 01/07/18 08:26 Temperature 98.0 F 97.4 F L Pulse Rate 72 88 99 H Respiratory Rate 26 H 29 H 22 Blood Pressure 171/75 H 155/66 H Pulse Oximetry 92 L 92 L Intake & Output 01/06/18 01/07/18 01/07/18 18:59 06:59 18:59 Intake Total 530 / 530 2240 / 2240 500 / 500 Output Total 450 / 450 1050 / 1050 Balance 80 / 80 1190 / 1190 500 / 500 Weight 81.8 kg Intake: IV 50 / 50 2000 / 2000 500 / 500 NS Inj 1,000 ML @ 80 mls/hr IV. 1000 / 1000 CONT .[id number] [facility] Rx#: [id number] Cardene Inj 50 MG In NS Inj 480 1000 / 1000 500 / 500 ML @ 5 MG/HR 50 mls/hr IV.CONT TITRATE PRN Rx#:[id number] Levaquin 250 mg Premix Inj 250 50 / 50 mg In 50 ml @ 100 mls/hr IV.SIG Q24H [facility] Rx#:[id number] Oral 480 / 480 240 / 240 Output: Urine 450 / 450 1050 / 1050 Other: # Voids 4 6 Date of Last Bowel Movement 01/06/18 01/06/18 01/06/18 # Incontinent Bowel Movements 1 Narrative: GENERAL: NAD SKIN: Warm and dry. HEAD: Normocephalic. EYES: No scleral icterus. No injection or drainage. NECK: Supple, trachea midline. No JVD or lymphadenopathy. CARDIOVASCULAR: Regular rate and rhythm, Systolic murmur RESPIRATORY: Breath sounds equal bilaterally. No accessory muscle use. GASTROINTESTINAL: Abdomen soft, non-tender, nondistended. Abdominal binder in place MUSCULOSKELETAL: No cyanosis, or edema. BACK: Nontender without obvious deformity. No CVA tenderness. - Urinary Catheter Management Indwelling Urethral Catheter Cath placed during this visit: yes Reason for continuing: Hourly intake/output Insertion date: 01/01/18 Results - Labs CBC & Chem 7: 01/07/18 04:14 01/07/18 04:14 Laboratory Results - last 24 hr 01/06/18 01/06/18 01/06/18 13:02 17:53 20:20 WBC RBC Hgb Hct MCV MCH MCHC RDW Plt Count MPV Prelim Diff (Auto) Neut % (Auto) Lymph % (Auto) [place] % (Auto) Eos % (Auto) Baso % (Auto) Neut # (Auto) Lymph # (Auto) [place] # (Auto) Eos # (Auto) Baso # (Auto) WBC Differential Seg Neuts % (Manual) Band Neuts % (Manual) Lymphocytes % (Manual) Monocytes % (Manual) Eosinophils % (Manual) Metamyelocytes % (Man) Myelocytes % (Man) Abs Neuts (Manual) Differential Comment Platelet Estimate Platelet Morphology RBC Morphology Sodium Potassium Chloride Carbon Dioxide Anion Gap BUN Creatinine Estimated GFR POC Glucose 142 H 138 H 145 H Random Glucose Calcium Phosphorus Magnesium Total Bilirubin AST ALT Alkaline Phosphatase Total Protein Albumin 01/07/18 01/07/18 01/07/18 04:14 04:14 08:57 WBC 8.3 RBC 4.90 Hgb 14.1 Hct 41.1 MCV 83.8 MCH 28.7 MCHC 34.2 RDW 14.1 Plt Count 157 MPV 8.1 Prelim Diff (Auto) Slide review pending Neut % (Auto) 76.7 H Lymph % (Auto) 13.7 [place] % (Auto) 8.5 H Eos % (Auto) 1.1 Baso % (Auto) 0.0 Neut # (Auto) 6.3 Lymph # (Auto) 1.1 [place] # (Auto) 0.7 Eos # (Auto) 0.1 Baso # (Auto) 0.0 WBC Differential Manual diff final Seg Neuts % (Manual) 76 H Band Neuts % (Manual) 2 Lymphocytes % (Manual) 7 L Monocytes % (Manual) 5 Eosinophils % (Manual) 1 Metamyelocytes % (Man) 2 H Myelocytes % (Man) 7 H Abs Neuts (Manual) 7.2 Differential Comment . Platelet Estimate Normal Platelet Morphology Normal RBC Morphology Normal Sodium 145 Potassium 3.9 Chloride 113 H Carbon Dioxide 22.1 Anion Gap 10 BUN 20 H Creatinine 0.98 Estimated GFR 73 L POC Glucose 153 H Random Glucose 138 H Calcium 7.7 L Phosphorus 2.2 L Magnesium 2.0 Total Bilirubin 0.7 AST 12 L ALT 10 L Alkaline Phosphatase 51 Total Protein 5.6 L Albumin 2.3 L - Imaging ITS Impressions Chest X-Ray 12/30/17 00:00 CONCLUSION: Small to moderate left pleural effusion with left basilar airspace disease. Right lung relatively clear. Abdomen/Pelvis CT 12/30/17 14:29 CONCLUSION: 1. Left lower lobe consolidation and left pleural effusion. 2. Ascites. 3. Atherosclerosis. 4. Severe diverticulosis. 5. Abnormal dilated loops of small intestine are identified with transition point in the central abdomen, imaging features characteristic of small bowel obstruction. Liver Ultrasound 12/31/17 00:00 CONCLUSION: 1. Gallbladder sludge without definitive sonographic findings for acute cholecystitis. 2. Increased hepatic echogenicity and hepatosplenomegaly with trace ascites. 3. Redemonstration of dilated fluid-filled loops of small bowel in the lower abdomen similar to CT exam. 4. Left pleural effusion. 5. Echogenic right kidney consistent with medical renal disease. Small Bowel X-Ray 12/31/17 00:00 CONCLUSION: Findings consistent with distal small bowel obstruction. There is very limited opacification of the bowel loops due to the obstruction. No focal transition point is able to be identified. Abdomen X-Ray 01/01/18 06:00 CONCLUSION: Dilated small bowel concerning for some degree of obstruction. Venous Doppler Study 01/04/18 00:00 CONCLUSION: 1. No sonographic evidence for right upper extremity DVT. - Procedures s/p Ex lap with LUPE January 01, 2018 Assessment and Plan - Assessment (1) Small bowel obstruction Code(s): K56.609 - Unspecified intestinal obstruction, unspecified as to partial versus complete obstruction Status: Acute - Plan 87-year-old man with - Small bowel obstruction Status post ex lap with LUPE Management per general surgery, at this time giving flatus, started on REGULAR CARDIAC DM DIET - Diabetes mellitus on accu-check with SSI -Hypertension Labile BP Start Cardene drip, added Amlodipine 10 mg daily and following. LISINOPRIL 20MG PO BID INCREASE HYDRALAZINE 100MG PO TID PRN CATAPRES 0.1MG PO Q6H PRN SCHEDULE TRIAMTERENE/HCTZ GOOD BLOOD PRESSURE FOR THE PATIENT IS SBP OF 160S OR LESS -Renal insufficiency with unknown duration- Improving. Today's Creatinine 1.10 continue with IV fluid and monitor the renal function. -Ascites abdominal sonogram with trace ascites. -Possible LLL pneumonia with pleural effusion- Currently on IV Levaquin and neb treatment as needed. -History of bladder cancer. -Hypokalemia replaced and following. -DVT prophylaxis with SCD's and heparin Subcutaneous CHANGE DIET TO DM CARDIAC DIET TRANSFER OUT OF ICU OFF CARDENE DRIP Code Status: FULL CODE Discussed Condition With: RN AND PT AND CM Discharge Planning: PENDING TOLERATING A DIET AND BLOOD PRESSURE UNDER CONTROL
[2018-01-07] MEDS: Sod Chloride 0.9% Inj 1,000 ML IV.CONT SCH (11:31)
[2018-01-07] MEDS: Levofloxacin 250 mg Premix Inj 250 MG/50 ML PIGGYBACK IV.SIG SCH (11:31)
[2018-01-07] MEDS: traZODone 50 MG Tablet PO SCH (20:12)
[2018-01-08 05:08] LABS: Baso % (Auto) 0.1 % (0.0-2.0); Eos % (Auto) 0.4 % (0.0-4.0); Hematocrit 40.9 % (39.0-51.0); Hemoglobin 13.7 gm/dL (13.0-17.0); Lymph # (Auto) 0.7 th/mm3 (1.0-4.8); Lymph % (Auto) 7.7 % (9.0-44.0); Mean Corpuscular HGB Conc 33.6 % (32.0-36.0); Mean Corpuscular Hemoglobin 28.5 pg (27.0-34.0); Mean Corpuscular Volume 84.8 fL (80.0-100.0); Mono # (Auto) 0.7 th/mm3 (0.0-0.9); Mono % (Auto) 7.4 % (0.0-8.0); Neut # (Auto) 7.7 th/mm3 (1.8-7.7); Neut % (Auto) 84.4 % (16.0-70.0); Platelet Count 165 th/mm3 (150-450); Red Blood Count 4.83 mil/mm3 (4.50-5.90); Red Cell Distribution Width 14.3 % (11.6-17.2); White Blood Count 9.1 th/mm3 (4.0-11.0)
[2018-01-08 05:35] LABS: Albumin 2.1 g/dL (3.4-5.0); Anion Gap 8 meq/L (5-15); Aspartate Aminotransferase 16 U/L (15-37); Blood Urea Nitrogen 18 mg/dL (7-18); Calcium 7.5 mg/dL (8.5-10.1); Chloride 112 meq/L (98-107); Glomerular Filtration Rate 69 mL/min (>89); Glucose,Random 145 mg/dL (74-106); Sodium 143 meq/L (136-145)
[2018-01-08 05:37] LABS: Alanine Aminotransferase 10 U/L (12-78); Phosphorus 2.5 mg/dL (2.5-4.9)
[2018-01-08 05:38] LABS: Alkaline Phosphatase 48 U/L (45-117); Total Protein 5.2 g/dL (6.4-8.2)
[2018-01-08] MEDS: Lisinopril 20 MG Tablet PO SCH ×2 (06:16→19:07)
[2018-01-08] MEDS: Sod Chloride 0.9% Inj 1,000 ML IV.CONT SCH ×2 (06:20→19:06)
[2018-01-08 07:43] LABS: Lymphocytes 9 % (9-44); Metamyelocytes 1 % (0-1); Monocytes 4 % (0-8); Platelet Estimate Normal (Normal); Platelet Morphology Normal (Normal); RBC Morphology Normal (Normal)
[2018-01-08] MEDS: amLODIPine 10 MG Tablet PO SCH (08:08)
[2018-01-08] MEDS: Senna/Docusate Sodium 8.6/50 MG Tablet PO SCH ×2 (08:08→20:00)
[2018-01-08] MEDS: Heparin - SQ 10,000 UNITS/ML Vial SQ SCH ×2 (08:08→20:02)
[2018-01-08] MEDS: guaiFENesin 600 MG ER Tablet PO SCH ×2 (08:08→20:02)
[2018-01-08] MEDS: Budesonide-Formoterol 160/4.5 MCG 6 GM Inhaler INH SCH ×3 (08:09→20:02)
[2018-01-08] MEDS: Sodium Chloride 0.9% 2 ML Flush BID IV.FLUSH SCH ×2 (08:10→20:02)
[2018-01-08] MEDS: Triamterene/HCTZ 37.5 MG/25 MG Tablet PO SCH (09:01)
[2018-01-08] MEDS: Insulin NovoLOG Aspart Correctional Sugar Inj SQ SCH ×4 (09:59→20:02)
[2018-01-08] MEDS ORDERED: Levofloxacin 500 mg Premix Inj 500 MG/100 ML PIGGYBACK IV.SIG SCH (12:00)
--- NOTE | 2018-01-08 13:00 | P.PNIM ---
Subjective Interval history: Chief Complaint: abdominal pain History of Present Illness: patient is a 87 y/o male with history of bladder cancer,hypertension and diabetes who presented to ER with abdominal pain. he says that the pain started two days ago. pain is more or less generalized with no radiation. pain is moderate in intensity. pain was associated with nausea, emesis and some loose bowel movements yesterday. he denies any sob, cough or fever. 10 f/u; small bowel obstruction in no acute distress. but uncomfortable with abdominal pain. has some nausea but with no emesis. no BM. d/w the RN at the bedside. 01-01 f/u ; small bowel obstruction in no acute distress. NG tube in place. abdominal pain is better. no nausea. still with no BM/ and abdominal distention. daughter at the bedside. d/w the RN. 01-02 Follow-up small bowel obstruction status post ex lap with LUPE/benign labile hypertension January 02, 2018-patient seen and examined, denies any significant abdominal pain; NG tube overnight with 800 cc however none since this morning. Labile BP. 01-03 This is a patient with Follow-up small bowel obstruction status post ex lap with LUPE/benign labile hypertension 01/03: Seen in his bedroom, discussed with patient and his nurse in the room Miss Hough, giving flatus but no bowel movements, recommended by General Surgery for Liquid diet, encourage ambulation, Lovenox, continue Intensive Care management, no nausea or vomit. 01-04 DIET BEING ADVANCED BY SURGERY TAKING PO MEDS HAVING BM/DIARRHEA TODAY DW RN AND PT PT AND OT AM LABS TRY TO WEAN OFF CARDENE DRIP 01-05 INCREASE BLOOD PRESSURE MEDS INCREASE HYDRALAZINE DW RN AND PT OFF CARDENE DRIP AM LABS PT AND OT 01-06 BLOOD PRESSURE HAS STILL BEEN VERY HIGH WILL INCREASE HYDRALAZINE AGAIN TRY TO KEEP OFF CARDENE DRIP AM LABS PT AND OT DW RN AND PT 01-07 BEING WEANED OFF CARDENE DRIP STABLE SBP FOR HIM IS UNDER 160 HYDRALAZINE INCREASED TO 100MG PO TID HE STATES HIS BLOOD PRESSURE RUNS 180S AT HOME DW RN AND PT TRANSFER OUT OF ICU 01-08 BLOOD PRESSURE A LITTLE BETTER CONTROLLED HAS SOME DIZZINESS WITH IT BEING CONTROLLED DW RN AND PT AND CM WILL NEED HHC AT DC AM LABS Physical Exam Vital signs: Vital Signs 01/07/18 13:25 01/07/18 16:00 01/07/18 20:00 Temperature 97.9 F 98.3 F Pulse Rate 85 86 81 Respiratory Rate 24 28 H 18 Blood Pressure 153/65 H 149/65 H Pulse Oximetry 93 L 92 L 01/07/18 20:45 01/08/18 00:00 01/08/18 04:00 Temperature 97.3 F L 98.2 F Pulse Rate 81 86 73 Respiratory Rate 18 18 Blood Pressure 158/69 H 172/77 H Pulse Oximetry 94 L 92 L 92 L 01/08/18 08:00 01/08/18 08:51 01/08/18 11:52 Temperature 97.7 F 97.9 F Pulse Rate 82 80 80 Respiratory Rate 18 18 Blood Pressure 183/76 H 176/77 H Pulse Oximetry 90 L 91 L 92 L Intake & Output 01/07/18 01/08/18 01/08/18 18:59 06:59 18:59 Intake Total 2150 / 2150 Output Total 400 / 400 725 / 725 Balance 1750 / 1750 -725 / -725 Weight 81 kg Intake: IV 1550 / 1550 NS Inj 1,000 ML @ 80 mls/hr IV. 1000 / 1000 CONT .[id number] [facility] Rx#: [id number] Cardene Inj 50 MG In NS Inj 480 500 / 500 ML @ 5 MG/HR 50 mls/hr IV.CONT TITRATE PRN Rx#:[id number] Levaquin 250 mg Premix Inj 250 50 / 50 mg In 50 ml @ 100 mls/hr IV.SIG Q24H [facility] Rx#:[id number] Oral 600 / 600 Output: Urine 400 / 400 725 / 725 Other: # Voids 1 Date of Last Bowel Movement 01/06/18 01/06/18 01/06/18 Narrative: GENERAL: NAD SKIN: Warm and dry. HEAD: Normocephalic. EYES: No scleral icterus. No injection or drainage. NECK: Supple, trachea midline. No JVD or lymphadenopathy. CARDIOVASCULAR: Regular rate and rhythm, Systolic murmur RESPIRATORY: Breath sounds equal bilaterally. No accessory muscle use. GASTROINTESTINAL: Abdomen soft, non-tender, nondistended. Abdominal binder in place MUSCULOSKELETAL: No cyanosis, or edema. BACK: Nontender without obvious deformity. No CVA tenderness. - Urinary Catheter Management Indwelling Urethral Catheter Cath placed during this visit: yes Reason for continuing: Hourly intake/output Insertion date: 01/01/18 Results - Labs CBC & Chem 7: 01/08/18 04:30 01/08/18 04:30 Laboratory Results - last 24 hr 01/07/18 01/07/18 01/07/18 13:24 16:16 19:55 WBC RBC Hgb Hct MCV MCH MCHC RDW Plt Count MPV Prelim Diff (Auto) Neut % (Auto) Lymph % (Auto) Yates % (Auto) Eos % (Auto) Baso % (Auto) Neut # (Auto) Lymph # (Auto) Yates # (Auto) Eos # (Auto) Baso # (Auto) WBC Differential Seg Neuts % (Manual) Band Neuts % (Manual) Lymphocytes % (Manual) Monocytes % (Manual) Metamyelocytes % (Man) Abs Neuts (Manual) Differential Comment Platelet Estimate Platelet Morphology RBC Morphology Sodium Potassium Chloride Carbon Dioxide Anion Gap BUN Creatinine Estimated GFR POC Glucose 186 H 163 H 161 H Random Glucose Calcium Phosphorus Magnesium Total Bilirubin AST ALT Alkaline Phosphatase Total Protein Albumin 01/08/18 01/08/18 01/08/18 04:30 04:30 07:58 WBC 9.1 RBC 4.83 Hgb 13.7 Hct 40.9 MCV 84.8 MCH 28.5 MCHC 33.6 RDW 14.3 Plt Count 165 MPV 8.0 Prelim Diff (Auto) Slide review pending Neut % (Auto) 84.4 H Lymph % (Auto) 7.7 L Yates % (Auto) 7.4 Eos % (Auto) 0.4 Baso % (Auto) 0.1 Neut # (Auto) 7.7 Lymph # (Auto) 0.7 L Yates # (Auto) 0.7 Eos # (Auto) 0.0 Baso # (Auto) 0.0 WBC Differential Manual diff final Seg Neuts % (Manual) 77 H Band Neuts % (Manual) 9 H Lymphocytes % (Manual) 9 Monocytes % (Manual) 4 Metamyelocytes % (Man) 1 Abs Neuts (Manual) 7.9 H Differential Comment . Platelet Estimate Normal Platelet Morphology Normal RBC Morphology Normal Sodium 143 Potassium 4.0 Chloride 112 H Carbon Dioxide 23.0 Anion Gap 8 BUN 18 Creatinine 1.02 Estimated GFR 69 L POC Glucose 143 H Random Glucose 145 H Calcium 7.5 L Phosphorus 2.5 Magnesium 2.0 Total Bilirubin 0.6 AST 16 ALT 10 L Alkaline Phosphatase 48 Total Protein 5.2 L Albumin 2.1 L 01/08/18 12:09 WBC RBC Hgb Hct MCV MCH MCHC RDW Plt Count MPV Prelim Diff (Auto) Neut % (Auto) Lymph % (Auto) Yates % (Auto) Eos % (Auto) Baso % (Auto) Neut # (Auto) Lymph # (Auto) Yates # (Auto) Eos # (Auto) Baso # (Auto) WBC Differential Seg Neuts % (Manual) Band Neuts % (Manual) Lymphocytes % (Manual) Monocytes % (Manual) Metamyelocytes % (Man) Abs Neuts (Manual) Differential Comment Platelet Estimate Platelet Morphology RBC Morphology Sodium Potassium Chloride Carbon Dioxide Anion Gap BUN Creatinine Estimated GFR POC Glucose 149 H Random Glucose Calcium Phosphorus Magnesium Total Bilirubin AST ALT Alkaline Phosphatase Total Protein Albumin - Imaging ITS Impressions Chest X-Ray 12/30/17 00:00 CONCLUSION: Small to moderate left pleural effusion with left basilar airspace disease. Right lung relatively clear. Abdomen/Pelvis CT 12/30/17 14:29 CONCLUSION: 1. Left lower lobe consolidation and left pleural effusion. 2. Ascites. 3. Atherosclerosis. 4. Severe diverticulosis. 5. Abnormal dilated loops of small intestine are identified with transition point in the central abdomen, imaging features characteristic of small bowel obstruction. Liver Ultrasound 12/31/17 00:00 CONCLUSION: 1. Gallbladder sludge without definitive sonographic findings for acute cholecystitis. 2. Increased hepatic echogenicity and hepatosplenomegaly with trace ascites. 3. Redemonstration of dilated fluid-filled loops of small bowel in the lower abdomen similar to CT exam. 4. Left pleural effusion. 5. Echogenic right kidney consistent with medical renal disease. Small Bowel X-Ray 12/31/17 00:00 CONCLUSION: Findings consistent with distal small bowel obstruction. There is very limited opacification of the bowel loops due to the obstruction. No focal transition point is able to be identified. Abdomen X-Ray 01/01/18 06:00 CONCLUSION: Dilated small bowel concerning for some degree of obstruction. Venous Doppler Study 01/04/18 00:00 CONCLUSION: 1. No sonographic evidence for right upper extremity DVT. - Procedures s/p Ex lap with LUPE January 01, 2018 Assessment and Plan - Assessment (1) Small bowel obstruction Code(s): K56.609 - Unspecified intestinal obstruction, unspecified as to partial versus complete obstruction Status: Acute - Plan 87-year-old man with - Small bowel obstruction Status post ex lap with LUPE Management per general surgery, at this time giving flatus, started on REGULAR CARDIAC DM DIET - Diabetes mellitus on accu-check with SSI -Hypertension Labile BP Start Cardene drip, added Amlodipine 10 mg daily and following. LISINOPRIL 20MG PO BID INCREASE HYDRALAZINE 100MG PO TID PRN CATAPRES 0.1MG PO Q6H PRN SCHEDULE TRIAMTERENE/HCTZ GOOD BLOOD PRESSURE FOR THE PATIENT IS SBP OF 160S OR LESS ADD COREG 3.125 BID -Renal insufficiency with unknown duration- Improving. Today's Creatinine 1.10 continue with IV fluid and monitor the renal function. CONTINUES TO IMPROVE -Ascites abdominal sonogram with trace ascites. -Possible LLL pneumonia with pleural effusion- Currently on IV Levaquin and neb treatment as needed. -History of bladder cancer. -Hypokalemia replaced and following. -DVT prophylaxis with SCD's and heparin Subcutaneous CHANGE DIET TO DM CARDIAC DIET Code Status: FULL CODE Discussed Condition With: RN AND PT AND CM Discharge Planning: PENDING TOLERATING A DIET AND BLOOD PRESSURE UNDER CONTROL
--- NOTE | 2018-01-08 13:01 | P.DCO ---
- Physical Therapy Order: Evaluate and treat, Improve ambulation, Strength and gait training - Occupational Therapy Order: Evaluate and treat, Improve ADL, Gross motor coordination, Fine motor coordination - Home Health Nursing Order: Medical education, Signs/symptoms of disease process, Medication education-adverse effect, Nursing assessment with vital signs, Telehealth - Home Health Aide Order: To assist in: Bathing and personal care, sfdc solution architect and meal prep - Case Management Consult Yes - Certification I have seen patient Hal Fraire on 01/08/18. My clinical findings support the need for the requested home health care services because: Limited mobility due to disease progression, Patient has SOB, Deconditioned with increased weakness, Medication compliance is questionable, Limited ability to care for self, Need for psychosocial assistance, Impaired cognition/judgement , High risk of falls I certify that my clinical findings support that this patient is homebound because: Post-op weakness, Impaired cognitive ability/safety, Hx COPD - exertion dyspnea/ weakness, Unsteady gait/balance, Need for psychosocial assistance
[2018-01-08] MEDS: traZODone 50 MG Tablet PO SCH (20:01)
[2018-01-08] MEDS ORDERED: Melatonin 5 MG Tablet PO ONE (23:09)
[2018-01-09 00:41] VITALS: RESP 18
[2018-01-09 05:49] LABS: Baso % (Auto) 0.1 % (0.0-2.0); Eos # (Auto) 0.1 th/mm3 (0.0-0.4); Eos % (Auto) 0.8 % (0.0-4.0); Hematocrit 42.3 % (39.0-51.0); Hemoglobin 14.4 gm/dL (13.0-17.0); Lymph % (Auto) 10.1 % (9.0-44.0); Mean Corpuscular HGB Conc 34.1 % (32.0-36.0); Mean Corpuscular Volume 85.2 fL (80.0-100.0); Mono # (Auto) 0.7 th/mm3 (0.0-0.9); Mono % (Auto) 6.9 % (0.0-8.0); Neut # (Auto) 7.9 th/mm3 (1.8-7.7); Neut % (Auto) 82.1 % (16.0-70.0); Platelet Count 173 th/mm3 (150-450); Red Blood Count 4.97 mil/mm3 (4.50-5.90); Red Cell Distribution Width 14.2 % (11.6-17.2); White Blood Count 9.6 th/mm3 (4.0-11.0)
[2018-01-09 06:06] LABS: Calcium 7.4 mg/dL (8.5-10.1); Carbon Dioxide 21.9 meq/L (21.0-32.0); Magnesium 2.1 mg/dL (1.5-2.5); Phosphorus 3.1 mg/dL (2.5-4.9); Potassium 4.4 meq/L (3.5-5.1); Total Protein 5.2 g/dL (6.4-8.2)
[2018-01-09] MEDS: Lisinopril 20 MG Tablet PO SCH (06:19)
[2018-01-09 08:16] LABS: Lymphocytes 8 % (9-44); Monocytes 4 % (0-8); Myelocytes 4 % (0-0); Platelet Estimate Normal (Normal); Platelet Morphology Normal (Normal)
[2018-01-09 08:17] LABS: RBC Morphology Normal (Normal)
[2018-01-09] MEDS: Insulin NovoLOG Aspart Correctional Sugar Inj SQ SCH ×2 (08:28→11:19)
[2018-01-09] MEDS: Sod Chloride 0.9% Inj 1,000 ML IV.CONT SCH (08:28)
[2018-01-09] MEDS: guaiFENesin 600 MG ER Tablet PO SCH (08:32)
[2018-01-09] MEDS: Heparin - SQ 10,000 UNITS/ML Vial SQ SCH (08:32)
[2018-01-09] MEDS: amLODIPine 10 MG Tablet PO SCH (08:32)
[2018-01-09] MEDS: Triamterene/HCTZ 37.5 MG/25 MG Tablet PO SCH (08:32)
[2018-01-09] MEDS: Senna/Docusate Sodium 8.6/50 MG Tablet PO SCH (08:33)
[2018-01-09] MEDS: Budesonide-Formoterol 160/4.5 MCG 6 GM Inhaler INH SCH (08:33)
[2018-01-09] MEDS: Sodium Chloride 0.9% 2 ML Flush BID IV.FLUSH SCH (08:39)
[2018-01-09 09:37] VITALS: BP 186/76; PULSE 62; TEMP 97.3; O2SAT 94
--- NOTE | 2018-01-09 12:39 | P.DS ---
Date of admission: 12/30/17 16:39 Primary care physician: UNKNOWN Attending physician on discharge: Stephan Gomez Anticipated date of discharge: 01/09/18 Brief History from admission: patient is a 87 y/o male with history of bladder cancer,hypertension and diabetes who presented to ER with abdominal pain. he says that the pain started two days ago. pain is more or less generalized with no radiation. pain is moderate in intensity. pain was associated with nausea, emesis and some loose bowel movements yesterday. he denies any sob, cough or fever. DS: Medications - Discharge Medications Prescriptions: amlodipine [Norvasc] 10 mg PO DAILY #30 tab hydralazine 25 mg PO QID PRN #60 tab PRN Reason: For BP > 160 systolic levofloxacin [Levaquin] 500 mg PO DAILY #5 tab lisinopril 20 mg PO BID #60 tab DS: Summary Hospital Course: Mr. Fraire is a pleasant 87-year-old male with a history of bladder cancer, hypertension, diabetes mellitus who was admitted to the hospital on due to abdominal pain. He was diagnosed with small bowel obstruction. General surgery was consulted. He underwent diagnostic laparoscopic surgical intervention on 01/01/2018. Post surgery patient continued to do well and he started tolerating regular diet. His blood pressure was difficult to control. At home he takes lisinopril 20 mg twice daily. During this hospitalization, amlodipine was added as well as hydralazine. The day of discharge his blood pressure was 177/75 with heart rate 72. I had a long discussion with the patient and patient's daughter regarding blood pressure control. At this point we would prefer to give him on amlodipine 10 mg daily and lisinopril 20 mg twice daily. Hydralazine 25 mg 4 times a day as needed for blood pressure above 160s systolic. I encourage patient to measure his blood pressure once or twice a day. He also needs to follow-up with his primary care physician to adjust blood pressure medications. We would prefer not to use clonidine tablets for blood pressure control at home. If absolutely needed, clonidine patch could be considered. On the other hand, if blood pressure is well controlled, amlodipine can be cut in half to 5 mg daily and lisinopril 20 mg daily. We discussed all these at length and patient's daughter verbalized understanding. Patient does not want to go to rehab. He also does not want any home health. Patient's granddaughter is a CONTIN[employer]ING EDUCATION SPECIALIST. Daughter mentioned that patient will always have somebody to take care of him. We will subsequently discharge patient home with daughter. - Time Spent with Patient Total time spent providing and/or coordinating discharge services: Less than 30 minutes - Quality: VTE Deep Vein Thrombosis/Pulmonary Embolism Present on Admission: No Exam Vital signs: Vital Signs 01/08/18 16:54 01/08/18 20:00 01/09/18 00:00 Temperature 98.1 F 98.3 F 97.8 F Pulse Rate 68 69 67 Respiratory Rate 18 19 18 Blood Pressure 182/77 H 168/69 H 179/83 H Pulse Oximetry 92 L 92 L 93 L 01/09/18 04:00 01/09/18 08:00 Temperature 97.2 F L 97.3 F L Pulse Rate 65 62 Respiratory Rate 18 18 Blood Pressure 181/83 H 186/76 H Pulse Oximetry 95 94 L Intake & Output 01/08/18 01/09/18 01/09/18 18:59 06:59 18:59 Intake Total 800 / 800 Output Total 1100 / 1100 575 / 575 Balance -300 / -300 -575 / -575 Weight 81 kg Intake: Oral 800 / 800 Output: Urine 1100 / 1100 575 / 575 Other: Date of Last Bowel Movement 01/06/18 01/08/18 01/08/18 Narrative: GENERAL: Alert, NAD. SKIN: Warm and dry. HEAD: Normocephalic. EYES: No scleral icterus. No injection or drainage. NECK: Supple, trachea midline. No JVD or lymphadenopathy. CARDIOVASCULAR: Regular rate and rhythm without murmurs, gallops, or rubs. RESPIRATORY: Breath sounds equal bilaterally. No accessory muscle use. GASTROINTESTINAL: Abdomen soft, non-tender, nondistended. MUSCULOSKELETAL: No cyanosis, or edema. BACK: Nontender without obvious deformity. No CVA tenderness. Results Procedures completed during hospitalization: s/p Ex lap with LUPE January 01, 2018 Labs on day of discharge: Labs from last 24 hours 01/09/18 01/09/18 01/09/18 11:15 04:49 04:49 WBC 9.6 RBC 4.97 Hgb 14.4 Hct 42.3 MCV 85.2 MCH 29.0 MCHC 34.1 RDW 14.2 Plt Count 173 MPV 8.0 Prelim Diff (Auto) Slide review pending Neut % (Auto) 82.1 H Lymph % (Auto) 10.1 Lyon % (Auto) 6.9 Eos % (Auto) 0.8 Baso % (Auto) 0.1 Neut # (Auto) 7.9 H Lymph # (Auto) 1.0 Lyon # (Auto) 0.7 Eos # (Auto) 0.1 Baso # (Auto) 0.0 WBC Differential Manual diff final Seg Neuts % (Manual) 80 H Band Neuts % (Manual) 4 Lymphocytes % (Manual) 8 L Monocytes % (Manual) 4 Myelocytes % (Man) 4 H Abs Neuts (Manual) 8.4 H Differential Comment . Platelet Estimate Normal Platelet Morphology Normal RBC Morphology Normal Sodium 141 Potassium 4.4 Chloride 110 H Carbon Dioxide 21.9 Anion Gap 9 BUN 20 H Creatinine 1.01 Estimated GFR 70 L POC Glucose 131 H Random Glucose 111 H Calcium 7.4 L* Prot Corrected Calcium 8.5 Phosphorus 3.1 Magnesium 2.1 Total Bilirubin 0.5 AST 14 L ALT 10 L Alkaline Phosphatase 53 Total Protein 5.2 L Albumin 2.0 L 01/08/18 01/08/18 19:55 16:43 WBC RBC Hgb Hct MCV MCH MCHC RDW Plt Count MPV Prelim Diff (Auto) Neut % (Auto) Lymph % (Auto) Lyon % (Auto) Eos % (Auto) Baso % (Auto) Neut # (Auto) Lymph # (Auto) Lyon # (Auto) Eos # (Auto) Baso # (Auto) WBC Differential Seg Neuts % (Manual) Band Neuts % (Manual) Lymphocytes % (Manual) Monocytes % (Manual) Myelocytes % (Man) Abs Neuts (Manual) Differential Comment Platelet Estimate Platelet Morphology RBC Morphology Sodium Potassium Chloride Carbon Dioxide Anion Gap BUN Creatinine Estimated GFR POC Glucose 112 H 113 H Random Glucose Calcium Prot Corrected Calcium Phosphorus Magnesium Total Bilirubin AST ALT Alkaline Phosphatase Total Protein Albumin - Impressions ITS Impressions Chest X-Ray 12/30/17 00:00 CONCLUSION: Small to moderate left pleural effusion with left basilar airspace disease. Right lung relatively clear. Abdomen/Pelvis CT 12/30/17 14:29 CONCLUSION: 1. Left lower lobe consolidation and left pleural effusion. 2. Ascites. 3. Atherosclerosis. 4. Severe diverticulosis. 5. Abnormal dilated loops of small intestine are identified with transition point in the central abdomen, imaging features characteristic of small bowel obstruction. Liver Ultrasound 12/31/17 00:00 CONCLUSION: 1. Gallbladder sludge without definitive sonographic findings for acute cholecystitis. 2. Increased hepatic echogenicity and hepatosplenomegaly with trace ascites. 3. Redemonstration of dilated fluid-filled loops of small bowel in the lower abdomen similar to CT exam. 4. Left pleural effusion. 5. Echogenic right kidney consistent with medical renal disease. Small Bowel X-Ray 12/31/17 00:00 CONCLUSION: Findings consistent with distal small bowel obstruction. There is very limited opacification of the bowel loops due to the obstruction. No focal transition point is able to be identified. Abdomen X-Ray 01/01/18 06:00 CONCLUSION: Dilated small bowel concerning for some degree of obstruction. Venous Doppler Study 01/04/18 00:00 CONCLUSION: 1. No sonographic evidence for right upper extremity DVT. Discharge Plan - Discharge Disposition Patient Disposition: Discharge Home - Discharge Condition Condition: Good - Discharge Order Discharge Orders: Discharge Order (Routine); Ordered 01/09/18 Ordered By: Stephan Gomez - Discharge Details Anticipated Discharge Date: 12/30/17 Discharge Comment: Discussed with pt's daughter. Use Amlodipine, Lisinopril for BP control. If needed, Hydralazine can be used PRN. Follow up with PCP to adjust BP meds. Would prefer not to use Clonidine tablets. If required, Clonidine patch would be okay. - Physicians Team Primary Care Provider: UNKNOWN, Attending Provider: Stephan Gomez Other Providers: Stu Salazar MD ; Justin Anderson
== END 2018-01-09 13:44 | disposition home or self-care (01) ==
LOC: PHED 13:26 → PHEDA 16:39 → PHICU 17:45 → HPAC 01-01 14:44 → N03 01-01 18:30 → N06 01-07 23:10
PROVIDERS: ADMIT Hospitalist; ATTEND Hospitalist